=== PATIENT | female | born 1960 | race Caucasian/White ===

== ENCOUNTER → 2018-02-19 09:46 | Outpatient (CLI) | payer BC, SELFPAY ==
--- NOTE | 2018-02-19 09:51 | RAD_ITS ---
STUDY: X-RAY - PELVIS REASON FOR EXAM: Female, 57 years old. RA. TECHNIQUE: One view of the pelvis was obtained. COMPARISON: None. FINDINGS: There is a non-specific bowel gas pattern. Normal visualized soft tissue structures. Normal bilateral iliac wings, sacroiliac joints and visualized sacrum. Normal visualized bilateral superior and inferior pubic rami. Normal pubic symphysis. Normal ischial tuberosities. Normal visualized right femoral head. Normal right acetabulum. Normal right hip joint. Normal visualized left femoral head. Normal left acetabulum. Normal left hip joint. RAD/Pelvis 1 or 2 Views IMPRESSION: Normal x-ray examination of the pelvis. Electronically Signed: Jem Kaplan MD at 11:15 EST , Service support ,
[2018-02-19 12:34] LABS: Absolute Lymphocyte Count 1.28 X10^3/ul (0.83-4.51); Absolute Neutrophil Count 3.5 X10^3/uL (2.0-7.7); Basophil# 0.01 X10^3/uL; Basophil% 0.2 % (0-1); Eosinophil# 0.08 X10^3/uL; Eosinophils% 1.5 % (0-5); Hematocrit 44.4 % (37-47); Hemoglobin 14.6 g/dl (12.0-15.0); Lymphocyte # 1.28 X10^3/ul (4.0); Lymphocyte % 24.2 % (19-41); Mean Corp Hgb Conc 32.9 g/gl (32-36); Mean Corpuscular Hgb 30.5 pg (27.0-32.0); Mean Corpuscular Volume 92.7 fL (81-99); Mean Platelet Vol. 10.2 fl (6.2-12.0); Monocyte# 0.45 X10^3/uL; Monocyte% 8.5 % (0-10); Neutrophil # 3.45 X10^3/uL (2.7-7.7); Neutrophil % 65.4 % (47-70); POSITIVE COUNT NO; POSITIVE DIFFERENTIAL NO; POSITIVE MORPHOLOGY NO; Platelet Count 287 K/mm3 (150-450); RBC Distribution Width CV 13.1 % (11.6-14.6); RBC Distribution Width SD 44.3 fl (35.1-43.9); Red Blood Count 4.79 M/mm3 (4.2-5.4); White Blood Count 5.3 K/mm3 (4.4-11.0)
[2018-02-19 12:40] LABS: ALB/GLOB Ratio 1.2 RATIO (0.9-2.4); AST(SGOT) 40 U/L (15-37); Alanine Aminotransfer ALT/SGPT 107 U/L (13-56); Albumin, Serum 4.5 g/dL (3.2-5.0); Alkaline Phosphatase 122 U/L (45-117); Anion Gap 8 (5-15); BUN 13 mg/dL (7-18); BUN/Creat Ratio 19.2 RATIO (10-20); Chloride 105 mmol/L (98-107); Creatinine, Serum 0.68 mg/dL (0.55-1.02); EST Glomerular Filtration Rate 95 mL/min (>60); Est Glom Filt Rate - Afr Amer 115 mL/min (>60); Globulin 3.9 g/dL (2.2-4.2); Glucose 85 mg/dL (74-106); Potassium 3.7 mmol/L (3.5-5.1); Protein, Total 8.4 g/dL (6.4-8.2); Rheumatoid Factor < 10.0 IU/mL (<15); Sodium Level 141 mmol/L (136-145)
[2018-02-25 22:07] LABS: QNTFERON TB Mitogen Value > 10.00 IU/mL (.); QNTFERON TB Nil Value 0.06 IU/mL (.); QNTFERON TB1+ Ag Value 0.06 IU/mL (.); QNTFERON TB2+ Ag Value 0.04 IU/mL (.)
[2018-02-27 16:39] LABS: CCP IgG Antibodies 6 units (0-19); HEPATITIS B SURFACE AG Negative (Negative); HLA B27 Negative (.); Hep B Surface Antibodies Non Reactive (.); Hep C Antibodies 0.2 s/co ratio (0.0-0.9); QNTIFERON TB Positive Criteria Negative (Negative)
== END ==
PROVIDERS: Family Provider Family Medicine; PCP Family Medicine; Referring Provider Internal Medicine Rheumatology; Visit Provider Internal Medicine Rheumatology
DX: M05.79 Rheumatoid arthritis with rheumatoid factor of multiple sites without organ or systems involvement (principal); M15.9 Polyosteoarthritis, unspecified; M21.40 Flat foot [pes planus] (acquired), unspecified foot; M51.37 Other intervertebral disc degeneration, lumbosacral region
CPT/HCPCS: 36415; 72170; 80053; 81374; 85025; 86200; 86431; 86480; 86706; 86803; 87340

== ENCOUNTER → 2018-02-26 07:37 | Outpatient (CLI) | payer BC, SELFPAY ==
--- NOTE | 2018-02-26 07:42 | US_ITS ---
STUDY: ABDOMINAL ULTRASOUND - RIGHT UPPER QUADRANT REASON FOR VISIT: Female, 58 years old. Elevated liver enzymes. TECHNIQUE: Ultrasound evaluation of the right upper quadrant was performed with real-time and static sanchez-scale imaging. TECHNICAL QUALITY: Adequate. COMPARISON: None. FINDINGS: Liver: The liver measures 13.7 cm. There is increased echogenicity consistent with a mild degree of fatty infiltration. The bile ducts are within normal limits. There is hepatic color flow. The direction of portal flow is hepatopetal. There is no demonstrated mass lesion. Gallbladder: Normal distended gallbladder. The gallbladder wall measures 2.2 mm. There is a negative sonographic Alcantar's sign. There is no pericholecystic fluid. There are no gallstones. Common Bile Duct (C.B.D.): The common bile duct measures 3.9 mm. Pancreas: Normal size of the head, body and tail of the pancreas. There is normal echogenicity of the pancreas. There is no demonstrated pancreatic mass or cyst. Right Kidney: Normal size of the right kidney. The right kidney measures 10.8 cm x 4.2 cm x 4.3 cm. Normal renal cortex. The right cortex measures 1.6 cm. There is no demonstrated renal mass or cyst. There is no right hydronephrosis. US/Liver IMPRESSION: Mild degree of fatty infiltration of the liver. Electronically Signed: Ten Bass MD at 9:58 EST Tel [phone], Service support ,
--- OUTSIDE RECORDS SUMMARY | 2018-04-30 07:52 | XMS RPT_ITS ---
:1960 Author Organization [facility] Care Team Providers Name Role Phone Shruthi Henderson Attending Unavailable Shruthi Henderson Referring Unavailable Heather Siddiqui Primary Care Unavailable Shruthi Henderson Attending Unavailable Shruthi Henderson Referring Unavailable Heather Siddiqui Primary Care Unavailable SCOOTER BOLTON Attending Unavailable SCOOTER BOLTON Referring Unavailable ANDERSKAIDEN (RACK MAKER) Referring Unavailable ANDERS, KAIDEN (RACK MAKER) Attending Unavailable ANDERSKAIDEN (RACK MAKER) Referring Unavailable ANDERS, KAIDEN (RACK MAKER) Referring Unavailable ANDERSKAIDEN (RACK MAKER) Attending Unavailable HEATHER SIDDIQUI Referring Unavailable TESTRAKESCOOTER Attending Unavailable TESTRAKESCOOTER Referring Unavailable ELDERBROCKHEATHER Attending Unavailable ELDERBROCKHEATHER Referring Unavailable TESTRAKESCOOTER Referring Unavailable TESTRAKESCOOTER Referring Unavailable TESTRAKESCOOTER Attending Unavailable TESTRAKESCOOTER Referring Unavailable BITA, BRISA (RACK MAKER) Referring Unavailable BITA BRISA (RACK MAKER) Attending Unavailable ELDERBROCKHEATHER Referring Unavailable ELDERBROCKHEATHER Referring Unavailable TESTRAKESCOOTER Referring Unavailable TESTRAKESCOOTER Attending Unavailable LIVBROHEATHER LUND Referring Unavailable ELDERBROCKHEATHER Referring Unavailable ELDERBROCKHEATHER Referring Unavailable ELDERBROCKHEATHER Attending Unavailable OLEGARIO ALVARADO (RACK MAKER) Referring Unavailable PROBLEMS PROBLEMS DATE TYPE CONDITION / CODE ATTENDING STATUS SOURCE 02/19/2018 Unknown M15.9 - Shruthi Henderson Active [facility] Polyosteoarthritis, Community unspecified / Hospital M15.9(ICD-10) Repository 02/19/2018 Unknown M21.40 - Flat foot Shruthi Henderson Active [facility] [pes planus] Community (acquired), Hospital unspecified foot / Repository M21.40(ICD-10) 02/19/2018 Unknown M51.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, Hospital lumbosacral region / Repository M51.37(ICD-10) 02/19/2018 Unknown M05.79 - Rheumatoid Shruthi Henderson Active [facility] arthritis with Community rheumatoid factor of Hospital multiple sites Repository without organ or systems involvement / M05.79(ICD-10) 02/07/2018 Active Localized swelling, NA Active [facility] mass and lump, neck [facility] / R22.1(ICD-10) [place] Repository 12/17/2017 Active Other intervertebral NA Active [facility] disc degeneration, [facility] lumbar region / [place] M51.36(ICD-10) Repository 12/17/2017 Active Joint disorder, NA Active [facility] unspecified / [facility] M25.9(ICD-10) [place] Repository 07/04/2017 Active Pain in right foot / NA Active [facility] M79.671(ICD-10) [facility] [place] Repository 05/29/2017 Active Contusion of right NA Active [facility] lesser toe(s) [facility] without damage to [place] nail, initial Repository encounter / S90.121A(ICD-10) 05/29/2017 Active Unknown / TESTRAKE, Active [facility] UNK(Unknown) SCOOTER [facility] [place] Repository 05/23/2017 Active Encounter for other NA Active [facility] specified special [facility] examinations / [place] Z01.89(ICD-10) Repository 05/23/2017 Active Encounter for NA Active [facility] screening mammogram [facility] for malignant [place] neoplasm of breast / Repository Z12.31(ICD-10) 05/15/2017 Active Unspecified injury NA Active [facility] of left lower leg, [facility] initial encounter / [place] S89.92XA(ICD-10) Repository 04/07/2017 Active Other fatigue / NA Active [facility] R53.83(ICD-10) [facility] [place] Repository 04/02/2017 Active Pain in left foot / NA Active [facility] M79.672(ICD-10) [facility] [place] Repository PROCEDURES PROCEDURES No Procedure Records FoundRESULTS RESULTS LIVER Observed: 02/26/2018 Status: F Source: [place] 7:42 AM [facility] [facility] [address] [place] [address] Liver MR#: [id number] Acct: [id number] Name: BROOK PINA Rep #: [id number] : 1960 F 58 From: Ten Bass MD PCP: Cynthia HIGGINS,Heather Status: REG CLI Study: Liver Date of Exam: 02/26/18 Exam# [id number] Ordering Dr: Shruthi Henderson MD STUDY: ABDOMINAL ULTRASOUND - RIGHT UPPER QUADRANT REASON FOR VISIT: Female, 58 years old. Elevated liver enzymes. TECHNIQUE: Ultrasound evaluation of the right upper quadrant was performed with real-time and static sanchez-scale imaging. TECHNICAL QUALITY: Adequate. COMPARISON: None. FINDINGS: Liver: The liver measures 13.7 cm. There is increased echogenicity consistent with a mild degree of fatty infiltration. The bile ducts are within normal limits. There is hepatic color flow. The direction of portal flow is hepatopetal. There is no demonstrated mass lesion. Gallbladder: Normal distended gallbladder. The gallbladder wall measures 2.2 mm. There is a negative sonographic Alcantar's sign. There is no pericholecystic fluid. There are no gallstones. Common Bile Duct (C.B.D.): The common bile duct measures 3.9 mm. Pancreas: Normal size of the head, body and tail of the pancreas. There is normal echogenicity of the pancreas. There is no demonstrated pancreatic mass or cyst. Right Kidney: Normal size of the right kidney. The right kidney measures 10.8 cm x 4.2 cm x 4.3 cm. Normal renal cortex. The right cortex measures 1.6 cm. There is no demonstrated renal mass or cyst. There is no right hydronephrosis. US/Liver IMPRESSION: Mild degree of fatty infiltration of the liver. Electronically Signed: Ten Bass MD at 9:58 EST Tel [phone], Service support , CC: Heahter Siddiqui MD; Shruthi Henderson MD 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: Signed CBC W/DIFF, AUTOMATED Collected: 02/19/2018 Status: F Source: [place] 10:01 AM [facility] [place] TYPE CODE TESTS RESULT OUT OF RANGE REFERENCE UNITS LAB L100.1000 4.4-11.0 K/mm3 Normal WBC 5.3 LAB L100.1200 4.2-5.4 M/mm3 Normal RBC 4.79 LAB L100.1300 12.0-15.0 g/dl Normal HGB 14.6 LAB L100.1400 37-47 % Normal HCT 44.4 LAB L100.1500 81-99 fL Normal MCV 92.7 LAB L100.1600 27.0-32.0 pg Normal MCH 30.5 LAB L100.1700 32-36 g/gl Normal MCHC 32.9 LAB L100.1810 11.6-14.6 % Normal RDW CV 13.1 LAB L100.1820 35.1-43.9 fl High RDW SD 44.3 LAB L100.1900 150-450 K/mm3 Normal PLT 287 LAB L100.2000 6.2-12.0 fl Normal MPV 10.2 LAB L100.2100 47-70 % Normal NEUT% 65.4 LAB L100.2200 19-41 % Normal LY% 24.2 LAB L100.2300 0-10 % Normal MONO% 8.5 LAB L100.2400 0-5 % Normal EO% 1.5 LAB L100.2500 0-1 % Normal BASO% 0.2 LAB L100.2550 0.0-0.9 % Normal IM GRAN % 0.200 Result Comment: IG% - Immature Granulocytes (promyelocytes, myelocytes and metamyelocytes) > 1% indicates that a LEFT SHIFT is Present. LAB L100.2620 2.0-7.7 X10 3/uL Normal Absolute Neut 3.5 LAB L100.2720 0.83-4.51 X10 3/ul Normal Absolute Lymph 1.28 Performed By: #### L100.0100 #### [facility] [address] [place], [place], [address] COMPREHENSIVE METABOLIC Collected: 02/19/2018 Status: F Source: [place] [facility] 10:01 AM [facility] [place] TYPE CODE TESTS RESULT OUT OF RANGE REFERENCE UNITS LAB L501.0100 74-106 mg/dL Normal GLU 85 Result Comment: Please note revised GLUCOSE reference range effective 2017. LAB L501.1000 7-18 mg/dL Normal BUN 13 LAB L501.1100 0.55-1.02 mg/dL Normal CREAT,SERUM 0.68 Result Comment: The validity of the calculated GFR AND GFRAA in patients over 70 years has not been determined. Clinical correlation is essential. LAB L501.1110 >60 mL/min Normal EST GFR 95 Result Comment: Non- GFR Calc LAB L501.1115 >60 mL/min Normal EST GFR - AA 115 Result Comment: GFR Calc LAB L501.1300 10-20 RATIO Normal BUN/CRE 19.2 LAB L501.1500 6.4-8.2 g/dL High T PROT 8.4 LAB L501.1800 3.2-5.0 g/dL Normal ALB 4.5 LAB L501.1950 2.2-4.2 g/dL Normal GLOB 3.9 LAB L501.2000 0.9-2.4 RATIO Normal A/G 1.2 LAB L501.2200 8.5-10.1 mg/dL CA Normal 9.0 LAB L501.4100 15-37 U/L High AST 40 LAB L501.4305 45-117 U/L High ALK P 122 LAB L501.4405 13-56 U/L High ALT 107 LAB L501.4600 0.20-1.00 mg/dL T Normal BILI 0.50 LAB L501.5300 136-145 mmol/L NA Normal 141 LAB L501.5600 3.5-5.1 mmol/L K Normal 3.7 LAB L501.5900 98-107 mmol/L CL Normal 105 LAB L501.6100 21.0-32.0 mmol/L Normal CO2 28.0 LAB L501.6200 5-15 Normal GAP 8 Performed By: #### L500.4050, L505.7010 #### [facility] [address] [place], [place], [address] RHEUMATOID FACTOR Collected: 02/19/2018 Status: F Source: [place] 10:01 AM [facility] [place] TYPE CODE TESTS RESULT OUT OF RANGE REFERENCE UNITS LAB L505.7010 <15 IU/mL Normal RHEUMATOID FAC < 10.0 Performed By: #### L500.4050, L505.7010 #### [facility] [address] [place], [place], [id number] HEPATITIS B SURFACE Collected: 02/19/2018 Status: F Source: [place] AG 10:01 AM [facility] [place] TYPE CODE TESTS RESULT OUT OF RANGE REFERENCE UNITS LAB L3100.0400 Negative Normal HB Negative SURF AG Result Comment: Performed at: [facility] [id number] [place] Bottom Maker: Antonio Montalvo PhD, Phone: [phone] Performed at: [address] [place] [id number] [place] Maker: Hasmukh Maciel PhD, Phone: [phone] Performed at: [address] [id number] [place] Maker: Calin Drew MD, Phone: [phone] Performed By: #### L3100.0390, L3100.0528, L3100.0625, L3400.8000, L3410.1400, L4600.0100 #### [facility] (refer to report for specific site) refer to report for address and phone number HEP B SURFACE Collected: 02/19/2018 Status: F Source: [place] ANTIBODIES 10:01 AM [facility] [place] [place] TYPE CODE TESTS RESULT OUT OF RANGE REFERENCE UNITS LAB L3100.0528 . Normal Hep B Non Reactive Tiff AB Result Comment: Non Reactive: Inconsistent with immunity, less than 10 mIU/mL Reactive: Consistent with immunity, greater than 9.9 mIU/mL Performed By: #### L3100.0390, L3100.0528, L3100.0625, L3400.8000, L3410.1400, L4600.0100 #### [facility] (refer to report for specific site) refer to report for address and phone number HEPATITIS C ANTIBODIES Collected: 02/19/2018 Status: F Source: [place] 10:01 AM [facility] [place] [place] TYPE CODE TESTS RESULT OUT OF RANGE REFERENCE UNITS LAB L3100.0650 0.0-0.9 s/co ratio Normal HEP C AB 0.2 Result Comment: Negative: < 0.8 Indeterminate: 0.8 - 0.9 Positive: > 0.9 The CDC recommends that a positive HCV antibody result be followed up with a HCV Nucleic Acid Amplification test (186517). Performed By: #### L3100.0390, L3100.0528, L3100.0625, L3400.8000, L3410.1400, L4600.0100 #### [facility] (refer to report for specific site) refer to report for address and phone number QUANTIFERON TB-GOLD+ Collected: 02/19/2018 Status: F Source: [place] 10:01 AM [facility] [place] TYPE CODE TESTS RESULT OUT OF RANGE REFERENCE UNITS LAB L3400.8025 . Normal QFT TB Comment GOLD Result Comment: The QuantiFERON-TB Gold Plus result is determined by subtracting the Nil value from either TB antigen (Ag) tube. The mitogen tube serves as a control for the test. LAB L3400.8035 . IU/mL Normal QFT TB1+ AG 0.06 [facility] L3400.8045 . IU/mL Normal QFT TB2+ AG 0.04 [facility] L3400.8055 . IU/mL Normal QFT NIL VALUE 0.06 LAB L3400.8065 . IU/mL Normal QFT MITOGEN > 10.00 [facility] L3400.8075 Negative Normal QFT TB POS Negative CRIT Result Comment: The specimen received for QuantiFERON testing was incubated by the ordering institution. Specific procedures outlined in our Directory of Services and in the package insert for the QuantiFERON Gold (In Tube) test must be followed to enable for proper stimulation of cells for the production of interferon gamma. Performed By: #### L3100.0390, L3100.0528, L3100.0625, L3400.8000, L3410.1400, L4600.0100 #### [facility] (refer to report for specific site) refer to report for address and phone number HLA B27 Collected: 02/19/2018 Status: F Source: [place] 10:01 AM [facility] [place] TYPE CODE TESTS RESULT OUT OF RANGE REFERENCE UNITS LAB L3410.1500 . Normal HLA Negative B27 Result Comment: HLA-B*27 Negative B27 allele interpretation for all loci based on IMGT/HLA database version 3.33.0 This test was developed and its performance characteristics determined by [facility]. It has not been cleared or approved by the Food and Drug Administration. [facility] CLIA ID Number [id number] This test was performed using PCR (Polymerase Chain Reaction)/SSOP (Sequence Specific Oligonucleotide Probes) technique. SBT (Sequence Based Typing) and/or SSP (Sequence Specific Primers) may be used as supplemental methods when necessary. Please contact [facility] Customer Service at if you have any questions. Director of [facility] Laboratory Dr Hasmukh Maciel, PhD Performed By: #### L3100.0390, L3100.0528, L3100.0625, L3400.8000, L3410.1400, L4600.0100 #### [facility] (refer to report for specific site) refer to report for address and phone number CCP IGG ANTIBODIES Collected: 02/19/2018 Status: F Source: [place] 10:01 [facility] REPOSITORY TYPE CODE TESTS RESULT OUT OF RANGE REFERENCE UNITS LAB L4600.0100 0-19 units Normal ANTI-CCP 6 [id number] Result Comment: Negative <20 Weak positive 20 - 39 Moderate positive 40 - 59 Strong positive >59 Performed By: #### L3100.0390, L3100.0528, L3100.0625, L3400.8000, L3410.1400, L4600.0100 #### [facility] (refer to report for specific site) refer to report for address and phone number PELVIS 1 OR 2 VIEWS Observed: 02/19/2018 Status: F Source: [place] 9:52 AM [facility] [place] [facility] [address] [place] [address] Pelvis 1 or 2 Views MR#: [id number] Acct: [id number] Name: BROOK PINA Leda Rep #: [id number] : 1960 F 57 From: Jem Kaplan MD PCP: Heather Siddiqui MD Status: REG CLI Study: Pelvis 1 or 2 Views Date of Exam: 02/19/18 Exam# [id number] Ordering Dr: Shruthi Henderson MD STUDY: X-RAY - PELVIS REASON FOR EXAM: Female, 57 years old. RA. TECHNIQUE: One view of the pelvis was obtained. COMPARISON: None. FINDINGS: There is a non-specific bowel gas pattern. Normal visualized soft tissue structures. Normal bilateral iliac wings, sacroiliac joints and visualized sacrum. Normal visualized bilateral superior and inferior pubic rami. Normal pubic symphysis. Normal ischial tuberosities. Normal visualized right femoral head. Normal right acetabulum. Normal right hip joint. Normal visualized left femoral head. Normal left acetabulum. Normal left hip joint. RAD/Pelvis 1 or 2 Views IMPRESSION: Normal x-ray examination of the pelvis. Electronically Signed: Jem Kaplan MD at 11:15 EST , Service support , CC: Heather Siddiqui MD; Shruthi Henderson MD 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: Signed US THYROID/PARATHYROID Observed: 02/07/2018 Status: F Source: [address] 8:05 AM [facility] REPOSITORY * * *Final Report* * * DATE OF EXAM: Feb 07 2018 8:05AM [facility] [place] 1048 - US THYROID/PARATHYROID / PROCEDURE REASON: Localized swelling, mass and lump, neck * * * * Physician Interpretation * * * * Ultrasound Thyroid: HISTORY: 57 years old Clinical information: Localized swelling, mass and lump, neck RIGHT lobe nodule on physical exam TECHNIQUE: Images provided: Sagittal and axial images of the thyroid.Images stored and permanent archive. Comparison: None RESULT: Measurements: Right lobe 4.5 x 2.7 x 2.6 cm . Left lobe 3.9 x 1.4 x 1.3 cm . Isthmus 0.4 cm. Thyroid texture: Unremarkable . Nodules: (If there are nodules present than measurements of largest ones given below) Right lobe: There is a large complex nodule next solid and cystic measuring 3.3 x 2.6 cm. It is in the lower pole the RIGHT lobe. . Left lobe: None . Isthmus: None . IMPRESSION: Large complex nodule RIGHT lobe thyroid. Biopsy recommended 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: DAVID Transcribe Date/Time: Feb 07 2018 8:37A Dictated by : ROMY DELONG DO This examination was interpreted and the report reviewed and electronically signed by: ROMY DELONG DO on Feb 07 2018 8:39AM EST [id number] Observed: 02/07/2018 Status: COMPLETED Source: [address] 8:01 AM [facility] REPOSITORY HNO ID: [id number] Author: Belkis Wood Rdms Service: (none) Author Type: (none) Type: Progress Notes Filed: 02/07/2018 8:01 AM Note Text: Radiology Service Progress Note PATIENT NAME: Brook Pina DATE OF SERVICE: February 07, 2018 TIME: 8:01 AM PATIENT IDENTITY VERIFICATION COMPLETED USING TWO (2) METHODS: Patient confirmed name verbally and Date of . PATIENT GENDER DATA: Female. status: : No status: NO. PATIENT RELEVANT IMPLANT DATA REVIEWED: Not Applicable RADIOLOGY DEPARTMENT: Ultrasound PERIPHERAL IV DATA: Not applicable SIGNED BY: Belkis Wood Rdms February 07, 2018 8:01 AM PROGRESS Observed: 02/01/2018 Status: COMPLETED Source: [address] 3:45 PM [facility] REPOSITORY HNO ID: [id number] Author: Kaiden Mcnamara Service: (none) Author Type: Nurse Practitioner Type: Progress Notes Filed: 02/01/2018 4:07 PM Note Text: Chief Complaint Patient presents with: Mass HPI Brook Pina is a 57 year old female who presents here today for Above Complaints. Patient presents today for evaluation of thyroid. Patient believes that she has a lump on her thyroid. Had a normal TSH in 04/2017. Location is to the right side of the thyroid. No pain. Does state that she feels it when she swallows. Duration is approximately 3 weeks. No change in size. States that she was ill approximately one month ago with sneezing, sore throat, fatigue, coughing. These symptoms have resolved. No fevers or chills. Some hot flashes. No chest pain, shortness of breath, constipation, diarrhea. Does state she had some palpitations last month when she was ill. Patient was taking decongestants. Denies any swelling of her lymph nodes. No throat swelling. Patient is a former smoker. Occasional alcohol use. Past medical history, appointments, medications, allergies reviewed. Previous Medical History PAST MEDICAL HISTORY Diagnosis Date - Abdominal pain, epigastric - Arthritis of right hip - Diverticulosis of colon (without mention of hemorrhage) - Dysthymic disorder Depression (non-psychotic) - Internal hemorrhoids without mention of complication Previous Surgical History PAST SURGICAL HISTORY Procedure Laterality Date - BX OF BREAST; INCISIONAL 1987 Bx of breast, incisional - left nipple - CARPAL TUNNEL 09/13/2015, 10/18/2015 right 09/12, left 10/17 - DELIVERY ONLY , low cervical - COLONOSCOP W/ OR W/O BRSH SPEC 08/18/11 repeat 10 years - EGD W/O OR W/BRUSH/WASH 01/30/2013 EGD - LIGATE FALLOPIAN TUBE Tubal ligation - REMOVAL OF TONSILS,<12 Y/O Tonsillectomy - US BX OF BREAST NEEDLE 2007 Right, benign Family History FAMILY HISTORY Problem Relation Age of Onset - Alcohol/Drug Paternal Grandfather - Allergies Mother - Allergies Sister - Cancer Maternal Grandmother - Colon Cancer Maternal Aunt - Diabetes Brother - Alzheimer's Disease Mother - other (depression [Other]) Sister 2 sisters - other (depression [Other]) Mother - Hypertension Sister - Hypertension Sister - Stroke Mother TIA's - Coronary Artery Disease Maternal Grandfather - Aneurysm Father 84 - Arthritis Unknown Maternal side of family Patient Allergies ALLERGIES Allergen Reactions - Seasonal Allergies Other: See Comments headaches Current Medications Current Outpatient Prescriptions on File Prior to Visit: LORazepam (ATIVAN) 0.5 mg tab Take 1 tablet by mouth twice daily as needed for up to 30 days. MELATONIN ORAL Take by mouth. meloxicam (MOBIC) 15 mg tablet Take 1 tablet by mouth once daily. With food. venlafaxine ER (EFFEXOR XR) 37.5 mg 24 hr capsule Take 1-2 capsules by mouth once daily. No current facility-administered medications on file prior to visit. Social History Social History Marital status: Spouse name: Jammie Years of education: Number of children: 2 Social History Main Topics Smoking status: Former Smoker Packs/day: 0.00 Years: 0.00 Smokeless tobacco: Never Used Alcohol use: Yes 36.0 oz/week Comment: Occasionally Drug use: No Sexual activity: Yes Partners with: Male control/protection: Tubal Ligation REVIEW OF SYSTEMS: as above ? Reviewed relevant PMHx, PSHx, Social Hx, current medications and allergies. EXAM: BP 127/81 Pulse 72 Temp 36.7 ?C (98 ?F) (Tympanic) Wt 67.1 kg (148 lb) BMI 28.19 kg/m? General Appearance: Well appearing, alert, in no acute distress, well-hydrated, well nourished.. Head: Normocephalic, no masses, lesions, tenderness or abnormalities. Eyes: Anicteric sclera. Pupils are equally round and reactive to light. Extraocular movements are intact. . Ears: External ears normal, canals clear. Nose/Sinuses: Nares normal, septum midline, mucosa normal, no drainage or sinus tenderness. Oropharynx: Lips, mucosa, and tongue normal, teeth and gums normal, oropharynx normal. Neck: No adenopathy, Positive findings: adenopathy thyroid: to the right, base of the thyroid, soft, difficult to palpate. Difficult to visualize movement with swallowing. Lungs: lungs clear to auscultation. No wheezing, rhonchi, rales. Heart: RRR without murmur, gallop, or rubs. No ectopy. Health Maintenance List HEPATITIS C SCREENING due on 2005 DTAP,TDAP,TD(2 - Tdap) due on 06/05/2013 LIPID SCREEN due on 07/16/2017 MAMMOGRAM due on 05/23/2018 DIABETES SCREEN due on 12/17/2020 COLORECTAL CANCER SCREENING,SEE MODIFIER due on 08/17/2021 PAP EVERY 5 YEARS due on 05/23/2022 HPV EVERY 5 YEARS due on 05/23/2022 INFLUENZA Completed Data reviewed Component Latest Ref Rng AND Units 04/07/2017 05/23/2017 12/17/2017 01/03/2018 Protein, Total 6.3 - 8.0 g/dL 7.3 Albumin 3.9 - 4.9 g/dL 4.5 Calcium 8.5 - 10.2 mg/dL 9.4 Bilirubin, Total 0.2 - 1.3 mg/dL 0.2 Alkaline Phosphatase 34 - 123 U/L 117 AST 13 - 35 U/L 58 (H) Glucose 74 - 99 mg/dL 77 BUN 7 - 21 mg/dL 9 Creatinine 0.58 - 0.96 mg/dL 0.71 Sodium 136 - 144 mmol/L 140 Potassium 3.7 - 5.1 mmol/L 4.3 Chloride 97 - 105 mmol/L 101 CO2 22 - 30 mmol/L 23 Anion Gap 9 - 18 mmol/L 16 ALT 7 - 38 U/L 94 (H) eGFR- >60 eGFR-All Other Races . >60 YANY Negative Negative YANY Titer Negative Negative YANY Pattern Not applicable for negative result. Rapid Strep neg - pos NEG Quality Check yes/no Yes GASPCR Specimen Source Throat Swab Group A Strep PCR Result Negative for Group A Streptococcus by PCR. TSH 0.400 - 5.500 uU/mL 3.030 CA 125 <39 U/mL 12 Rheumatoid Factor <16 IU/mL 28 (H) WSR 0 - 20 mm/hr 5 CRP <0.9 mg/dL 0.1 ASSESSMENT/PLAN: 1. Localized swelling, mass and lump, neck - ICD9: 784.2, ICD10: R22.1 - Possible enlargement of the right wing of thyroid vs lipoma. - US THYROID/PARATHYROID Get imaging, refer to general surgery if needing. Kaiden Mcnamara APRN.[facility] CNOV Observed: 02/01/2018 Status: COMPLETED Source: [address] 3:40 PM [facility] REPOSITORY Office Visit (FAMPWS) BROOK PINA ([id number]) 1960 F Date Time Provider Department 02/01/18 3:40 PM KAIDEN MCNAMARA (VIKTOR) FAMPWS During your visit today, we recorded the following information about you: Temperature Pulse Blood pressure Weight 98 degrees 72/minute 127/81 67.1 kg Kaiden Mcnamara APRN.RACK MAKER 02/01/2018 4:07 PM Signed Chief Complaint Patient presents with: Mass HPI Brook Pina is a 57 year old female who presents here today for Above Complaints. Patient presents today for evaluation of thyroid. Patient believes that she has a lump on her thyroid. Had a normal TSH in 04/2017. Location is to the right side of the thyroid. No pain. Does state that she feels it when she swallows. Duration is approximately 3 weeks. No change in size. States that she was ill approximately one month ago with sneezing, sore throat, fatigue, coughing. These symptoms have resolved. No fevers or chills. Some hot flashes. No chest pain, shortness of breath, constipation, diarrhea. Does state she had some palpitations last month when she was ill. Patient was taking decongestants. Denies any swelling of her lymph nodes. No throat swelling. Patient is a former smoker. Occasional alcohol use. Past medical history, appointments, medications, allergies reviewed. Previous Medical History PAST MEDICAL HISTORY Diagnosis Date - Abdominal pain, epigastric - Arthritis of right hip - Diverticulosis of colon (without mention of hemorrhage) - Dysthymic disorder Depression (non-psychotic) - Internal hemorrhoids without mention of complication Previous Surgical History PAST SURGICAL HISTORY Procedure Laterality Date - BX OF BREAST; INCISIONAL 1987 Bx of breast, incisional - left nipple - CARPAL TUNNEL 09/13/2015, 10/18/2015 right 09/12, left 10/17 - DELIVERY ONLY , low cervical - COLONOSCOP W/ OR W/O [facility] SPEC 08/18/11 repeat 10 years - EGD W/O OR W/BRUSH/WASH 01/30/2013 EGD - LIGATE FALLOPIAN TUBE Tubal ligation - REMOVAL OF TONSILS,<12 Y/O Tonsillectomy - US BX OF BREAST NEEDLE 2007 Right, benign Family History FAMILY HISTORY Problem Relation Age of Onset - Alcohol/Drug Paternal Grandfather - Allergies Mother - Allergies Sister - Cancer Maternal Grandmother - Colon Cancer Maternal Aunt - Diabetes Brother - Alzheimer's Disease Mother - other (depression [Other]) Sister 2 sisters - other (depression [Other]) Mother - Hypertension Sister - Hypertension Sister - Stroke Mother TIA's - Coronary Artery Disease Maternal Grandfather - Aneurysm Father 84 - Arthritis Unknown Maternal side of family Patient Allergies ALLERGIES Allergen Reactions - Seasonal Allergies Other: See Comments headaches Current Medications Current Outpatient Prescriptions on File Prior to Visit: LORazepam (ATIVAN) 0.5 mg tab Take 1 tablet by mouth twice daily as needed for up to 30 days. MELATONIN ORAL Take by mouth. meloxicam (MOBIC) 15 mg tablet Take 1 tablet by mouth once daily. With food. venlafaxine ER (EFFEXOR XR) 37.5 mg 24 hr capsule Take 1-2 capsules by mouth once daily. No current facility-administered medications on file prior to visit. Social History Social History Marital status: Spouse name: Jammie Years of education: Number of children: 2 Social History Main Topics Smoking status: Former Smoker Packs/day: 0.00 Years: 0.00 Smokeless tobacco: Never Used Alcohol use: Yes 36.0 oz/week Comment: Occasionally Drug use: No Sexual activity: Yes Partners with: Male control/protection: Tubal Ligation REVIEW OF SYSTEMS: as above ? Reviewed relevant PMHx, PSHx, Social Hx, current medications and allergies. EXAM: BP 127/81 Pulse 72 Temp 36.7 ?C (98 ?F) (Tympanic) Wt 67.1 kg (148 lb) BMI 28.19 kg/m? General Appearance: Well appearing, alert, in no acute distress, well-hydrated, well nourished.. Head: Normocephalic, no masses, lesions, tenderness or abnormalities. Eyes: Anicteric sclera. Pupils are equally round and reactive to light. Extraocular movements are intact. . Ears: External ears normal, canals clear. Nose/Sinuses: Nares normal, septum midline, mucosa normal, no drainage or sinus tenderness. Oropharynx: Lips, mucosa, and tongue normal, teeth and gums normal, oropharynx normal. Neck: No adenopathy, Positive findings: adenopathy thyroid: to the right, base of the thyroid, soft, difficult to palpate. Difficult to visualize movement with swallowing. Lungs: lungs clear to auscultation. No wheezing, rhonchi, rales. Heart: RRR without murmur, gallop, or rubs. No ectopy. Health Maintenance List HEPATITIS C SCREENING due on 2005 DTAP,TDAP,TD(2 - Tdap) due on 06/05/2013 LIPID SCREEN due on 07/16/2017 MAMMOGRAM due on 05/23/2018 DIABETES SCREEN due on 12/17/2020 COLORECTAL CANCER SCREENING,SEE MODIFIER due on 08/17/2021 PAP EVERY 5 YEARS due on 05/23/2022 HPV EVERY 5 YEARS due on 05/23/2022 INFLUENZA Completed Data reviewed Component Latest Ref Rng AND Units 04/07/2017 05/23/2017 12/17/2017 01/03/2018 Protein, Total 6.3 - 8.0 g/dL 7.3 Albumin 3.9 - 4.9 g/dL 4.5 Calcium 8.5 - 10.2 mg/dL 9.4 Bilirubin, Total 0.2 - 1.3 mg/dL 0.2 Alkaline Phosphatase 34 - 123 U/L 117 AST 13 - 35 U/L 58 (H) Glucose 74 - 99 mg/dL 77 BUN 7 - 21 mg/dL 9 Creatinine 0.58 - 0.96 mg/dL 0.71 Sodium 136 - 144 mmol/L 140 Potassium 3.7 - 5.1 mmol/L 4.3 Chloride 97 - 105 mmol/L 101 CO2 22 - 30 mmol/L 23 Anion Gap 9 - 18 mmol/L 16 ALT 7 - 38 U/L 94 (H) eGFR- >60 eGFR-All Other Races . >60 YANY Negative Negative YANY Titer Negative Negative YANY Pattern Not applicable for negative result. Rapid Strep neg - pos NEG Quality Check yes/no Yes GASPCR Specimen Source Throat Swab Group A Strep PCR Result Negative for Group A Streptococcus by PCR. TSH 0.400 - 5.500 uU/mL 3.030 CA 125 <39 U/mL 12 Rheumatoid Factor <16 IU/mL 28 (H) WSR 0 - 20 mm/hr 5 CRP <0.9 mg/dL 0.1 ASSESSMENT/PLAN: 1. Localized swelling, mass and lump, neck - ICD9: 784.2, ICD10: R22.1 - Possible enlargement of the right wing of thyroid vs lipoma. - US THYROID/PARATHYROID Get imaging, refer to general surgery if needing. Kaiden Mcnamara, PUBLIC TRANSIT TROLLEY DRIVER.RACK MAKER Referring Provider: SELF [[id number]] Allergies As of Date: 02/01/2018 Noted Allergy Reaction SEASONAL ALLERGIES 07/11/2011 14 - Other: See Comments Comments: headaches Date Reviewed: 02/01/2018 Reviewed by: Rosa L Scheitler Foot Gatherer - Fully Assessed Reason for Visit: Mass [64] Primary Visit Diagnosis:Localized swelling, mass and lump, neck [R22.1] Order(s):US THYROID/PARATHYROID [[id number]] Order #: [id number] FUTURE Prescriptions as of 02/01/2018 Sig: LORAZEPAM 0.5 MG TABLET Take 1 tablet by mouth twice * MELATONIN ORAL Take by mouth. MELOXICAM 15 MG TABLET Take 1 tablet by mouth once d* VENLAFAXINE ER 37.5 MG CAPSUL* Take 1-2 capsules by mouth on* Problem List As Of Date 02/01/2018 Noted Resolved BUNION [M21.619] INVALID FOR* Depressive Disorder, not Elsewhere Classified [*INVALID FOR* Family history of abdominal aortic aneurysm [Z8*INVALID FOR* Recurrent cold sores [B00.1] INVALID FOR* PMDD (premenstrual dysphoric disorder) [F32.81] INVALID FOR* Uterine fibroid [D25.9] INVALID FOR* Pelvic pain in female [R10.2] INVALID FOR* Epigastric pain [R10.13] INVALID FOR* Nausea [R11.0] INVALID FOR* Anxiety [F41.9] INVALID FOR* Disposition: Return if symptoms worsen or fail to improve. Follow-up and Disposition History Recorded Encounter Status:Closed by KAIDEN MCNAMARA CNP on 02/01/18 GROUP A STREP BY Collected: 01/03/2018 Status: F Source: [facility] 4:43 PM [facility] [place] REPOSITORY TYPE CODE TESTS RESULT OUT OF REFERENCE UNITS RANGE LAB GASSRC Throat Swab GAS Specimen Source LAB PCRGAS Negative for Group A Strep Group A PCR Streptococcus by PCR. Result Comment: This test was developed and its performance characteristics determined by [facility] Endy Apodaca [facility] [place] ([facility]). It has not been cleared or approved by the FDA. -[facility] is regulated under CLIA as qualified to perform high-complexity testing. This test is used for clinical purposes. It should not be regarded as inv estigational or for research. Performed By: #### GASPCR #### [facility] [address] [place], [place] [address] PROGRESS Observed: 01/03/2018 Status: COMPLETED Source: [address] 4:02 PM [facility] REPOSITORY HNO ID: [id number] Author: Castro Coronel Service: (none) Author Type: Physician Pattern Drafter Type: Progress Notes Filed: 01/03/2018 5:17 PM Note Text: 01/03/2018 Patient presents with: URI SUBJECTIVE: This is a 57 year old that is here today for Complaint(s) of sore throat x today. + right ear pain associated. Both ears feel full per patient. Minimal congestion. + diarrhea earlier today, no blood. Denies fever/chills, cough, SOB, wheezing, vomiting, abdominal pain. PAST MEDICAL HISTORY Diagnosis Date - Abdominal pain, epigastric - Arthritis of right hip - Diverticulosis of colon (without mention of hemorrhage) - Dysthymic disorder Depression (non-psychotic) - Internal hemorrhoids without mention of complication ALLERGIES Seasonal Allergies MEDICATIONS Current Outpatient Prescriptions: LORazepam (ATIVAN) 0.5 mg tab Take 1 tablet by mouth twice daily as needed for up to 30 days. venlafaxine ER (EFFEXOR XR) 37.5 mg 24 hr capsule Take 1-2 capsules by mouth once daily. meloxicam (MOBIC) 15 mg tablet Take 1 tablet by mouth once daily. With food. MELATONIN ORAL Take by mouth. No current facility-administered medications for this visit. SOCIAL HISTORY Social History Marital status: Spouse name: Jammie Years of education: Number of children: 2 Social History Main Topics Smoking status: Former Smoker Packs/day: 0.00 Years: 0.00 Smokeless tobacco: Never Used Alcohol use: Yes 36.0 oz/week Comment: Occasionally Drug use: No Sexual activity: Yes Partners with: Male control/protection: Tubal Ligation REVIEW OF SYSTEMS All other reviewed and negative other than HPI. OBJECTIVE: BP 120/80 Pulse 78 Temp 36.5 ?C (97.7 ?F) (Left Tympanic) Resp 16 Wt 67.1 kg (148 lb) BMI 28.19 kg/m? APPEARANCE alert, in no acute distress, well-hydrated, well nourished. EYES PERRLA, conjunctiva and sclera normal. EARS External ears normal, canals clear. TMs normal BRAYDEN NOSE/SINUS Nares normal. Septum midline. Mucosa normal. No drainage or sinus tenderness. THROAT + posterior oropharyngeal erythema, no exudate. Uvula midline NECK Supple, + BRAYDEN anterior cervical adenopathy; HEART RRR with normal S1 and S2 appreciated LUNG clear to auscultation, No wheezing, rhonchi, rales. ASSESSMENT/PLAN: 1. Sore throat - ICD9: 462, ICD10: J02.9 - Rapid Strep negative in the office today and Throat culture pending - Discussed supportive care treatment with fluids, rest and analgesia. - The patient may also use warm salt water gargles, throat lozenges and/or OTC throat spray as needed and nasal saline gtts and suction prn. - The patient should follow up in 3-5 days if symptoms persist or worsen - Call back if drooling, increased temperature, symptoms of dehydration and/or still sick in one week - RAPID STREP TEST B/O - GROUP A STREPTOCOCCUS BY PCR The patient indicates understanding of these issues and agrees with the plan. Reviewed red flags and when to seek care sooner. Castro Coronel PA-C CNOV Observed: 01/03/2018 Status: COMPLETED Source: [address] 4:00 PM [facility] REPOSITORY Office Visit (WSTR) BROOK PINA ([id number]) 1960 F Date Time Provider Department 01/03/18 4:00 PM CASTRO CORONEL) WS During your visit today, we recorded the following information about you: Temperature Pulse Respiration Blood pressure 97.7 degrees 78/minute 16/minute 120/80 Weight 67.1 kg Castro Coronel PA-C 01/03/2018 5:17 PM Signed 01/03/2018 Patient presents with: URI SUBJECTIVE: This is a 57 year old that is here today for Complaint(s) of sore throat x today. + right ear pain associated. Both ears feel full per patient. Minimal congestion. + diarrhea earlier today, no blood. Denies fever/chills, cough, SOB, wheezing, vomiting, abdominal pain. PAST MEDICAL HISTORY Diagnosis Date - Abdominal pain, epigastric - Arthritis of right hip - Diverticulosis of colon (without mention of hemorrhage) - Dysthymic disorder Depression (non-psychotic) - Internal hemorrhoids without mention of complication ALLERGIES Seasonal Allergies MEDICATIONS Current Outpatient Prescriptions: LORazepam (ATIVAN) 0.5 mg tab Take 1 tablet by mouth twice daily as needed for up to 30 days. venlafaxine ER (EFFEXOR XR) 37.5 mg 24 hr capsule Take 1-2 capsules by mouth once daily. meloxicam (MOBIC) 15 mg tablet Take 1 tablet by mouth once daily. With food. MELATONIN ORAL Take by mouth. No current facility-administered medications for this visit. SOCIAL HISTORY Social History Marital status: Spouse name: Jammie Years of education: Number of children: 2 Social History Main Topics Smoking status: Former Smoker Packs/day: 0.00 Years: 0.00 Smokeless tobacco: Never Used Alcohol use: Yes 36.0 oz/week Comment: Occasionally Drug use: No Sexual activity: Yes Partners with: Male control/protection: Tubal Ligation REVIEW OF SYSTEMS All other reviewed and negative other than HPI. OBJECTIVE: BP 120/80 Pulse 78 Temp 36.5 ?C (97.7 ?F) (Left Tympanic) Resp 16 Wt 67.1 kg (148 lb) BMI 28.19 kg/m? APPEARANCE alert, in no acute distress, well-hydrated, well nourished. EYES PERRLA, conjunctiva and sclera normal. EARS External ears normal, canals clear. TMs normal BRAYDEN NOSE/SINUS Nares normal. Septum midline. Mucosa normal. No drainage or sinus tenderness. THROAT + posterior oropharyngeal erythema, no exudate. Uvula midline NECK Supple, + BRAYDEN anterior cervical adenopathy; HEART RRR with normal S1 and S2 appreciated LUNG clear to auscultation, No wheezing, rhonchi, rales. ASSESSMENT/PLAN: 1. Sore throat - ICD9: 462, ICD10: J02.9 - Rapid Strep negative in the office today and Throat culture pending - Discussed supportive care treatment with fluids, rest and analgesia. - The patient may also use warm salt water gargles, throat lozenges and/or OTC throat spray as needed and nasal saline gtts and suction prn. - The patient should follow up in 3-5 days if symptoms persist or worsen - Call back if drooling, increased temperature, symptoms of dehydration and/or still sick in one week - RAPID STREP TEST B/O - GROUP A STREPTOCOCCUS BY PCR The patient indicates understanding of these issues and agrees with the plan. Reviewed red flags and when to seek care sooner. Castor Coronel PA-C Referring Provider: SELF [200] Allergies As of Date: 01/03/2018 Noted Allergy Reaction SEASONAL ALLERGIES 07/11/2011 14 - Other: See Comments Comments: headaches Date Reviewed: 01/03/2018 Reviewed by: Joyce Anthony Ma - Fully Assessed Reason for Visit: URI [115] Primary Visit Diagnosis:Sore throat [J02.9] Order(s):RAPID STREP TEST B/O [[id number]] Order #: [id number] GROUP A STREPTOCOCCUS BY PCR [SQGASPCR] Order #: [id number]. #:[id number] Prescriptions as of 01/03/2018 Sig: LORAZEPAM 0.5 MG TABLET Take 1 tablet by mouth twice * VENLAFAXINE ER 37.5 MG CAPSUL* Take 1-2 capsules by mouth on* MELOXICAM 15 MG TABLET Take 1 tablet by mouth once d* MELATONIN ORAL Take by mouth. Problem List As Of Date 01/03/2018 Noted Resolved BUNION [M21.619] INVALID FOR* Depressive Disorder, not Elsewhere Classified [*INVALID FOR* Family history of abdominal aortic aneurysm [Z8*INVALID FOR* Recurrent cold sores [B00.1] INVALID FOR* PMDD (premenstrual dysphoric disorder) [F32.81] INVALID FOR* Uterine fibroid [D25.9] INVALID FOR* Pelvic pain in female [R10.2] INVALID FOR* Epigastric pain [R10.13] INVALID FOR* Nausea [R11.0] INVALID FOR* Anxiety [F41.9] INVALID FOR* Encounter Status:Closed by CASTRO CORONEL PA-C on 01/03/18 XR LUMBAR 3V Observed: 12/17/2017 Status: F Source: [address] AP/LAT/L5-S1 12:27 PM [facility] REPOSITORY * * *Final Report* * * DATE OF EXAM: Dec 17 2017 12:27PM WOX [id number] - XR LUMBAR 3V AP/LAT/L5-S1 / PROCEDURE REASON: DDD (degenerative disc disease), lumbar * * * * Physician Interpretation * * * * EXAM: LUMBAR SPINE, 3 VIEWS CLINICAL: 59-year-old female with degenerative disc disease TECHNIQUE: AP, lateral coned down lateral COMPARISON: None RESULTS: Counting reference: Anatomic Variant: None. L4-5 is considered the level of the iliac crest and assume there are 5 lumbar-type vertebrae. Mild levoscoliosis centered at L1/L2. Prominent lumbar lordosis. Mild disc space narrowing L2/L3 and L3/L4 and moderate narrowing at L4/L5. Minimal approximately 4 mm grade 1 anterolisthesis of L5 relation S1. Small osteophytes anteriorly throughout the lumbar spine. Vertebral bodies and pedicles are intact. Facet degenerative changes at L3/L4 through L5/S1. IMPRESSION: DEGENERATIVE DISC AND FACET DISEASE WITH MILD LEVOSCOLIOSIS. 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: DAVID Transcribe Date/Time: Dec 17 2017 5:21P Dictated by : HECTOR CROSS MD This examination was interpreted and the report reviewed and electronically signed by: HECTOR CROSS MD on Dec 17 2017 5:23PM EST [id number] Observed: 12/17/2017 Status: COMPLETED Source: [address] 12:17 PM [facility] REPOSITORY HNO ID: [id number] Author: Denise Tompkins (Rt) Arturo Buckner Service: (none) Author Type: Net Developer Consultant Type: Progress Notes Filed: 12/17/2017 12:24 PM Note Text: Radiology Service Progress Note PATIENT NAME: Brook Pina DATE OF SERVICE: December 17, 2017 TIME: 12:17 PM PATIENT IDENTITY VERIFICATION COMPLETED USING TWO (2) METHODS: Patient confirmed name verbally and Date of . PATIENT GENDER DATA: Female. status: : No status: NO. PATIENT RELEVANT IMPLANT DATA REVIEWED: Not Applicable RADIOLOGY DEPARTMENT: General X-ray: Exam(s) Completed: Spine X-Ray(s): Lumbar AP / LAT / L5-S1 PERIPHERAL IV DATA: Not applicable SIGNED BY: RT Ubaldo December 17, 2017 12:17 PM SED RATE WESTERGREN Collected: 12/17/2017 Status: F Source: [address] 11:45 AM [facility] [place] REPOSITORY TYPE CODE TESTS RESULT OUT OF REFERENCE UNITS RANGE LAB WSR 0-20 mm/hr Sed Rate Westergren 5 Performed By: #### WSR, CMP, CRP, RF, ANAIFS #### [facility] [address] [place], [place] [address] COMP METABOLIC PANEL Collected: 12/17/2017 Status: F Source: [address] 11:45 AM [facility] REPOSITORY TYPE CODE TESTS RESULT OUT OF REFERENCE UNITS RANGE LAB TP 6.3-8.0 g/dL Protein, Total 7.3 LAB ALB 3.9-4.9 g/dL Albumin 4.5 LAB CA 8.5-10.2 mg/dL Calcium, Total 9.4 LAB TBIL 0.2-1.3 mg/dL Bilirubin, Total 0.2 LAB ALKP 34-123 U/L Alkaline Phosphatase 117 LAB AST 13-35 U/L AST High 58 LAB GLU 74-99 mg/dL Glucose 77 Result Comment: The [place] Diabetes Association (ADA) provides guidance for cutoff values for fasting glucose and random glucose. The ADA defines fasting as no caloric intake for at least 8 hours. Fas ting plasma glucose results between 100 to 125 mg/dL indicate increased risk for diabetes (prediabetes). Fasting plasma glucose results greater than or equal to 126 mg/dL meet the criteria for diagnosis of diabetes. In the absence of unequivocal hyperglycemia, results should be confirmed by repeat testing. In a patient with classic symptoms of hyperglycemia or hyperglycemic crisis, random plasma glucose results greater than or equal to 200 mg/dL meet the criteria for diagnosis of diabetes. Reference: Standards of Medical Care in Diabetes 2016, [place] Diabetes Association. Diabetes Care. 2016.39(Suppl 1). LAB BUN 7-21 mg/dL BUN 9 LAB CRET 0.58-0.96 mg/dL Creatinine 0.71 LAB NA 136-144 mmol/L Sodium 140 LAB K 3.7-5.1 mmol/L Potassium 4.3 LAB CL 97-105 mmol/L Chloride 101 LAB CO2 22-30 mmol/L CO2 23 LAB AGAP 9-18 mmol/L Anion Gap 16 LAB ALT 7-38 U/L ALT High 94 LAB GFRAA eGFR- Amer. >60 LAB GFRNAA . eGFR-All Other Races >60 Result Comment: eGFR (Estimated GFR) Units of measure: mL/min/1.73 meters squared eGFR is derived from the reexpressed MDRD Study equation using the following parameters: serum creatinine, age, gender and race. The creatinine assay has been calibrated to be traceable to IDAR. An eGFR <60 mL/min/1.73m2 for >3 months is consistent with chronic kidney disease. Refer to KDOQI guidelines for clinical interpretation. In patients with unstable renal function, e.g. those with acute kidney injury, the eGFR may not accurately reflect actual GFR. Performed By: #### WSR, CMP, CRP, RF, ANAIFS #### [facility] [address] [place] [address] C-REACTIVE PROTEIN Collected: 12/17/2017 Status: F Source: [address] 11:45 [facility] REPOSITORY TYPE CODE TESTS RESULT OUT OF REFERENCE UNITS RANGE LAB CRP <0.9 mg/dL C-Reactive 0.1 Protein Performed By: #### WSR, CMP, CRP, RF, ANAIFS #### [place] [address] RHEUMATOID FACTOR Collected: 12/17/2017 Status: F Source: [address] 11:45 [facility] REPOSITORY TYPE CODE TESTS RESULT OUT OF REFERENCE UNITS RANGE LAB RF <16 IU/mL High Rheumatoid 28 Factor Performed By: #### WSR, CMP, CRP, RF, ANAIFS #### [place] [address] YANY BY IFA Collected: 12/17/2017 Status: F Source: [address] 11:45 [facility] REPOSITORY TYPE CODE TESTS RESULT OUT OF REFERENCE UNITS RANGE LAB ANASC Negative YANY Negative Result Comment: Normal range : negative at <1:80 serum dilution. Approximately 6% of patients with connective tissue diseases with low positive EIA values are negative by IFA. Recommend follow-up with specific antinuclear antibodies if clinically indicated. LAB STANISLAW Negative Negative YANY Titer Result Comment: Normal range : negative at <1:80 serum dilution. LAB ANAP YANY Not applicable Pattern for negative result. Performed By: #### WSR, CMP, CRP, RF, ANAIFS #### [facility] [address] [place] [address] CNOV Observed: 12/17/2017 Status: COMPLETED Source: [address] 11:00 [facility] REPOSITORY Office Visit (FAMPWS) BROOK PINA ([id number]) 1960 F Date Time Provider Department 12/17/17 11:00 AM KAIDEN MCNAMARA [facility] During your visit today, we recorded the following information about you: Temperature Pulse Respiration Blood pressure 98.2 degrees 66/minute 18/minute 142/86 Weight 66.2 kg Karolina Wallace LPN 12/17/2017 11:43 AM Signed 57 year old female here for INACTIVATED INFLUENZA VACCINE. [id number] Season Patient is identified by name and date of : Yes [] CONTRAINDICATIONS color enhanced section Age less than 6 months? No Allergy to eggs, chicken, chicken feathers, or chicken dander? No Allergy to thimerosal (a preservative) or formaldehyde, gelatin? No History of severe reaction to any vaccine component or a previous dose of influenza vaccination? No History of Guillain-[place] Syndrome within 6 weeks after a previous influenza vaccine? No Patient is not moderately or severely ill? No Current temperature greater or equal to 100.4F? No History of Bone Marrow Transplant prior 6 months or solid organ transplant in the past 3 months ? No History of fainting after a prior injection or medical procedure? No- ? If patient has fainted in the past, the CDC recommends sitting or lying down for 15 minutes after the vaccination. [] VERIFICATION color enhanced section Was the answer Yes for any of the above contraindications? No contraindications present. Acceptable to proceed with vaccine. Patient/guardian agrees the above answers are true to the best of their knowledge? Yes Flu vaccine information sheet given? Yes See immunization activity in [facility] for details of immunizations adminstered today. Patient age: [age] year old For The 3636-1983 Flu Season 6-35 months old: Fluzone 0.25 ml - IM (Preservative Free) 3 years of age: Fluzone 0.5 ml - IM (Preservative Free) 3 years and older: Fluzone 0.5 ml- IM-(with Preservatives) 65+ years old: 2-49 years old Fluzone High-Dose 0.5 ml - IM (Preservative Free) FLUMIST- intranasal REMEMBER: If patient is less than 9 years of age and this is the first vaccine of Influenza to be received in any flu season, they should receive a second dose in one months time. Kaiden Mcnamara APRN.[facility] 12/17/2017 11:43 AM Signed Chief Complaint Patient presents with: Refill Request: Lorazepam refill request Imm/Inj: Flu Vaccine HPI Brook Pina is a 57 year old female who presents here today for Above Complaints. Anxiety/Depression: patient presents to the office today for request for lorazepam refill. Patient has been prescribed Ativan 0.5 mg 1-2 tablets per day. also prescribed Effexor 37.5 mg, 1-2 capsules daily. Unfortunately, the patient failed to show up for her three-month follow-up recently and her lorazepam refill was denied as she was needing a appointment. At this time, she states that she is using usually 1 tablet per day. At times, she will take 2 tablets if she is having a stressful day or having difficulty with falling sleep. She states that the holidays cause some increased anxiety. She states that she has been mainly taking 1 capsule of Effexor. Increasing the dose will cause too much flat effect. States that recently she has been having lower back discomfort, (left greater than right), hands, knee are uncomfortable. No swelling. Taking Aleve will dull the pain. Does have a history of DDD, which was found incidentally on a MRI of the pelvis in 2011. Past medical history, appointments, medications, allergies reviewed. Previous Medical History PAST MEDICAL HISTORY Diagnosis Date - Abdominal pain, epigastric - Arthritis of right hip - Diverticulosis of colon (without mention of hemorrhage) - Dysthymic disorder Depression (non-psychotic) - Internal hemorrhoids without mention of complication Previous Surgical History PAST SURGICAL HISTORY Procedure Laterality Date - BX OF BREAST; INCISIONAL 1988 Bx of breast, incisional - left nipple - CARPAL TUNNEL 09/13/2015, 10/18/2015 right 09/12, left 10/17 - DELIVERY ONLY , low cervical - COLONOSCOP W/ OR W/O [facility] SPEC 08/18/11 repeat 10 years - EGD W/O OR W/BRUSH/WASH 01/30/2013 EGD - LIGATE FALLOPIAN TUBE Tubal ligation - REMOVAL OF TONSILS,<12 Y/O Tonsillectomy - US BX OF BREAST NEEDLE 2007 Right, benign Family History FAMILY HISTORY Problem Relation Age of Onset - Alcohol/Drug Paternal Grandfather - Allergies Mother - Allergies Sister - Cancer Maternal Grandmother - Colon Cancer Maternal Aunt - Diabetes Brother - Alzheimer's Disease Mother - other (depression [Other]) Sister 2 sisters - other (depression [Other]) Mother - Hypertension Sister - Hypertension Sister - Stroke Mother TIA's - Coronary Artery Disease Maternal Grandfather - Aneurysm Father 84 - Arthritis Unknown Maternal side of family Patient Allergies ALLERGIES Allergen Reactions - Seasonal Allergies Other: See Comments headaches Current Medications Current Outpatient Prescriptions on File Prior to Visit: LORazepam (ATIVAN) 0.5 mg tab Take 1 tablet by mouth twice daily as needed for up to 30 days. venlafaxine ER (EFFEXOR XR) 37.5 mg 24 hr capsule Take 1-2 capsules by mouth once daily. MELATONIN ORAL Take by mouth. No current facility-administered medications on file prior to visit. Social History Social History Marital status: Spouse name: Jammie Years of education: Number of children: 2 Social History Main Topics Smoking status: Former Smoker Packs/day: 0.00 Years: 0.00 Smokeless tobacco: Never Used Alcohol use: Yes 36.0 oz/week Comment: Occasionally Drug use: No Sexual activity: Yes Partners with: Male control/protection: Tubal Ligation REVIEW OF SYSTEMS: as above ? Reviewed relevant PMHx, PSHx, Social Hx, current medications and allergies. EXAM: BP 142/86 (BP Site: Left Arm, BP Position: Sitting, BP Cuff Size: Regular Adult) Pulse 66 Temp 36.8 ?C (98.2 ?F) (Left Tympanic) Resp 18 Wt 66.2 kg (146 lb) BMI 27.81 kg/m? General Appearance: Well appearing, alert, in no acute distress, well-hydrated, well nourished.. Head: Normocephalic, no masses, lesions, tenderness or abnormalities. Eyes: Anicteric sclera. Pupils are equally round and reactive to light. Extraocular movements are intact. . Ears: External ears normal, canals clear. Nose/Sinuses: Nares normal, septum midline, mucosa normal, no drainage or sinus tenderness. Oropharynx: Lips, mucosa, and tongue normal, teeth and gums normal, oropharynx normal. Back: mild to moderate left and right paraspinal tenderness. Lungs: lungs clear to auscultation. No wheezing, rhonchi, rales. Heart: RRR without murmur, gallop, or rubs. No ectopy. Musculoskeletal: DIPJ of both hands are slightly enlarged, no joint line tenderness, no swelling. Health Maintenance List HEPATITIS C SCREENING due on 2005 DTAP,TDAP,TD(2 - Tdap) due on 06/05/2013 LIPID SCREEN due on 07/16/2017 INFLUENZA(1) due on 10/06/2017 MAMMOGRAM due on 05/23/2018 DIABETES SCREEN due on 04/07/2020 COLORECTAL CANCER SCREENING,SEE MODIFIER due on 08/17/2021 PAP EVERY 5 YEARS due on 05/23/2022 HPV EVERY 5 YEARS due on 05/23/2022 Data reviewed Component Latest Ref Rng AND Units 01/10/2017 04/07/2017 05/23/2017 Cannabinoid Quant, Urine <16 ng/mL <16 Benzoylecognine Quant, Urine <24 ng/mL <24 6-Acetylmorphine Quant, Urine <5 ng/mL <5 Amphetamine Quant, Urine <5 ng/mL <5 Methamphetamine Quant, Urine <8 ng/mL <8 Buprenorphine Quant, Urine <20 ng/mL <20 Norbuprenorphine Quant, Urine <20 ng/mL <20 Methadone Quant, Urine <16 ng/mL <16 EDDP Quant, Urine <6 ng/mL <6 Tramadol Quant, Urine <25 ng/mL <25 Desmethyltramadol Quant, Urine <20 ng/mL <20 Fentanyl Quant, Urine <6 ng/mL <6 Norfentanyl Quant, Urine <6 ng/mL <6 Codeine Quant, Urine <11 ng/mL <11 Morphine Quant, Urine <10 ng/mL <10 Dihydrocodeine Quant, Urine <5 ng/mL <5 Hydrocodone Quant, Urine <8 ng/mL <8 Oxycodone Quant, Urine <5 ng/mL <5 Hydromorphone Quant, Urine <5 ng/mL <5 Oxymorphone Quant, Urine <5 ng/mL <5 Creatinine,Ur Pain Powell >19 mg/dL >50 Urine pH, Pain Powell 4 - 10 4-10 Specific [place],Ur Pain Powell 1.005 - 1.020 1.005-1.020 Oxidants,Ur Negative Negative Specimen Quality, Ur Pain Powell Specimen quality results within acceptable limits. Note,Ur Pain Powell This test is for Medical use only. Protein, Total 6.3 - 8.0 g/dL 7.1 Albumin 3.9 - 4.9 g/dL 4.5 Calcium 8.5 - 10.2 mg/dL 9.0 Bilirubin, Total 0.2 - 1.3 mg/dL 0.4 Alkaline Phosphatase 32 - 117 U/L 59 AST 13 - 35 U/L 21 Glucose 74 - 99 mg/dL 87 BUN 7 - 21 mg/dL 12 Creatinine 0.58 - 0.96 mg/dL 0.75 Sodium 136 - 144 mmol/L 141 Potassium 3.7 - 5.1 mmol/L 4.3 Chloride 97 - 105 mmol/L 101 CO2 22 - 30 mmol/L 25 Anion Gap 9 - 18 mmol/L 15 ALT 7 - 38 U/L 20 eGFR- >60 eGFR-All Other Races . >60 7-aminoclonazepam, Urine <40 ng/mL <40 Alpha-hydroxytriazolam, Urine <40 ng/mL <40 Oxazepam, Urine <40 ng/mL <40 Alpha-hydroxyalprazolam, Urine <60 ng/mL <60 Lorazepam, Urine <40 ng/mL <40 Nordiazepam, Urine <40 ng/mL <40 Temazepam, Urine <40 ng/mL <40 Creatinine, Ur Benzo >19 mg/dL >50 pH, Ur Benzo 4 - 10 4-10 Specific [place], Ur Benzo 1.005 - 1.020 1.005-1.020 Oxidants, Ur Benzo Negative Negative Specimen Quality, Ur Specimen quality results within acceptable limits. Benzo Confirm, Note This test is for Medical use only. Phencyclidine Negative Negative Benzodiazepines Urine Negative Negative Cocaine Urine Negative Negative Amphetamines Negative Negative Cannabinoids, Urine Negative Negative Opiates Negative Negative Barbiturates Negative Negative Ethanol, Urine <11 mg/dL <11 Oxycodone, Urine Negative Negative TSH 0.400 - 5.500 uU/mL 3.030 CA 125 <39 U/mL 12 ASSESSMENT/PLAN: 1. Anxiety - ICD9: 300.00, ICD10: F41.9 (primary diagnosis) - stable continue current use of lorazepam. - LORAZEPAM 0.5 MG TABLET PDMP website checked and validated. All prescriptions have been APPROPRIATELY filled. No suspicious activity was identified. 12/17/2017 by Kaiden Mcnamara APRN.RACK MAKER 2. Depression, unspecified depression type - ICD9: 311, ICD10: F32.9 - stable continue current medication. - VENLAFAXINE ER 37.5 MG CAPSULE,EXTENDED RELEASE 24 HR 3. Need for vaccination - ICD9: V05.9, ICD10: Z23 - INFLUENZA VACCINE QUADRIVALENT AGE 3 YRS PLUS + IM 4. DDD (degenerative disc disease), lumbar - ICD9: 722.52, ICD10: M51.36 - XR LUMBAR GENERAL 3V AP/LAT/L5-S1 - MELOXICAM 15 MG TABLET 5. Multiple joint complaints - ICD9: 719.99, ICD10: M25.9 - osteo-versus rheumatoid arthritis. Get workup, see rheumatology. - RHEUMATOID FACTOR BL - COMP METABOLIC PANEL - SED RATE WESTERGREN - C-REACTIVE PROTEIN (CRP) - YANY BY IFA SCREEN - MELOXICAM 15 MG TABLET - CONSULT TO RHEUM/IMMUN DISEASE labs and imaging today, follow-up in 3 months. Sooner if needed. Kaiden Mcnamara APRN.RACK MAKER Referring Provider: HEATHER SIDDIQUI [[id number]] Allergies As of Date: 12/17/2017 Noted Allergy Reaction SEASONAL ALLERGIES 07/11/2011 14 - Other: See Comments Comments: headaches Date Reviewed: 12/17/2017 Reviewed by: Karolina Wallace LPN - Fully Assessed Reason for Visit: Refill Request [94] Cmt: Lorazepam refill request Imm/Inj [58] Cmt: Flu Vaccine Reason For Visit History Recorded Primary Visit Diagnosis:Anxiety [F41.9] Other Visit Diagnoses:Depression, unspecified depression type [F32.9] Need for vaccination [Z23] DDD (degenerative disc disease), lumbar [M51.36] Multiple joint complaints [M25.9] Order(s):INFLUENZA VACCINE QUADRIVALENT AGE 3 YRS PLUS + IM [[id number]] Order #: [id number] LORazepam (ATIVAN) 0.5 mg tabTake 1 tablet by mouth twice daily as needed for up to 30 days.Disp: 60 tabletRfl: 2 venlafaxine ER (EFFEXOR XR) 37.5 mg 24 hr capsuleTake 1-2 capsules by mouth once daily.Disp: 60 capsuleRfl: 5 XR LUMBAR GENERAL 3V AP/LAT/L5-S1 [[id number]] Order #: [id number] FUTURE RHEUMATOID FACTOR BL [SQRF] Order #: [id number] FUTURE COMP METABOLIC PANEL [SQCMP] Order #: [id number] FUTURE SED RATE WESTERGREN [SQWSR] Order #: [id number] FUTURE C-REACTIVE PROTEIN (CRP) [SQCRP] Order #: [id number] FUTURE YANY BY IFA SCREEN [SQANAIFS] Order #: [id number] FUTURE meloxicam (MOBIC) 15 mg tabletTake 1 tablet by mouth once daily. With food.Disp: 30 tabletRfl: 2 CONSULT TO RHEUM/IMMUN DISEASE [9039] Order #: [id number]: 1 Prescriptions as of 12/17/2017 Sig: LORAZEPAM 0.5 MG TABLET Take 1 tablet by mouth twice * VENLAFAXINE ER 37.5 MG CAPSUL* Take 1-2 capsules by mouth on* MELOXICAM 15 MG TABLET Take 1 tablet by mouth once d* MELATONIN ORAL Take by mouth. Problem List As Of Date 12/17/2017 Noted Resolved BUNION [M21.619] INVALID FOR* Depressive Disorder, not Elsewhere Classified [*INVALID FOR* Family history of abdominal aortic aneurysm [Z8*INVALID FOR* Recurrent cold sores [B00.1] INVALID FOR* PMDD (premenstrual dysphoric disorder) [F32.81] INVALID FOR* Uterine fibroid [D25.9] INVALID FOR* Pelvic pain in female [R10.2] INVALID FOR* Epigastric pain [R10.13] INVALID FOR* Nausea [R11.0] INVALID FOR* Anxiety [F41.9] INVALID FOR* Prescriptions ordered this encounter Disp Refills Start End LORAZEPAM 0.5 MG TABLET 60 t* 2 12/17/2017 01/16/2018 Class: Print RX Route: ORAL Sig: Take 1 tablet by mouth twice daily as needed for up to 30 days. VENLAFAXINE ER 37.5 MG CAPSULE,EXTEN* 60 c* 5 12/17/2017 Route: ORAL Sig: Take 1-2 capsules by mouth once daily. MELOXICAM 15 MG TABLET 30 t* 2 12/17/2017 Route: ORAL Sig: Take 1 tablet by mouth once daily. With food. Medications Discontinued During This Encounter LORazepam (ATIVAN) 0.5 mg tab 60 t* 0 10/29/2017 12/17/2017 Class: Call Rx Route: ORAL Sig: Take 1 tablet by mouth twice daily as needed for up to 30 days. Disc: Reason for discontinue is not on file. venlafaxine ER (EFFEXOR XR) 37.5 mg * 60 c* 5 04/02/2017 12/17/2017 Route: ORAL Sig: Take 1-2 capsules by mouth once daily. Disc: Reason for discontinue is not on file. Disposition: Return in about 3 months (around 03/19/2018) for Anxiety, Depression f/u. Follow-up and Disposition History Recorded Encounter Status:Closed by KAIDEN MCNAMARA CNP on 12/17/17 PROGRESS Observed: 12/17/2017 Status: COMPLETED Source: [address] 10:59 AM [facility] [place] REPOSITORY O ID: [id number] Author: Kaiden Mcnamara Service: (none) Author Type: Nurse Practitioner Type: Progress Notes Filed: 12/17/2017 11:43 AM Note Text: Chief Complaint Patient presents with: Refill Request: Lorazepam refill request Imm/Inj: Flu Vaccine HPI Brook Pina is a 57 year old female who presents here today for Above Complaints. Anxiety/Depression: patient presents to the office today for request for lorazepam refill. Patient has been prescribed Ativan 0.5 mg 1-2 tablets per day. also prescribed Effexor 37.5 mg, 1-2 capsules daily. Unfortunately, the patient failed to show up for her three- month follow-up recently and her lorazepam refill was denied as she was needing a appointment. At this time, she states that she is using usually 1 tablet per day. At times, she will take 2 tablets if she is having a stressful day or having difficulty with falling sleep. She states that the holidays cause some increased anxiety. She states that she has been mainly taking 1 capsule of Effexor. Increasing the dose will cause too much flat effect. States that recently she has been having lower back discomfort, (left greater than right), hands, knee are uncomfortable. No swelling. Taking Aleve will dull the pain. Does have a history of DDD, which was found incidentally on a MRI of the pelvis in 2011. Past medical history, appointments, medications, allergies reviewed. Previous Medical History PAST MEDICAL HISTORY Diagnosis Date - Abdominal pain, epigastric - Arthritis of right hip - Diverticulosis of colon (without mention of hemorrhage) - Dysthymic disorder Depression (non-psychotic) - Internal hemorrhoids without mention of complication Previous Surgical History PAST SURGICAL HISTORY Procedure Laterality Date - BX OF BREAST; INCISIONAL 1988 Bx of breast, incisional - left nipple - CARPAL TUNNEL 09/13/2015, 10/18/2015 right 09/12, left 10/17 - DELIVERY ONLY , low cervical - COLONOSCOP W/ OR W/O [facility] SPEC 08/18/11 repeat 10 years - EGD W/O OR W/BRUSH/WASH 01/30/2013 EGD - LIGATE FALLOPIAN TUBE Tubal ligation - REMOVAL OF TONSILS,<12 Y/O Tonsillectomy - US BX OF BREAST NEEDLE 2007 Right, benign Family History FAMILY HISTORY Problem Relation Age of Onset - Alcohol/Drug Paternal Grandfather - Allergies Mother - Allergies Sister - Cancer Maternal Grandmother - Colon Cancer Maternal Aunt - Diabetes Brother - Alzheimer's Disease Mother - other (depression [Other]) Sister 2 sisters - other (depression [Other]) Mother - Hypertension Sister - Hypertension Sister - Stroke Mother TIA's - Coronary Artery Disease Maternal Grandfather - Aneurysm Father 84 - Arthritis Unknown Maternal side of family Patient Allergies ALLERGIES Allergen Reactions - Seasonal Allergies Other: See Comments headaches Current Medications Current Outpatient Prescriptions on File Prior to Visit: LORazepam (ATIVAN) 0.5 mg tab Take 1 tablet by mouth twice daily as needed for up to 30 days. venlafaxine ER (EFFEXOR XR) 37.5 mg 24 hr capsule Take 1-2 capsules by mouth once daily. MELATONIN ORAL Take by mouth. No current facility-administered medications on file prior to visit. Social History Social History Marital status: Spouse name: Jammie Years of education: Number of children: 2 Social History Main Topics Smoking status: Former Smoker Packs/day: 0.00 Years: 0.00 Smokeless tobacco: Never Used Alcohol use: Yes 36.0 oz/week Comment: Occasionally Drug use: No Sexual activity: Yes Partners with: Male control/protection: Tubal Ligation REVIEW OF SYSTEMS: as above ? Reviewed relevant PMHx, PSHx, Social Hx, current medications and allergies. EXAM: BP 142/86 (BP Site: Left Arm, BP Position: Sitting, BP Cuff Size: Regular Adult) Pulse 66 Temp 36.8 ?C (98.2 ?F) (Left Tympanic) Resp 18 Wt 66.2 kg (146 lb) BMI 27.81 kg/m? General Appearance: Well appearing, alert, in no acute distress, well-hydrated, well nourished.. Head: Normocephalic, no masses, lesions, tenderness or abnormalities. Eyes: Anicteric sclera. Pupils are equally round and reactive to light. Extraocular movements are intact. . Ears: External ears normal, canals clear. Nose/Sinuses: Nares normal, septum midline, mucosa normal, no drainage or sinus tenderness. Oropharynx: Lips, mucosa, and tongue normal, teeth and gums normal, oropharynx normal. Back: mild to moderate left and right paraspinal tenderness. Lungs: lungs clear to auscultation. No wheezing, rhonchi, rales. Heart: RRR without murmur, gallop, or rubs. No ectopy. Musculoskeletal: DIPJ of both hands are slightly enlarged, no joint line tenderness, no swelling. Health Maintenance List HEPATITIS C SCREENING due on 2005 DTAP,TDAP,TD(2 - Tdap) due on 06/05/2013 LIPID SCREEN due on 07/16/2017 INFLUENZA(1) due on 10/06/2017 MAMMOGRAM due on 05/23/2018 DIABETES SCREEN due on 04/07/2020 COLORECTAL CANCER SCREENING,SEE MODIFIER due on 08/17/2021 PAP EVERY 5 YEARS due on 05/23/2022 HPV EVERY 5 YEARS due on 05/23/2022 Data reviewed Component Latest Ref Rng AND Units 01/10/2017 04/07/2017 05/23/2017 Cannabinoid Quant, Urine <16 ng/mL <16 Benzoylecognine Quant, Urine <24 ng/mL <24 6-Acetylmorphine Quant, Urine <5 ng/mL <5 Amphetamine Quant, Urine <5 ng/mL <5 Methamphetamine Quant, Urine <8 ng/mL <8 Buprenorphine Quant, Urine <20 ng/mL <20 Norbuprenorphine Quant, Urine <20 ng/mL <20 Methadone Quant, Urine <16 ng/mL <16 EDDP Quant, Urine <6 ng/mL <6 Tramadol Quant, Urine <25 ng/mL <25 Desmethyltramadol Quant, Urine <20 ng/mL <20 Fentanyl Quant, Urine <6 ng/mL <6 Norfentanyl Quant, Urine <6 ng/mL <6 Codeine Quant, Urine <11 ng/mL <11 Morphine Quant, Urine <10 ng/mL <10 Dihydrocodeine Quant, Urine <5 ng/mL <5 Hydrocodone Quant, Urine <8 ng/mL <8 Oxycodone Quant, Urine <5 ng/mL <5 Hydromorphone Quant, Urine <5 ng/mL <5 Oxymorphone Quant, Urine <5 ng/mL <5 Creatinine,Ur Pain [place] >19 mg/dL >50 Urine pH, Pain [place] 4 - 10 4-10 Specific [place],Ur Pain Powell 1.005 - 1.020 1.005-1.020 Oxidants,Ur Negative Negative Specimen Quality, Ur Pain [place] Specimen quality results within acceptable limits. Note,Ur Pain Powell This test is for Medical use only. Protein, Total 6.3 - 8.0 g/dL 7.1 Albumin 3.9 - 4.9 g/dL 4.5 Calcium 8.5 - 10.2 mg/dL 9.0 Bilirubin, Total 0.2 - 1.3 mg/dL 0.4 Alkaline Phosphatase 32 - 117 U/L 59 AST 13 - 35 U/L 21 Glucose 74 - 99 mg/dL 87 BUN 7 - 21 mg/dL 12 Creatinine 0.58 - 0.96 mg/dL 0.75 Sodium 136 - 144 mmol/L 141 Potassium 3.7 - 5.1 mmol/L 4.3 Chloride 97 - 105 mmol/L 101 CO2 22 - 30 mmol/L 25 Anion Gap 9 - 18 mmol/L 15 ALT 7 - 38 U/L 20 eGFR- >60 eGFR-All Other Races . >60 7-aminoclonazepam, Urine <40 ng/mL <40 Alpha-hydroxytriazolam, Urine <40 ng/mL <40 Oxazepam, Urine <40 ng/mL <40 Alpha-hydroxyalprazolam, Urine <60 ng/mL <60 Lorazepam, Urine <40 ng/mL <40 Nordiazepam, Urine <40 ng/mL <40 Temazepam, Urine <40 ng/mL <40 Creatinine, Ur Benzo >19 mg/dL >50 pH, Ur Benzo 4 - 10 4-10 Specific [place], Ur Benzo 1.005 - 1.020 1.005-1.020 Oxidants, Ur Benzo Negative Negative Specimen Quality, Ur Specimen quality results within acceptable limits. Benzo Confirm, Note This test is for Medical use only. Phencyclidine Negative Negative Benzodiazepines Urine Negative Negative Cocaine Urine Negative Negative Amphetamines Negative Negative Cannabinoids, Urine Negative Negative Opiates Negative Negative Barbiturates Negative Negative Ethanol, Urine <11 mg/dL <11 Oxycodone, Urine Negative Negative TSH 0.400 - 5.500 uU/mL 3.030 CA 125 <39 U/mL 12 ASSESSMENT/PLAN: 1. Anxiety - ICD9: 300.00, ICD10: F41.9 (primary diagnosis) - stable continue current use of lorazepam. - LORAZEPAM 0.5 MG TABLET PDMP website checked and validated. All prescriptions have been APPROPRIATELY filled. No suspicious activity was identified. 12/17/2017 by Kaiden Mcnamara APRN.RACK MAKER 2. Depression, unspecified depression type - ICD9: 311, ICD10: F32.9 - stable continue current medication. - VENLAFAXINE ER 37.5 MG CAPSULE,EXTENDED RELEASE 24 HR 3. Need for vaccination - ICD9: V05.9, ICD10: Z23 - INFLUENZA VACCINE QUADRIVALENT AGE 3 YRS PLUS + IM 4. DDD (degenerative disc disease), lumbar - ICD9: 722.52, ICD10: M51.36 - XR LUMBAR GENERAL 3V AP/LAT/L5-S1 - MELOXICAM 15 MG TABLET 5. Multiple joint complaints - ICD9: 719.99, ICD10: M25.9 - osteo-versus rheumatoid arthritis. Get workup, see rheumatology. - RHEUMATOID FACTOR BL - COMP METABOLIC PANEL - SED RATE WESTERGREN - C-REACTIVE PROTEIN (CRP) - YANY BY IFA SCREEN - MELOXICAM 15 MG TABLET - CONSULT TO RHEUM/IMMUN DISEASE labs and imaging today, follow-up in 3 months. Sooner if needed. Kaiden Mcnamara APRN.RACK MAKER PROGRESS Observed: 12/17/2017 Status: COMPLETED Source: [address] 10:58 AM [facility] [place] REPOSITORY O ID: [id number] Author: Karolina Wallace LPN Service: (none) Author Type: (none) Type: Progress Notes Filed: 12/17/2017 11:43 AM Note Text: 57 year old female here for INACTIVATED INFLUENZA VACCINE. 9847-8063 Season Patient is identified by name and date of : Yes [] CONTRAINDICATIONS color enhanced section Age less than 6 months? No Allergy to eggs, chicken, chicken feathers, or chicken dander? No Allergy to thimerosal (a preservative) or formaldehyde, gelatin? No History of severe reaction to any vaccine component or a previous dose of influenza vaccination? No History of Guillain-[place] Syndrome within 6 weeks after a previous influenza vaccine? No Patient is not moderately or severely ill? No Current temperature greater or equal to 100.4F? No History of Bone Marrow Transplant prior 6 months or solid organ transplant in the past 3 months ? No History of fainting after a prior injection or medical procedure? No- ? If patient has fainted in the past, the CDC recommends sitting or lying down for 15 minutes after the vaccination. [] VERIFICATION color enhanced section Was the answer Yes for any of the above contraindications? No contraindications present. Acceptable to proceed with vaccine. Patient/guardian agrees the above answers are true to the best of their knowledge? Yes Flu vaccine information sheet given? Yes See immunization activity in [facility] for details of immunizations adminstered today. Patient age: [age] year old For The 1593-1264 Flu Season 6-35 months old: Fluzone 0.25 ml - IM (Preservative Free) 3 years of age: Fluzone 0.5 ml - IM (Preservative Free) 3 years and older: Fluzone 0.5 ml- IM-(with Preservatives) 65+ years old: 2-49 years old Fluzone High-Dose 0.5 ml - IM (Preservative Free) FLUMIST- intranasal REMEMBER: If patient is less than 9 years of age and this is the first vaccine of Influenza to be received in any flu season, they should receive a second dose in one months time. PROGRESS Observed: 07/04/2017 Status: COMPLETED Source: [address] 3:35 PM [facility] RE[facility] HNO ID: [id number] Author: Scooter Bolton Service: (none) Author Type: Physician Type: Progress Notes Filed: 07/04/2017 9:20 PM Note Text: ? Scooter Bolton DPM Department of Podiatry [address] [facility] [address] Dept: [phone] Dept 07/04/2017 Follow Up Podiatric Office Visit: HPI: Brook Pina is a 57 year old female. Patient presents for follow up for Plantar plate injury. Patient also presents for follow-up fracture. Patient reports some 1/10 tenderness pain if toe bent wrong. Feels better than last visit. Has new xrays of right foot. Physical Exam: Constitutional: Pt is a well developed 57 year old female who is alert, oriented and cooperative Eyes: Following during examination. No redness or drainage. Respiratory: RR normal and nonlabored. Even breathing. No evidence of distress or shortness of breath. Psychology: Patient is engaged during conversation. Normal affect and mood. Does not appear depressed or anxious during encounter. Vascular: Dorsalis pedis and posterior tibial pulses palpable right foot caapillary Fill time < 5 seconds to digits 1-5 b/l Skin temperature warm to warm proximal to distal b/l Hair growth present to digits Neurological: intact light touch/epicritic sensation Dermatological: Skin appears well hydrated and supple. good color, texture, turgor. Callosities abspent. .Open lesions absent. Wound: Not present. Musculoskeletal/Orthopaedic: Patient has no pain to palpation of right 5th toe Foot type is neutral structurally AJ ROM is full with knee extended and flexed 1st MPJ is full when loaded and no pain or crepitus are noted with ROM. MTJ, STJ are full and free of pain and crepitus. +5/5 muscle strength dorsiflexion, plantarflexion, inversion, eversion right Radiographs: xrays of right foot reviewed. There is healing fracture of right 5th toe ASSESSMENT: (S92.501A) Closed fracture of phalanx of right fifth toe, initial encounter (primary encounter diagnosis) (S89.92XA) Plantar plate injury, left, initial encounter PLAN: Patient was examined and informed of current findings. Patient has no pain and since last week, has transitioned into regular shoes at her own discretion. Discussed xrays. xrays show healing fracture. Discussed repeat xrays in 3 weeks. She feels like she is improving and would otherwise treat without xrays as she is asymptomatic. She understands and is agreeable to returning to surgical shoe should pain return. Patient understands risk of slow healing if she is active. Discussed plantar plate tear of left 2nd toe. She has no pain. She understands risk of toe deformity as a result. She was informed of surgical correction but is not interested at this time. If pain returns, she may consider f/u prn. Scooter Bolton DPM XR FOOT 3V AP/LAT/OBL Observed: 07/04/2017 Status: F Source: [address] 3:34 PM [facility] REPOSITORY * * *Final Report* * * DATE OF EXAM: Jul 04 2017 3:34PM [id number] [id number] - XR FOOT 3V AP/LAT/OBL RT / PROCEDURE REASON: Pain in right foot * * * * Physician Interpretation * * * * HISTORY: 57-YEAR-OLD FEMALE WITH Pain in right foot . Fracture follow up to the right small toe x 4 weeks. TECHNIQUE: XR FOOT 3V AP/LAT/OBL RT Laterality: RIGHT Number of different views (projections): 3 COMPARISON: 05/29/2017 RESULT: Increased resorption at the fracture of the proximal phalanx of the fifth digit with callus formation. Bones and joints of the foot otherwise unchanged. IMPRESSION: EARLY CHANGES OF HEALING OF THE FIFTH PROXIMAL PHALANGEAL FRACTURE. 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: PSCB Transcribe Date/Time: Jul 04 2017 6:41P Dictated by : HECTOR CROSS MD This examination was interpreted and the report reviewed and electronically signed by: HECTOR CROSS MD on Jul 04 2017 6:42PM EST [id number] PROGRESS Observed: 07/04/2017 Status: COMPLETED Source: [address] 3:26 PM [facility] REPOSITORY HNO ID: [id number] Author: Anne Crowe (Rt) Arturo Erwin Service: (none) Author Type: Net Developer Consultant Type: Progress Notes Filed: 07/04/2017 3:34 PM Note Text: Radiology Service Progress Note PATIENT NAME: Brook Pina DATE OF SERVICE: July 04, 2017 TIME: 3:26 PM PATIENT IDENTITY VERIFICATION COMPLETED USING TWO (2) METHODS: Patient confirmed name verbally and Date of . PATIENT GENDER DATA: Female. status: : No status: NO. PATIENT RELEVANT IMPLANT DATA REVIEWED: Not Applicable RADIOLOGY DEPARTMENT: General X-ray: Exam(s) Completed: Lower Extremity X-Ray(s): Foot, Right: PERIPHERAL IV DATA: Not applicable SIGNED BY: RT Caryn July 04, 2017 3:26 PM CNOV Observed: 07/04/2017 Status: COMPLETED Source: [address] 3:25 PM [facility] REPOSITORY Office Visit (PODIWS) YOVANIBROOK Tompkins ([id number]) 1960 F Date Time Provider Department 07/04/17 3:25 PM SCOOTER BOLTON During your visit today, we recorded the following information about you: Scooter Bolton DPM 07/04/2017 9:20 PM Signed ? Scooter Bolton DPM Department of Podiatry [address] [place] [address] Dept: [phone] Dept 07/04/2017 Follow Up Podiatric Office Visit: HPI: Brook Pina is a 57 year old female. Patient presents for follow up for Plantar plate injury. Patient also presents for follow-up fracture. Patient reports some 1/10 tenderness pain if toe bent wrong. Feels better than last visit. Has new xrays of right foot. Physical Exam: Constitutional: Pt is a well developed 57 year old female who is alert, oriented and cooperative Eyes: Following during examination. No redness or drainage. Respiratory: RR normal and nonlabored. Even breathing. No evidence of distress or shortness of breath. Psychology: Patient is engaged during conversation. Normal affect and mood. Does not appear depressed or anxious during encounter. Vascular: Dorsalis pedis and posterior tibial pulses palpable right foot caapillary Fill time < 5 seconds to digits 1-5 b/l Skin temperature warm to warm proximal to distal b/l Hair growth present to digits Neurological: intact light touch/epicritic sensation Dermatological: Skin appears well hydrated and supple. good color, texture, turgor. Callosities abspent. .Open lesions absent. Wound: Not present. Musculoskeletal/Orthopaedic: Patient has no pain to palpation of right 5th toe Foot type is neutral structurally AJ ROM is full with knee extended and flexed 1st MPJ is full when loaded and no pain or crepitus are noted with ROM. MTJ, STJ are full and free of pain and crepitus. +5/5 muscle strength dorsiflexion, plantarflexion, inversion, eversion right Radiographs: xrays of right foot reviewed. There is healing fracture of right 5th toe ASSESSMENT: (S92.501A) Closed fracture of phalanx of right fifth toe, initial encounter (primary encounter diagnosis) (S89.92XA) Plantar plate injury, left, initial encounter PLAN: Patient was examined and informed of current findings. Patient has no pain and since last week, has transitioned into regular shoes at her own discretion. Discussed xrays. xrays show healing fracture. Discussed repeat xrays in 3 weeks. She feels like she is improving and would otherwise treat without xrays as she is asymptomatic. She understands and is agreeable to returning to surgical shoe should pain return. Patient understands risk of slow healing if she is active. Discussed plantar plate tear of left 2nd toe. She has no pain. She understands risk of toe deformity as a result. She was informed of surgical correction but is not interested at this time. If pain returns, she may consider f/u prn. Scooter Bolton DPM Referring Provider: SELF [[id number]] Allergies As of Date: 07/04/2017 Noted Allergy Reaction SEASONAL ALLERGIES 07/11/2011 14 - Other: See Comments Comments: headaches Date Reviewed: 07/04/2017 Reviewed by: Jeffrey Hayes Ma - Fully Assessed Reason for Visit: Follow Up [171] Primary Visit Diagnosis:Closed fracture of phalanx of right fifth toe, initial encounter [S92.501A] Other Visit Diagnosis:Plantar plate injury, left, initial encounter [S89.92XA] Prescriptions as of 07/04/2017 Sig: LORAZEPAM 0.5 MG TABLET Take 1 tablet by mouth twice * VENLAFAXINE ER 37.5 MG CAPSUL* Take 1-2 capsules by mouth on* MELATONIN ORAL Take by mouth. Problem List As Of Date 07/04/2017 Noted Resolved BUNION [M21.619] INVALID FOR* Depressive Disorder, not Elsewhere Classified [*INVALID FOR* Family history of abdominal aortic aneurysm [Z8*INVALID FOR* Recurrent cold sores [B00.1] INVALID FOR* PMDD (premenstrual dysphoric disorder) [F32.81] INVALID FOR* Uterine fibroid [D25.9] INVALID FOR* Pelvic pain in female [R10.2] INVALID FOR* Epigastric pain [R10.13] INVALID FOR* Nausea [R11.0] INVALID FOR* Anxiety [F41.9] INVALID FOR* Disposition: Return if symptoms worsen or fail to improve. Follow-up and Disposition History Recorded Encounter Status:Closed by SCOOTER BOLTON DPM on 07/04/17 PROGRESS Observed: 07/03/2017 Status: COMPLETED Source: [address] 4:26 PM [facility] REPOSITORY HNO ID: [id number] Author: Heather Siddiqui Service: (none) Author Type: Physician Type: Progress Notes Filed: 07/03/2017 4:45 PM Note Text: Chief Complaint Patient presents with: F/U 3 Month: Anxiety and Depression HPI Brook Pina is a 57 year old female who presents here today for a 3 mo f/u. Plans on spending a week with her grandchildren, ages 16, 10 and 5. Going to [place] for a week. Anxiety/Depression - Feels that she is able to cope better with use of current medication regimen. Denies the thoughts of feeling doesn't cross her mind nearly as much with the increase dose of Effexor. Feels that stress makes symptoms worse. Currently dealing with her son and g/f fighting and possibly him moving back home. Ativan 0.5 mg 1 -2 tabs at bedtime with occasional third through the day if its a bad day and Effexor 37.5 1-2 daily. Congestion - Had a bad cold about a month ago and continues to still have some chest congestion and coughing. Started OTC allergy medication, gave some relief to coughing up sputum. GI - Burping that feels stuck in chest. Had an appointment scheduled with Shruthi and missed her appointment. Notes increased pressure and discomfort after eating and dysphagia. Past medical history, appointments, medications, allergies reviewed. Previous Medical History PAST MEDICAL HISTORY Diagnosis Date - Abdominal pain, epigastric - Arthritis of right hip - Diverticulosis of colon (without mention of hemorrhage) - Dysthymic disorder Depression (non-psychotic) - Internal hemorrhoids without mention of complication Previous Surgical History PAST SURGICAL HISTORY Procedure Laterality Date - BX OF BREAST; INCISIONAL 1987 Bx of breast, incisional - left nipple - CARPAL TUNNEL 09/13/2015, 10/18/2015 right 09/12, left 10/17 - DELIVERY ONLY , low cervical - COLONOSCOP W/ OR W/O [facility] SPEC 08/18/11 repeat 10 years - EGD W/O OR W/BRUSH/WASH 01/30/2013 EGD - LIGATE FALLOPIAN TUBE Tubal ligation - REMOVAL OF TONSILS,<12 Y/O Tonsillectomy - US BX OF BREAST NEEDLE 2007 Right, benign Family History FAMILY HISTORY Problem Relation Age of Onset - Alcohol/Drug Paternal Grandfather - Allergies Mother - Allergies Sister - Cancer Maternal Grandmother - Colon Cancer Maternal Aunt - Diabetes Brother - Alzheimer's Disease Mother - depression [Other] [OTHER] Sister 2 sisters - depression [Other] [OTHER] Mother - Hypertension Sister - Hypertension Sister - Stroke Mother TIA's - Coronary Artery Disease Maternal Grandfather - Aneurysm Father 84 - Arthritis Maternal side of family Patient Allergies ALLERGIES Allergen Reactions - Seasonal Allergies Other: See Comments headaches Current Medications Current Outpatient Prescriptions on File Prior to Visit: LORazepam (ATIVAN) 0.5 mg tab Take 1-2 tablets by mouth twice daily as needed for up to 90 days. venlafaxine ER (EFFEXOR XR) 37.5 mg 24 hr capsule Take 1-2 capsules by mouth once daily. MELATONIN ORAL Take by mouth. No current facility-administered medications on file prior to visit. Social History Social History Marital status: Spouse name: Jammie Years of education: Number of children: 2 Social History Main Topics Smoking status: Former Smoker Packs/day: 0.00 Years: 0.00 Smokeless tobacco: Never Used Alcohol use: Yes 36.0 oz/week Comment: Occasionally Drug use: No Sexual activity: Yes Partners with: Male control/protection: Tubal Ligation EXAM: BP 126/84 (BP Site: Left Arm, BP Position: Sitting, BP Cuff Size: Regular Adult) Pulse 80 Resp 16 Wt 66.8 kg (147 lb 3.2 oz) BMI 28.04 kg/m? General Appearance: Well appearing, alert, in no acute distress, well-hydrated, well nourished.. Lungs: Lungs clear to auscultation. No wheezing, rhonchi, rales. Heart: RRR without murmur, gallop, or rubs. No ectopy. Health Maintenance List HEPATITIS C SCREENING due on 2005 DTAP,TDAP,TD(2 - Tdap) due on 06/05/2013 LIPID SCREEN due on 07/16/2017 MAMMOGRAM due on 05/23/2018 DIABETES SCREEN due on 04/07/2020 COLORECTAL CANCER SCREENING,SEE MODIFIER due on 08/17/2021 PAP EVERY 5 YEARS due on 05/23/2022 HPV EVERY 5 YEARS due on 05/23/2022 INFLUENZA Completed Data reviewed OARRS website checked and validated. All prescriptions have been APPROPRIATELY filled. No suspicious activity was identified.- 07/03/2017 by Heather Siddiqui MD ASSESSMENT/PLAN: 1. Anxiety - ICD9: 300.00, ICD10: F41.9 (primary diagnosis) - Continue current medication regimen. - LORAZEPAM 0.5 MG TABLET 2. Depression, unspecified depression type - ICD9: 311, ICD10: F32.9 - Continue current medication regimen. 3. Epigastric pain - ICD9: 789.06, ICD10: R10.13 - Setup appt with GI 4. Dysphagia, unspecified type - ICD9: 787.20, ICD10: R13.10 - Setup GI appt 3 mo f/u Heather Siddiqui MD The documentation for this note was completed by Deirdre Hudson Ma acting as scribe for Heather Siddiqui MD. July 03, 2017 4:26 PM. CNOV Observed: 07/03/2017 Status: COMPLETED Source: [address] 4:20 PM [facility] REPOSITORY Office Visit (FAMPWS) BROOK PINA ([id number]) 1960 F Date Time Provider Department 07/03/17 4:20 PM [facility] During your visit today, we recorded the following information about you: Pulse Respiration Blood pressure Weight 80/minute 16/minute 126/84 66.8 kg Heather Siddiqui MD 07/03/2017 4:45 PM Signed Chief Complaint Patient presents with: F/U 3 Month: Anxiety and Depression HPI Brook Parkeres is a 57 year old female who presents here today for a 3 mo f/u. Plans on spending a week with her grandchildren, ages 16, 10 and 5. Going to [place] for a week. Anxiety/Depression - Feels that she is able to cope better with use of current medication regimen. Denies the thoughts of feeling doesn't cross her mind nearly as much with the increase dose of Effexor. Feels that stress makes symptoms worse. Currently dealing with her son and g/f fighting and possibly him moving back home. Ativan 0.5 mg 1 -2 tabs at bedtime with occasional third through the day if its a bad day and Effexor 37.5 1-2 daily. Congestion - Had a bad cold about a month ago and continues to still have some chest congestion and coughing. Started OTC allergy medication, gave some relief to coughing up sputum. GI - Burping that feels stuck in chest. Had an appointment scheduled with Shruthi and missed her appointment. Notes increased pressure and discomfort after eating and dysphagia. Past medical history, appointments, medications, allergies reviewed. Previous Medical History PAST MEDICAL HISTORY Diagnosis Date - Abdominal pain, epigastric - Arthritis of right hip - Diverticulosis of colon (without mention of hemorrhage) - Dysthymic disorder Depression (non-psychotic) - Internal hemorrhoids without mention of complication Previous Surgical History PAST SURGICAL HISTORY Procedure Laterality Date - BX OF BREAST; INCISIONAL 1987 Bx of breast, incisional - left nipple - CARPAL TUNNEL 09/13/2015, 10/18/2015 right 09/12, left 10/17 - DELIVERY ONLY , low cervical - COLONOSCOP W/ OR W/O [facility] SPEC 08/18/11 repeat 10 years - EGD W/O OR W/BRUSH/WASH 01/30/2013 EGD - LIGATE FALLOPIAN TUBE Tubal ligation - REMOVAL OF TONSILS,<12 Y/O Tonsillectomy - US BX OF BREAST NEEDLE 2007 Right, benign Family History FAMILY HISTORY Problem Relation Age of Onset - Alcohol/Drug Paternal Grandfather - Allergies Mother - Allergies Sister - Cancer Maternal Grandmother - Colon Cancer Maternal Aunt - Diabetes Brother - Alzheimer's Disease Mother - depression [Other] [OTHER] Sister 2 sisters - depression [Other] [OTHER] Mother - Hypertension Sister - Hypertension Sister - Stroke Mother TIA's - Coronary Artery Disease Maternal Grandfather - Aneurysm Father 84 - Arthritis Maternal side of family Patient Allergies ALLERGIES Allergen Reactions - Seasonal Allergies Other: See Comments headaches Current Medications Current Outpatient Prescriptions on File Prior to Visit: LORazepam (ATIVAN) 0.5 mg tab Take 1-2 tablets by mouth twice daily as needed for up to 90 days. venlafaxine ER (EFFEXOR XR) 37.5 mg 24 hr capsule Take 1-2 capsules by mouth once daily. MELATONIN ORAL Take by mouth. No current facility-administered medications on file prior to visit. Social History Social History Marital status: Spouse name: Jammie Years of education: Number of children: 2 Social History Main Topics Smoking status: Former Smoker Packs/day: 0.00 Years: 0.00 Smokeless tobacco: Never Used Alcohol use: Yes 36.0 oz/week Comment: Occasionally Drug use: No Sexual activity: Yes Partners with: Male control/protection: Tubal Ligation EXAM: BP 126/84 (BP Site: Left Arm, BP Position: Sitting, BP Cuff Size: Regular Adult) Pulse 80 Resp 16 Wt 66.8 kg (147 lb 3.2 oz) BMI 28.04 kg/m? General Appearance: Well appearing, alert, in no acute distress, well-hydrated, well nourished.. Lungs: Lungs clear to auscultation. No wheezing, rhonchi, rales. Heart: RRR without murmur, gallop, or rubs. No ectopy. Health Maintenance List HEPATITIS C SCREENING due on 2005 DTAP,TDAP,TD(2 - Tdap) due on 06/05/2013 LIPID SCREEN due on 07/16/2017 MAMMOGRAM due on 05/23/2018 DIABETES SCREEN due on 04/07/2020 COLORECTAL CANCER SCREENING,SEE MODIFIER due on 08/17/2021 PAP EVERY 5 YEARS due on 05/23/2022 HPV EVERY 5 YEARS due on 05/23/2022 INFLUENZA Completed Data reviewed OARRS website checked and validated. All prescriptions have been APPROPRIATELY filled. No suspicious activity was identified.- 07/03/2017 by Heather Siddiqui MD ASSESSMENT/PLAN: 1. Anxiety - ICD9: 300.00, ICD10: F41.9 (primary diagnosis) - Continue current medication regimen. - LORAZEPAM 0.5 MG TABLET 2. Depression, unspecified depression type - ICD9: 311, ICD10: F32.9 - Continue current medication regimen. 3. Epigastric pain - ICD9: 789.06, ICD10: R10.13 - Setup appt with GI 4. Dysphagia, unspecified type - ICD9: 787.20, ICD10: R13.10 - Setup GI appt 3 mo f/u Heather Siddiqui MD The documentation for this note was completed by Deirdre Hudson Ma acting as scribe for Heather Siddiqui MD. July 03, 2017 4:26 PM. Referring Provider: HEATHER SIDDIQUI [[id number]] Allergies As of Date: 07/03/2017 Noted Allergy Reaction SEASONAL ALLERGIES 07/11/2011 14 - Other: See Comments Comments: headaches Date Reviewed: 07/03/2017 Reviewed by: Deirdre Hudson Ma - Fully Assessed Reason for Visit: F/U 3 Month [443] Cmt: Anxiety and Depression Primary Visit Diagnosis:Anxiety [F41.9] Other Visit Diagnoses:Depression, unspecified depression type [F32.9] Epigastric pain [R10.13] Dysphagia, unspecified type [R13.10] Order(s):LORazepam (ATIVAN) 0.5 mg tabTake 1 tablet by mouth twice daily as needed for up to 90 days.Disp: 60 tabletRfl: 2 Prescriptions as of 07/03/2017 Sig: LORAZEPAM 0.5 MG TABLET Take 1 tablet by mouth twice * VENLAFAXINE ER 37.5 MG CAPSUL* Take 1-2 capsules by mouth on* MELATONIN ORAL Take by mouth. Problem List As Of Date 07/03/2017 Noted Resolved BUNION [M21.619] INVALID FOR* Depressive Disorder, not Elsewhere Classified [*INVALID FOR* Family history of abdominal aortic aneurysm [Z8*INVALID FOR* Recurrent cold sores [B00.1] INVALID FOR* PMDD (premenstrual dysphoric disorder) [F32.81] INVALID FOR* Uterine fibroid [D25.9] INVALID FOR* Pelvic pain in female [R10.2] INVALID FOR* Epigastric pain [R10.13] INVALID FOR* Nausea [R11.0] INVALID FOR* Anxiety [F41.9] INVALID FOR* Prescriptions ordered this encounter Disp Refills Start End LORAZEPAM 0.5 MG TABLET 60 t* 2 07/03/2017 10/01/2017 Class: Print RX Route: ORAL Sig: Take 1 tablet by mouth twice daily as needed for up to 90 days. Medications Discontinued During This Encounter LORazepam (ATIVAN) 0.5 mg tab 60 t* 2 04/02/2017 07/03/2017 Class: Print RX Route: ORAL Sig: Take 1-2 tablets by mouth twice daily as needed for up to 90 days. Disc: Reason for discontinue is not on file. Disposition: Return in about 3 months (around 10/03/2017). Follow-up and Disposition History Recorded Encounter Status:Closed by HEATHER SIDDIQUI MD on 07/03/17 PROGRESS Observed: 05/31/2017 Status: COMPLETED Source: [address] 3:31 PM [facility] REPOSITORY HNO ID: [id number] Author: Natty Sullivan Psr Service: (none) Author Type: (none) Type: Progress Notes Filed: 05/31/2017 3:31 PM Note Text: pap logged, letter sent. Natty Sullivan Psr PROGRESS Observed: 05/31/2017 Status: COMPLETED Source: [address] 10:05 AM [facility] REPOSITORY HNO ID: [id number] Author: Elisa Weeks RN Service: (none) Author Type: (none) Type: Progress Notes Filed: 05/31/2017 10:07 AM Note Text: Per Brook Chen was provided with a post op shoe, size small, and instructed/educated in its application, wear, and care. All questions were answered, and patient was able to demonstrate competence with the necessary skills to utilize the above equipment. Elisa Weeks RN CNNURSE Observed: 05/31/2017 Status: COMPLETED Source: [address] 10:00 AM [facility] REPOSITORY Nurse Visit (PODIWS) BROOK PINA ([id number]) 1960 F Date Time Provider Department 05/31/17 10:00 AM NURSE/CHE [facility] PODIWS During your visit today, we recorded the following information about you: Elisa Weeks RN 05/31/2017 10:07 AM Signed Per Brook Chen was provided with a post op shoe, size small, and instructed/educated in its application, wear, and care. All questions were answered, and patient was able to demonstrate competence with the necessary skills to utilize the above equipment. Elisa Weeks RN Referring Provider: SCOOTER BOLTON [[id number]] Allergies As of Date: 05/31/2017 Noted Allergy Reaction SEASONAL ALLERGIES 07/11/2011 14 - Other: See Comments Comments: headaches Date Reviewed: 05/29/2017 Reviewed by: Becca ([facility]) Ismael - Fully Assessed Primary Visit Diagnosis:Closed fracture of phalanx of right fifth toe, initial encounter [S92.501A] Prescriptions as of 05/31/2017 Sig: PREDNISONE 20 MG TABLET Take 2 tablets by mouth once * AMOXICILLIN 875 MG TABLET Take 1 tablet by mouth twice * LORAZEPAM 0.5 MG TABLET Take 1-2 tablets by mouth twi* VENLAFAXINE ER 37.5 MG CAPSUL* Take 1-2 capsules by mouth on* MELATONIN ORAL Take by mouth. Problem List As Of Date 05/31/2017 Noted Resolved BUNION [M21.619] INVALID FOR* Depressive Disorder, not Elsewhere Classified [*INVALID FOR* Family history of abdominal aortic aneurysm [Z8*INVALID FOR* Recurrent cold sores [B00.1] INVALID FOR* PMDD (premenstrual dysphoric disorder) [F32.81] INVALID FOR* Uterine fibroid [D25.9] INVALID FOR* Pelvic pain in female [R10.2] INVALID FOR* Epigastric pain [R10.13] INVALID FOR* Nausea [R11.0] INVALID FOR* Anxiety [F41.9] INVALID FOR* Encounter Status:Closed by ELISA WEEKS RN on 05/31/17 ASHLEY Observed: 05/30/2017 Status: COMPLETED Source: [address] 12:00 AM [facility] REPOSITORY Telephone (PODIWS) BROOK PINA ([id number]) 1960 F Date Time Provider Department 05/30/17 SCOOTER BOLTON During your visit today, we recorded the following information about you: Elisa Weeks RN 05/30/2017 7:53 AM Signed ----- Message from Scooter Bolton sent at 05/30/2017 7:28 AM EDT ----- Please call patient to inform her that she does have fracture of 5th toe. I would recommend ruby taping to 4th toe and use surgical shoe with repeat xrays in 4 weeks ANTONY Donald Ma 05/30/2017 9:30 AM Signed Patient notified and verbalized understanding. Will use stiff sole shoe instead of post op shoe Jeffrey Weeks RN 05/31/2017 8:25 AM Signed Pt called office and states she does not have a stiff soled shoe. She will stop by office this morning at 10 am for post op shoe. Allergies As of Date: 05/30/2017 Noted Allergy Reaction SEASONAL ALLERGIES 07/11/2011 14 - Other: See Comments Comments: headaches Date Reviewed: 05/29/2017 Reviewed by: Becca Guevara - Fully Assessed Reason for Visit: Results [95] Primary Visit Diagnosis:Pain in right foot [M79.671] Order(s):XR FOOT GENERAL 3V AP/LAT/OBL RT [[id number]] Order #: [id number] FUTURE Prescriptions as of 05/30/2017 Sig: PREDNISONE 20 MG TABLET Take 2 tablets by mouth once * AMOXICILLIN 875 MG TABLET Take 1 tablet by mouth twice * LORAZEPAM 0.5 MG TABLET Take 1-2 tablets by mouth twi* VENLAFAXINE ER 37.5 MG CAPSUL* Take 1-2 capsules by mouth on* MELATONIN ORAL Take by mouth. Problem List As Of Date 05/30/2017 Noted Resolved BUNION [M21.619] INVALID FOR* Depressive Disorder, not Elsewhere Classified [*INVALID FOR* Family history of abdominal aortic aneurysm [Z8*INVALID FOR* Recurrent cold sores [B00.1] INVALID FOR* PMDD (premenstrual dysphoric disorder) [F32.81] INVALID FOR* Uterine fibroid [D25.9] INVALID FOR* Pelvic pain in female [R10.2] INVALID FOR* Epigastric pain [R10.13] INVALID FOR* Nausea [R11.0] INVALID FOR* Anxiety [F41.9] INVALID FOR* Encounter Status:Closed by JEFFREY HAYES MA on 05/30/17 PROGRESS Observed: 05/29/2017 Status: COMPLETED Source: [address] 9:41 AM [facility] RE[facility] HNO ID: [id number] Author: Becca Guevara Service: (none) Author Type: Nurse Practitioner Type: Progress Notes Filed: 05/29/2017 12:12 PM Note Text: Subjective HPI HPI Brook Pina is a 57 year old female who presents today for CC of cough, sore throat, sneezing. This started 2 days ago. Has tried otc medication. Symptoms are worsened by nothing. Risk factors started raising ducks 2 weeks ago, is concerned that caught something from them. .Patient presents with: Head Congestion: chest congestion, cough, chills and sore throat x 2 days, did clean out duck cage PAST MEDICAL HISTORY Diagnosis Date - Abdominal pain, epigastric - Arthritis of right hip - Diverticulosis of colon (without mention of hemorrhage) - Dysthymic disorder Depression (non-psychotic) - Internal hemorrhoids without mention of complication PAST SURGICAL HISTORY Procedure Laterality Date - BX OF BREAST; INCISIONAL 1987 Bx of breast, incisional - left nipple - CARPAL TUNNEL 09/13/2015, 10/18/2015 right 09/12, left 10/17 - DELIVERY ONLY , low cervical - COLONOSCOP W/ OR W/O [facility] SPEC 08/18/11 repeat 10 years - EGD W/O OR W/BRUSH/WASH 01/30/2013 EGD - LIGATE FALLOPIAN TUBE Tubal ligation - REMOVAL OF TONSILS,<12 Y/O Tonsillectomy - US BX OF BREAST NEEDLE 2007 Right, benign ALLERGIES Seasonal Allergies MEDICATIONS LORazepam (ATIVAN) 0.5 mg tab Take 1-2 tablets by mouth twice daily as needed for up to 90 days. venlafaxine ER (EFFEXOR XR) 37.5 mg 24 hr capsule Take 1-2 capsules by mouth once daily. MELATONIN ORAL Take by mouth. FAMILY HISTORY Problem Relation Age of Onset - Alcohol/Drug Paternal Grandfather - Allergies Mother - Allergies Sister - Cancer Maternal Grandmother - Colon Cancer Maternal Aunt - Diabetes Brother - Alzheimer's Disease Mother - depression [Other] [OTHER] Sister 2 sisters - depression [Other] [OTHER] Mother - Hypertension Sister - Hypertension Sister - Stroke Mother TIA's - Coronary Artery Disease Maternal Grandfather - Aneurysm Father 84 - Arthritis Maternal side of family Social History Substance Use Topics - Smoking status: Former Smoker - Smokeless tobacco: Never Used - Alcohol use 36.0 oz/week Comment: Occasionally Review of Systems Constitutional: Negative for chills, fever and weight loss. HENT: Positive for congestion and sore throat. Negative for ear pain and nosebleeds. Respiratory: Positive for cough. Negative for shortness of breath and wheezing. Musculoskeletal: Negative for neck pain. Objective Blood pressure 110/70, pulse 78, temperature 36.8 ?C (98.2 ?F), temperature source Tympanic, resp. rate 16, weight 66.2 kg (146 lb), SpO2 97 %. Physical Exam Constitutional: She is oriented to person, place, and time and well-developed, well-nourished, and in no distress. Non-toxic appearance. She does not have a sickly appearance. No distress. HENT: Head: Normocephalic and atraumatic. Right Ear: Hearing, external ear and ear canal normal. Tympanic membrane is erythematous and bulging. Tympanic membrane is not perforated. Left Ear: Hearing, external ear and ear canal normal. Tympanic membrane is erythematous. Tympanic membrane is not perforated and not bulging. Nose: Nose normal. Mouth/Throat: Uvula is midline, oropharynx is clear and moist and mucous membranes are normal. Eyes: Conjunctivae and lids are normal. Pupils are equal, round, and reactive to light. Right eye exhibits no discharge. Left eye exhibits no discharge. No scleral icterus. Neck: Trachea normal and normal range of motion. Neck supple. Cardiovascular: Normal rate, regular rhythm and normal heart sounds. Pulmonary/Chest: Effort normal and breath sounds normal. Lymphadenopathy: She has no cervical adenopathy. Neurological: She is alert and oriented to person, place, and time. Skin: No rash noted. She is not diaphoretic. ASSESSMENT/PLAN: 1. Viral URI with cough - ICD9: 465.9, ICD10: J06.9, B97.89 (primary diagnosis) - Discussed viral etiology and rationale for treatment. - Symptomatic treatment with prn analgesia - Supportive care with fluids and rest - Follow up in 3-5 days if symptoms persist or sooner if worsening of symptoms - PREDNISONE 20 MG TABLET 2. Acute otitis media, right - ICD9: 382.9, ICD10: H66.91 - Will begin treatment with Amoxicillin for 10 days - Supportive care with plenty of fluids, rest, and analgesia prn. - Follow up in 3-5 days if symptoms persist or worsen. - AMOXICILLIN 875 MG TABLET Prescription instructions reviewed with patient as applicable. Patient advised if symptoms do not improve or if symptoms worsen sooner, to contact the office for further evaluation by their primary care physician. Potential red flag symptoms discussed with the patient. Reviewed appropriate action plan to take if red flag symptoms occur. Patient agreeable to treatment plan. Becca Guevara APRN.CNP CNOV Observed: 05/29/2017 Status: COMPLETED Source: [address] 9:30 AM [facility] REPOSITORY Office Visit (WSTR) MARJ PINAJAI Tompkins ([id number]) 1960 F Date Time Provider Department 05/29/17 9:30 AM BECCA GUEVARA (VIKTOR) [facility] During your visit today, we recorded the following information about you: Temperature Pulse Respiration Blood pressure 98.2 degrees 78/minute 16/minute 110/70 Weight 66.2 kg Becca Guevara APRN.CNP 05/29/2017 12:12 PM Signed Subjective HPI HPI Brook Tompkins Yovani is a 57 year old female who presents today for CC of cough, sore throat, sneezing. This started 2 days ago. Has tried otc medication. Symptoms are worsened by nothing. Risk factors started raising ducks 2 weeks ago, is concerned that caught something from them. .Patient presents with: Head Congestion: chest congestion, cough, chills and sore throat x 2 days, did clean out duck cage PAST MEDICAL HISTORY Diagnosis Date - Abdominal pain, epigastric - Arthritis of right hip - Diverticulosis of colon (without mention of hemorrhage) - Dysthymic disorder Depression (non-psychotic) - Internal hemorrhoids without mention of complication PAST SURGICAL HISTORY Procedure Laterality Date - BX OF BREAST; INCISIONAL 1988 Bx of breast, incisional - left nipple - CARPAL TUNNEL 09/13/2015, 10/18/2015 right 09/12, left 10/17 - DELIVERY ONLY , low cervical - COLONOSCOP W/ OR W/O [facility] SPEC 7/13/12 repeat 10 years - EGD W/O OR W/BRUSH/WASH 01/30/2013 EGD - LIGATE FALLOPIAN TUBE Tubal ligation - REMOVAL OF TONSILS,ANDlt;13 Y/O Tonsillectomy - US BX OF BREAST NEEDLE 2007 Right, benign ALLERGIES Seasonal Allergies MEDICATIONS LORazepam (ATIVAN) 0.5 mg tab Take 1-2 tablets by mouth twice daily as needed for up to 90 days. venlafaxine ER (EFFEXOR XR) 37.5 mg 24 hr capsule Take 1-2 capsules by mouth once daily. MELATONIN ORAL Take by mouth. FAMILY HISTORY Problem Relation Age of Onset - Alcohol/Drug Paternal Grandfather - Allergies Mother - Allergies Sister - Cancer Maternal Grandmother - Colon Cancer Maternal Aunt - Diabetes Brother - Alzheimer's Disease Mother - depression [Other] [OTHER] Sister 2 sisters - depression [Other] [OTHER] Mother - Hypertension Sister - Hypertension Sister - Stroke Mother TIA's - Coronary Artery Disease Maternal Grandfather - Aneurysm Father 84 - Arthritis Maternal side of family Social History Substance Use Topics - Smoking status: Former Smoker - Smokeless tobacco: Never Used - Alcohol use 36.0 oz/week Comment: Occasionally Review of Systems Constitutional: Negative for chills, fever and weight loss. HENT: Positive for congestion and sore throat. Negative for ear pain and nosebleeds. Respiratory: Positive for cough. Negative for shortness of breath and wheezing. Musculoskeletal: Negative for neck pain. Objective Blood pressure 110/70, pulse 78, temperature 36.8 ?C (98.2 ?F), temperature source Tympanic, resp. rate 16, weight 66.2 kg (146 lb), SpO2 97 %. Physical Exam Constitutional: She is oriented to person, place, and time and well-developed, well-nourished, and in no distress. Non-toxic appearance. She does not have a sickly appearance. No distress. HENT: Head: Normocephalic and atraumatic. Right Ear: Hearing, external ear and ear canal normal. Tympanic membrane is erythematous and bulging. Tympanic membrane is not perforated. Left Ear: Hearing, external ear and ear canal normal. Tympanic membrane is erythematous. Tympanic membrane is not perforated and not bulging. Nose: Nose normal. Mouth/Throat: Uvula is midline, oropharynx is clear and moist and mucous membranes are normal. Eyes: Conjunctivae and lids are normal. Pupils are equal, round, and reactive to light. Right eye exhibits no discharge. Left eye exhibits no discharge. No scleral icterus. Neck: Trachea normal and normal range of motion. Neck supple. Cardiovascular: Normal rate, regular rhythm and normal heart sounds. Pulmonary/Chest: Effort normal and breath sounds normal. Lymphadenopathy: She has no cervical adenopathy. Neurological: She is alert and oriented to person, place, and time. Skin: No rash noted. She is not diaphoretic. ASSESSMENT/PLAN: 1. Viral URI with cough - ICD9: 465.9, ICD10: J06.9, B97.89 (primary diagnosis) - Discussed viral etiology and rationale for treatment. - Symptomatic treatment with prn analgesia - Supportive care with fluids and rest - Follow up in 3-5 days if symptoms persist or sooner if worsening of symptoms - PREDNISONE 20 MG TABLET 2. Acute otitis media, right - ICD9: 382.9, ICD10: H66.91 - Will begin treatment with Amoxicillin for 10 days - Supportive care with plenty of fluids, rest, and analgesia prn. - Follow up in 3-5 days if symptoms persist or worsen. - AMOXICILLIN 875 MG TABLET Prescription instructions reviewed with patient as applicable. Patient advised if symptoms do not improve or if symptoms worsen sooner, to contact the office for further evaluation by their primary care physician. Potential red flag symptoms discussed with the patient. Reviewed appropriate action plan to take if red flag symptoms occur. Patient agreeable to treatment plan. Becca Guevara APRN.VIKTOR Guevara APRN.VIKTOR 05/29/2017 9:50 AM Signed OTITIS MEDIA GENERAL INFORMATION: Otitis media is an infection of the middle ear. The middle ear sits behind the eardrum. This infection may be caused by a virus or bacteria and often follows a cold. Children often have repeat ear infections. Otitis media is not contagious. INSTRUCTIONS: 1. An antibiotic has been prescribed. It should be taken exactly as prescribed. Do not stop the medicine even if the symptoms go away. 2. Zvhk-wju-ywjnowz pain medication may be taken or other pain medication as prescribed by the doctor. 3. Nothing should be placed in the ear unless instructed by your doctor. 4. The patient may return to school/daycare or work when the temperature is normal (98.6 F or 37 C). 5. The patient should not swim while the ear is infected. CONTACT YOUR DOCTOR IF YOU OR YOUR CHILD: 1. Does not feel better within 36 hours. 2. Develops a temperature over 102E F (39E C). 3. Starts vomiting or has diarrhea. 4. Develops drainage from the affected ear. 5. Has any new problem that may be related to the medicine prescribed. RETURN TO THE ED IF: 1. You or your child has a severe headache or pain around the ear. 2. You or your child notice swelling around the ear. 3. You or your child has a seizure (convulsion), twitching of the facial muscles, or passes out. 4. You or your child is dizzy, has a stiff neck, or cannot walk or talk normally. 5. Your child becomes more irritable or listless (not interested in his or her surroundings, does not get soothed by you holding him or her). RESPIRATORY INFECTION GENERAL INFORMATION: An upper respiratory tract infection, or cold, is a viral infection of the airway passages. It can be caused by any one of almost 200 different viruses. Common symptoms include a runny or stuffy nose, sneezing, watery eyes, sore throat, cough, and slight fever. Colds are contagious, especially during the first 3 or 4 days and cannot be cured by antibiotics. They are spread by coughs, sneezes, and direct contact, especially [id number]. A respiratory tract infection usually clears up in a few days, but some people may be sick for a week or two. INSTRUCTIONS: 1. Be careful not to blow your nose too hard because this may cause a nosebleed. 2. Use a cool-mist humidifier (vaporizer) to increase air moisture. This will make it easier for you to breathe. Do not use hot steam. 3. Rest as much as possible and get plenty of sleep. 4. Wash your hands often, especially after you blow your nose. Cover your mouth and nose with a tissue when you sneeze or cough. 5. Drink plenty of clear fluids (8 glasses a day) such as water, fruit juice, tea, clear soups, and carbonated beverages. CONTACT YOUR DOCTOR IF : 1. Your fever lasts more than 3 days. 2. You have a sore throat that gets worse or you see white or yellow spots in your throat. 3. Your cough gets worse or lasts more than 10 days. 4. You develop a rash anywhere on your skin. 5. You have an earache or a headache. 6. You have thick greenish or yellowish discharge from your nose. RETURN IMMEDIATELY IF: 1. You cough up thick yellow, green, sanchez, or bloody sputum. 2. You have difficulty breathing, pain in your chest, or your skin or nails look sanchez or blue. 3. You have shaking chills or a temperature over 102 F (39 C). Referring Provider: SELF [[id number]] Allergies As of Date: 05/29/2017 Noted Allergy Reaction SEASONAL ALLERGIES 07/11/2011 14 - Other: See Comments Comments: headaches Date Reviewed: 05/29/2017 Reviewed by: Becca WisemanCranberry Specialty HospitalAlex Guevara - Fully Assessed Reason for Visit: Head Congestion [234] Cmt: chest congestion, cough, chills and sore throat x 2 days, did clean out duck cage Primary Visit Diagnosis:Viral URI with cough [J06.9, B97.89] Other Visit Diagnosis:Acute otitis media, right [H66.91] Order(s):predniSONE (DELTASONE) 20 mg tabletTake 2 tablets by mouth once daily for 5 days.Disp: 10 tabletRfl: 0 amoxicillin (AMOXIL) 875 mg tabletTake 1 tablet by mouth twice daily for 10 days.Disp: 20 tabletRfl: 0 Prescriptions as of 05/29/2017 Sig: LORAZEPAM 0.5 MG TABLET Take 1-2 tablets by mouth twi* VENLAFAXINE ER 37.5 MG CAPSUL* Take 1-2 capsules by mouth on* MELATONIN ORAL Take by mouth. PREDNISONE 20 MG TABLET Take 2 tablets by mouth once * AMOXICILLIN 875 MG TABLET Take 1 tablet by mouth twice * Problem List As Of Date 05/29/2017 Noted Resolved BUNION [M21.619] INVALID FOR* Depressive Disorder, not Elsewhere Classified [*INVALID FOR* Family history of abdominal aortic aneurysm [Z8*INVALID FOR* Recurrent cold sores [B00.1] INVALID FOR* PMDD (premenstrual dysphoric disorder) [F32.81] INVALID FOR* Uterine fibroid [D25.9] INVALID FOR* Pelvic pain in female [R10.2] INVALID FOR* Epigastric pain [R10.13] INVALID FOR* Nausea [R11.0] INVALID FOR* Anxiety [F41.9] INVALID FOR* Other instructions from your clinician: OTITIS MEDIA GENERAL INFORMATION: Otitis media is an infection of the middle ear. The middle ear sits behind the eardrum. This infection may be caused by a virus or bacteria and often follows a cold. Children often have repeat ear infections. Otitis media is not contagious. INSTRUCTIONS: 1. An antibiotic has been prescribed. It should be taken exactly as prescribed. Do not stop the medicine even if the symptoms go away. 2. Husa-cmw-tdijlti pain medication may be taken or other pain medication as prescribed by the doctor. 3. Nothing should be placed in the ear unless instructed by your doctor. 4. The patient may return to school/daycare or work when the temperature is normal (98.6 F or 37 C). 5. The patient should not swim while the ear is infected. CONTACT YOUR DOCTOR IF YOU OR YOUR CHILD: 1. Does not feel better within 36 hours. 2. Develops a temperature over 102E F (39E C). 3. Starts vomiting or has diarrhea. 4. Develops drainage from the affected ear. 5. Has any new problem that may be related to the medicine prescribed. RETURN TO THE ED IF: 1. You or your child has a severe headache or pain around the ear. 2. You or your child notice swelling around the ear. 3. You or your child has a seizure (convulsion), twitching of the facial muscles, or passes out. 4. You or your child is dizzy, has a stiff neck, or cannot walk or talk normally. 5. Your child becomes more irritable or listless (not interested in his or her surroundings, does not get soothed by you holding him or her). RESPIRATORY INFECTION GENERAL INFORMATION: An upper respiratory tract infection, or cold, is a viral infection of the airway passages. It can be caused by any one of almost 200 different viruses. Common symptoms include a runny or stuffy nose, sneezing, watery eyes, sore throat, cough, and slight fever. Colds are contagious, especially during the first 3 or 4 days and cannot be cured by antibiotics. They are spread by coughs, sneezes, and direct contact, especially osxq-iz-eygv. A respiratory tract infection usually clears up in a few days, but some people may be sick for a week or two. INSTRUCTIONS: 1. Be careful not to blow your nose too hard because this may cause a nosebleed. 2. Use a cool-mist humidifier (vaporizer) to increase air moisture. This will make it easier for you to breathe. Do not use hot steam. 3. Rest as much as possible and get plenty of sleep. 4. Wash your hands often, especially after you blow your nose. Cover your mouth and nose with a tissue when you sneeze or cough. 5. Drink plenty of clear fluids (8 glasses a day) such as water, fruit juice, tea, clear soups, and carbonated beverages. CONTACT YOUR DOCTOR IF : 1. Your fever lasts more than 3 days. 2. You have a sore throat that gets worse or you see white or yellow spots in your throat. 3. Your cough gets worse or lasts more than 10 days. 4. You develop a rash anywhere on your skin. 5. You have an earache or a headache. 6. You have thick greenish or yellowish discharge from your nose. RETURN IMMEDIATELY IF: 1. You cough up thick yellow, green, sanchez, or bloody sputum. 2. You have difficulty breathing, pain in your chest, or your skin or nails look sanchez or blue. 3. You have shaking chills or a temperature over 102 F (39 C). Prescriptions ordered this encounter Disp Refills Start End PREDNISONE 20 MG TABLET 10 t* 0 05/29/2017 06/03/2017 Route: ORAL Sig: Take 2 tablets by mouth once daily for 5 days. AMOXICILLIN 875 MG TABLET 20 t* 0 05/29/2017 06/08/2017 Route: ORAL Sig: Take 1 tablet by mouth twice daily for 10 days. Letter Text [facility] Department of Urgent Care Becca Guevara CNP [address] [place], [place] [address] 05/29/2017 Brook Pina [facility]# [id number] [address] [place] [id number] TO WHOM IT MAY CONCERN: This is to confirm that Brook Pina had an appointment and was seen at the [facility] in the Department of Urgent Care by Becca Guevara CNP on 05/29/2017. Sincerely yours, Becca Guevara CNP Encounter Status:Closed by ENID GUEVARANATHAN VIKTOR on 05/29/17 XR FOOT 3V AP/LAT/OBL Observed: 05/29/2017 Status: F Source: [facility] 9:16 AM [facility] REPOSITORY * * *Final Report* * * DATE OF EXAM: May 29 2017 9:16AM WRX [id number] - XR FOOT 3V AP/LAT/OBL RT / PROCEDURE REASON: Contusion of right lesser toe(s) without damage to nail, initial encounter * * * * Physician Interpretation * * * * HISTORY: 57-YEAR-OLD FEMALE WITH Contusion of right lesser toe(s) without damage to nail, initial encounter . Jammed right 5th digit x 3 days ago. TECHNIQUE: XR FOOT 3V AP/LAT/OBL RT Laterality: RIGHT Number of different views (projections): 3 COMPARISON: None RESULT: Nondisplaced transverse fracture of the fifth proximal phalanx at the metaphysis. Bipartite medial sesamoid of the first metatarsal. Narrowing DIP joint and third digit. Bones and joints otherwise intact. IMPRESSION: FRACTURE OF THE PROXIMAL PHALANX OF THE FIFTH DIGIT. 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: PSCB Transcribe Date/Time: May 29 2017 2:50P Dictated by : HECTOR CROSS MD This examination was interpreted and the report reviewed and electronically signed by: HECTOR CROSS MD on May 29 2017 2:52PM EST [id number] Observed: 05/29/2017 Status: COMPLETED Source: [address] 9:07 AM [facility] REPOSITORY HNO ID: [id number] Author: Anne Crowe (Rt) Arturo Erwin Service: (none) Author Type: Net Developer Consultant Type: Progress Notes Filed: 05/29/2017 9:16 AM Note Text: Radiology Service Progress Note PATIENT NAME: Brook Pina DATE OF SERVICE: May 29, 2017 TIME: 9:07 AM PATIENT IDENTITY VERIFICATION COMPLETED USING TWO (2) METHODS: Patient confirmed name verbally and Date of . PATIENT GENDER DATA: Female. status: : No status: NO. PATIENT RELEVANT IMPLANT DATA REVIEWED: Not Applicable RADIOLOGY DEPARTMENT: General X-ray: Exam(s) Completed: Lower Extremity X-Ray(s): Foot, Right and Wt. Bearing: PERIPHERAL IV DATA: Not applicable SIGNED BY: RT Caryn May 29, 2017 9:07 AM CNVITOR Observed: 05/29/2017 Status: COMPLETED Source: [address] 8:40 AM [facility] REPOSITORY Office Visit (PODIWS) BROOK PINA ([id number]) 1960 F Date Time Provider Department 05/29/17 8:40 AM SCOOTER BOLTON During your visit today, we recorded the following information about you: Scooter Bolton DPM 05/29/2017 10:20 AM Signed ? Scooter Bolton DPM Department of Podiatry [address] [facility] [address] Dept: [phone] Dept 05/29/2017 Follow Up Podiatric Office Visit: HPI: Brook Pina is a 57 year old female. Patient presents for follow up to discuss MRI results of L foot. Patient reports that she is doing a little better, pain not as bad since MANUEL. Patient reports constant ache that is rated a 1/10 in L plantar foot. Pain is increased to a 4/10 the longer she is on her foot and with prolonged activity. Has previously tried MDF, inserts, and ruby taping with no relief. She is here to discuss MRI results. Patient reports that she stubbed her R pinky toe on 05/27/17. Patient reports R 5th toe is swollen, bruised, and painful. Pain rated a 7/10 that is described as an ache. Reports stabbing pain that if bended the wrong way. Patient has taped toe herself which provides some relief. She has not had XR or been seen for this problem. Would like to discuss today. Physical Exam: Constitutional: Pt is a well developed 57 year old female who is alert, oriented and cooperative Eyes: Following during examination. No redness or drainage. Respiratory: RR normal and nonlabored. Even breathing. No evidence of distress or shortness of breath. Psychology: Patient is engaged during conversation. Normal affect and mood. Does not appear depressed or anxious during encounter. Vascular: Dorsalis pedis and posterior tibial pulses palpable b/l Capillary Fill time ANDlt; 5 seconds to digits 1-5 b/l Skin temperature warm to warm proximal to distal b/l Hair growth present to digits Neurological: intact light touch/epicritic sensation intact protective sensation, Dermatological: Skin appears well hydrated and supple. good color, texture, turgor. Callosities absent .Open lesions absent. Swelling and bruising present to R 5th toe Musculoskeletal/Orthopaedic: Patient has pain to palpation of L 2nd toe along plantar 2nd mtpj There is bruising and swelling of right 5th toe. Foot type is neutral structurally AJ ROM is full with knee extended and flexed 1st MPJ is slightly decreased when loaded and no pain or crepitus are noted with ROM. MTJ, STJ are full and free of pain and crepitus. +5/5 muscle strength dorsiflexion, plantarflexion, inversion, eversion b/l ASSESSMENT: (S89.92XA) Plantar plate injury, left, initial encounter (primary encounter diagnosis) Plan: 1. Discussed MRI results with patient in detail. 2. 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 Ligament tear in L 2nd toe, discussed etiology with patient, L 2nd toe deviating medially. Discussed conservative options vs surgical treatment of tear. Surgical options would include, but not limited to L 2nd plantar plate repair with fortino osteotomy. Patient would need to be committed to [facility] for 6-8 weeks with boot. Risks and benefits discussed with patient. Patient would like to watch for now and understands that issue can worsen. Specifically, the toe can become subluxed over great toe. Patient informed that taping can be used to hold toe in rectus position. Again offered surgery to fix problem but patient wishes to monitor. 3. Possible pinched nerve on mri - discussed steroid injection for neuroma, since no pain at this point, patient will watch (S90.121A) Contusion of lesser toe of right foot without damage to nail, initial encounter Plan: 1. Examined patient, swelling and bruising present 2. Will order XR to see if fracture present - we will call with results RTC - PRN The documentation for this note was completed by Jeffrey Hayes Ma acting as scribe for Scooter Bolton DPM. May 29, 2017 8:35 AM. I agree with the Chief Complaint, ROS, and Past Histories independently gathered by the clinical support representative and the remaining scribed note accurately describes my personal service to the patient. Scooter Bolton DPM Referring Provider: SCOOTER BOLTON [[id number]] Allergies As of Date: 05/29/2017 Noted Allergy Reaction SEASONAL ALLERGIES 07/11/2011 14 - Other: See Comments Comments: headaches Date Reviewed: 05/29/2017 Reviewed by: Jennifer Castillo Ma - Fully Assessed Reason for Visit: Follow Up [171] Primary Visit Diagnosis:Plantar plate injury, left, initial encounter [S89.92XA] Other Visit Diagnosis:Contusion of lesser toe of right foot without damage to nail, initial encounter [S90.121A] Order(s):XR FOOT GENERAL 3V AP/LAT/OBL RT [[id number]] Order #: [id number] FUTURE Prescriptions as of 05/29/2017 Sig: LORAZEPAM 0.5 MG TABLET Take 1-2 tablets by mouth twi* VENLAFAXINE ER 37.5 MG CAPSUL* Take 1-2 capsules by mouth on* MELATONIN ORAL Take by mouth. Problem List As Of Date 05/29/2017 Noted Resolved BUNION [M21.619] INVALID FOR* Depressive Disorder, not Elsewhere Classified [*INVALID FOR* Family history of abdominal aortic aneurysm [Z8*INVALID FOR* Recurrent cold sores [B00.1] INVALID FOR* PMDD (premenstrual dysphoric disorder) [F32.81] INVALID FOR* Uterine fibroid [D25.9] INVALID FOR* Pelvic pain in female [R10.2] INVALID FOR* Epigastric pain [R10.13] INVALID FOR* Nausea [R11.0] INVALID FOR* Anxiety [F41.9] INVALID FOR* Encounter Status:Closed by SCOOTER BOLTON DPM on 05/29/17 PROGRESS Observed: 05/29/2017 Status: COMPLETED Source: [address] 8:34 AM [facility] REPOSITORY HNO ID: [id number] Author: Scooter Bolton Service: (none) Author Type: Physician Type: Progress Notes Filed: 05/29/2017 10:20 AM Note Text: ? Scooter Bolton DPM Department of Podiatry [address] [place] [facility] [address] Dept: [phone] Dept 05/29/2017 Follow Up Podiatric Office Visit: HPI: Brook Pina is a 57 year old female. Patient presents for follow up to discuss MRI results of L foot. Patient reports that she is doing a little better, pain not as bad since MANUEL. Patient reports constant ache that is rated a 1/10 in L plantar foot. Pain is increased to a 4/10 the longer she is on her foot and with prolonged activity. Has previously tried MDF, inserts, and ruby taping with no relief. She is here to discuss MRI results. Patient reports that she stubbed her R pinky toe on 05/27/17. Patient reports R 5th toe is swollen, bruised, and painful. Pain rated a 7/10 that is described as an ache. Reports stabbing pain that if bended the wrong way. Patient has taped toe herself which provides some relief. She has not had XR or been seen for this problem. Would like to discuss today. Physical Exam: Constitutional: Pt is a well developed 57 year old female who is alert, oriented and cooperative Eyes: Following during examination. No redness or drainage. Respiratory: RR normal and nonlabored. Even breathing. No evidence of distress or shortness of breath. Psychology: Patient is engaged during conversation. Normal affect and mood. Does not appear depressed or anxious during encounter. Vascular: Dorsalis pedis and posterior tibial pulses palpable b/l Capillary Fill time < 5 seconds to digits 1-5 b/l Skin temperature warm to warm proximal to distal b/l Hair growth present to digits Neurological: intact light touch/epicritic sensation intact protective sensation, Dermatological: Skin appears well hydrated and supple. good color, texture, turgor. Callosities absent .Open lesions absent. Swelling and bruising present to R 5th toe Musculoskeletal/Orthopaedic: Patient has pain to palpation of L 2nd toe along plantar 2nd mtpj There is bruising and swelling of right 5th toe. Foot type is neutral structurally AJ ROM is full with knee extended and flexed 1st MPJ is slightly decreased when loaded and no pain or crepitus are noted with ROM. MTJ, STJ are full and free of pain and crepitus. +5/5 muscle strength dorsiflexion, plantarflexion, inversion, eversion b/l ASSESSMENT: (S89.92XA) Plantar plate injury, left, initial encounter (primary encounter diagnosis) Plan: 1. Discussed MRI results with patient in detail. 2. 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 Ligament tear in L 2nd toe, discussed etiology with patient, L 2nd toe deviating medially. Discussed conservative options vs surgical treatment of tear. Surgical options would include, but not limited to L 2nd plantar plate repair with fortino osteotomy. Patient would need to be committed to NWB for 6-8 weeks with boot. Risks and benefits discussed with patient. Patient would like to watch for now and understands that issue can worsen. Specifically, the toe can become subluxed over great toe. Patient informed that taping can be used to hold toe in rectus position. Again offered surgery to fix problem but patient wishes to monitor. 3. Possible pinched nerve on mri - discussed steroid injection for neuroma, since no pain at this point, patient will watch (S90.121A) Contusion of lesser toe of right foot without damage to nail, initial encounter Plan: 1. Examined patient, swelling and bruising present 2. Will order XR to see if fracture present - we will call with results RTC - PRN The documentation for this note was completed by Jeffrey Hayes Ma acting as scribe for Scooter Bolton DPM. May 29, 2017 8:35 AM. I agree with the Chief Complaint, ROS, and Past Histories independently gathered by the clinical support representative and the remaining scribed note accurately describes my personal service to the patient. Scooter Bolton DPM CNCO Observed: 05/23/2017 Status: COMPLETED Source: [address] 11:26 AM [facility] [place] REPOSITORY HNO ID: [id number] Author: Mammography Coordinator Service: (none) Author Type: Physician Type: Letter Filed: 05/24/2017 11:32 PM Note Text: May 23, 2017 PID: [id number] Brook Pina [address] [id number] Dear Ms. Pina, We are pleased to inform you that the results of your recent breast imaging exam on 05/23/2017 are normal. Your mammogram demonstrates that you have dense breast tissue, which could hide abnormalities. Dense breast tissue, in and of itself, is a relatively common condition. Therefore, this information is not provided to cause undue concern; rather, it is to raise your awareness and promote discussion with your health care provider regarding the presence of dense breast tissue in addition to other risk factors. Early detection of cancer is very important. We also understand recommendations regarding breast cancer screening are controversial. Please discuss with your primary care provider which strategy is best for you and whether a mammogram is right for you. Your imaging studies and report will be kept on file at [facility] as part of your permanent medical record and are available for your continuing care. Thank you for allowing us to help in meeting your health care needs. Sincerely, Dr. Aaron Interpreting Radiologist [facility] (Normal over 40) CA 125 Collected: 05/23/2017 Status: F Source: [address] 9:12 AM [facility] REPOSITORY TYPE CODE TESTS RESULT OUT OF RANGE REFERENCE UNITS LAB CA125 <39 U/mL CA 125 12 Result Comment: CA 125 test methodology used is the Electrochemiluminescence Immunoassay by [facility]. The reference interval is based on the 95th percentile of 240 apparently healthy premenopausal and postmenopausal women. At a cutoff value of 65 U/mL, the test sensitivity to distinguish ovarian carcinoma (FIGO stage I to IV) versus benign gynecological disease is 79%, with a specificity of 82%. Reference: Cancer Antigen 125 (CA 125 II) [package insert V 1.0 Egyptian]. [facility], [place], [place] (November 2014) Performed By: #### CA125 #### [facility] [address] [place], [place] [address] HPV W/GENOTYPE Collected: 05/23/2017 Status: F Source: [address] 8:40 AM [facility] REPOSITORY TYPE CODE TESTS RESULT OUT OF REFERENCE UNITS RANGE LAB HPVT16 HPV HighRisk Negative for Type 16 HPV DNA high risk type 16 by PCR. LAB HPVT18 HPV HighRisk Negative for Type 18 HPV DNA high risk type 18 by PCR. LAB HPVHRO HPV HighRisk Negative for Other HPV DNA high risk types: 31,33,35,39,45 ,51,52,56,58,5 9,66,68 by PCR. Result Comment: This test was developed and its performance characteristics determined by [facility] Endy Apodaca [facility] [place] ([facility]). It has not been cleared or approved by the FDA. -[facility] is regulated under CLIA as qualified to perform high-complexity testing. This test is used for clinical purposes. It should not be regarded as inv estigational or for research. Performed By: #### HPVHRR #### [facility] [address] [place], [place] [address] CYTOLOGY Observed: 05/23/2017 Status: C Source: [address] 8:40 [facility] REPOSITORY ADDITIONAL PROCEDURES PRESENT Specimen originated from [facility] Specimen #: [id number] Submitting Physician: BRISA URRUTIA SPECIMEN SUBMITTED A: CERVICAL, SCREENING, FLUID FINAL DIAGNOSIS A. CERVICAL, SCREENING, FLUID Satisfactory for interpretation. Negative for intraepithelial lesion or malignancy. Atrophic specimen. This specimen has been analyzed by the ThinPrep Imaging System, an automated imaging and review system, which assists the laboratory in evaluating cells on ThinPrep Pap tests. Following automated imaging, selected matthew from every slide are reviewed by a chemical compounder helper. JOSUE Zuluaga(ASCP) (Electronic Signature) ADDITIONAL PROCEDURE(S) HUMAN PAPILLOMA VIRUS Date Ordered: 05/24/2017 Date Reported: 05/25/2017 Procedure Results and Interpretation Negative for HPV DNA high risk type 16 by PCR. Negative for HPV DNA high risk type 18 by PCR. Negative for HPV DNA high risk types: 31,33,35,39,45,51,52,56,58,59,66,68 by PCR. This test was developed and its performance characteristics determined by [facility] [place] ([facility]). It has not been cleared or approved by the FDA. -[facility] is regulated under CLIA as qualified to perform high-complexity testing. This test is used for clinical purposes. It should not be regarded as investigational or for research. CLINICAL DATA ROUTINE EXAM, HPV Testing: Yes, automatic HPV patients over 30 Date of Last Menstrual Period: 12/25/2016 STAINS A: CERVICAL, SCREENING, FLUID THIN PREP DUSTING AND BRUSHING MACHINE OPERATOR Rosa Lazar M.D., Staffing Operations Manager Date of Report: 05/31/2017 Date of Procedure: 05/23/2017 Date of Receipt: 05/24/2017 Submitted by: BRISA URRUTIA Location: [facility] Diagnostic interpretation performed at [facility], [address] [place] [address]. The Pap Smear is a screening test for cervical cancer. False negative results occur with all screening tests, emphasizing the need for rescreening at recommended intervals, and clinical correlation. PROGRESS Observed: 05/23/2017 Status: COMPLETED Source: [address] 8:26 AM [facility] REPOSITORY HNO ID: [id number] Author: Brisa Urrutia Service: (none) Author Type: Nurse Practitioner Type: Progress Notes Filed: 05/23/2017 9:02 AM Note Text: Brook Pina is a 57 year old who presents for her annual gynecologic exam with complaints, pain with intercourse. Works at [employer] in [employer]. 6 grandchildren [address] Postmenopausal: last menses 6 months ago lasting 3-4 days HRT use: No. Last Pap: 2013 normal HPV: 2014 negative History of abnormal pap: No Last mammogram: 2018 pending History of abnormal mammogram: Yes biopsy benign Sexually active: Yes Pain with intercourse: Yes Postcoital bleeding: No Hot flashes: Yes Night sweats: Yes Vaginal dryness: Yes Obstetric History T2 L2 SAB0 TAB0 Ectopic0 Multiple0 Live Births0 PAST MEDICAL HISTORY Diagnosis Date - Abdominal pain, epigastric - Arthritis of right hip - Diverticulosis of colon (without mention of hemorrhage) - Dysthymic disorder Depression (non-psychotic) - Internal hemorrhoids without mention of complication PAST SURGICAL HISTORY Procedure Laterality Date - BX OF BREAST; INCISIONAL 1987 Bx of breast, incisional - left nipple - CARPAL TUNNEL 09/13/2015, 10/18/2015 right 09/12, left 10/17 - DELIVERY ONLY , low cervical - COLONOSCOP W/ OR W/O BRSH SPEC 08/18/11 repeat 10 years - EGD W/O OR W/BRUSH/WASH 01/30/2013 EGD - LIGATE FALLOPIAN TUBE Tubal ligation - REMOVAL OF TONSILS,<12 Y/O Tonsillectomy - US BX OF BREAST NEEDLE 2007 Right, benign FAMILY HISTORY Problem Relation Age of Onset - Alcohol/Drug Paternal Grandfather - Allergies Mother - Allergies Sister - Cancer Maternal Grandmother - Colon Cancer Maternal Aunt - Diabetes Brother - Alzheimer's Disease Mother - depression [Other] [OTHER] Sister 2 sisters - depression [Other] [OTHER] Mother - Hypertension Sister - Hypertension Sister - Stroke Mother TIA's - Coronary Artery Disease Maternal Grandfather - Aneurysm Father 84 - Arthritis Maternal side of family SOCIAL HISTORY Social History Substance Use Topics - Smoking status: Former Smoker - Smokeless tobacco: Never Used - Alcohol use 36.0 oz/week Comment: Occasionally REVIEW OF SYSTEMS Abdomen: No abdominal pain, nausea, vomiting, diarrhea, or constipation. No bloating, early satiety, indigestion, or increased flatulence. Bladder: No dysuria, gross hematuria, urinary frequency, urinary urgency, or incontinence. Some stress incontinence Breast: No breast lumps, nipple d/c, overlying skin changes, redness or skin retraction Allergies and current medication updated:Yes EXAM: There were no vitals taken for this visit. GENERAL: pleasant, female in no apparent distress HEENT: Normocephalic, atraumatic, mucus membranes moist and no lesions NECK: Supple, full range of motion, no adenopathy and thyroid normal DERMATOLOGY: Normal, without lesions, non-icteric and non-hirsute BREAST: soft, non-tender, symmetric, no dominant mass, normal nipple-areolar complex, no lymphadenopathy and no nipple discharge CHEST: Normal inspiratory effort ABDOMEN: soft, non-tender and no masses PELVIC: external genitalia normal, normal Bartholin's glands, urethra, Guadalupe Guerra's glands, no vulvar lesions, no cervical lesions, good vaginal support, physiologic discharge present, normal appearing perineal body and perianal region, well estrogenized BIMANUAL: uterus normal size, shape and consistency, no adnexal masses, non-tender and no cervical motion tenderness RECTOVAGINAL: deferred. NEURO: alert and oriented x3,exam grossly non-focal EXTREMITIES: normal ASSESSMENT/PLAN: 1) Health maintenance: Pap done with HPV. Mammogram up to date Nutrition, exercise and routine health maintenance exams reviewed. Calcium/Vitamin D supplementation information provided. 2) Follow up one year or sooner as needed 3) CA 125 ordered per pt request- no family history of ovarian cancer but has a great fear of having it Brisa Urrutia APRN.[facility] SCREENING Observed: 05/23/2017 Status: F Source: [address] 8:18 AM [facility] [place] REPOSITORY * * *Final Report* * * DATE OF EXAM: May 23 2017 8:18AM [place] [id number] - [facility] SCREENING / PROCEDURE REASON: Encounter for screening mammogram for malignant neoplasm of breast * * * * Physician Interpretation * * * * RESULT: #[id number] - [facility] SCREENING BILATERAL DIGITAL SCREENING MAMMOGRAM WITH CAD: 05/23/2017 HISTORY: Encounter For Screening Mammogram For Malignant Neoplasm Of Breast /priors available for comparison. RESULT: TECHNIQUE: The study was acquired using full field digital technology and interpreted from soft copy. Current study was also evaluated with a Computer Aided Detection (CAD). Comparison is made to exams dated: 12/22/2015 mammogram and 11/24/2014 mammogram - [facility]. The tissue of both breasts is heterogeneously dense. This may lower the sensitivity of mammography. There is a biopsy clip in the right breast. No significant masses, calcifications, or other findings are seen in either breast. There has been no significant interval change. IMPRESSION: NEGATIVE There is no mammographic evidence of malignancy.A 1 year screening mammogram is recommended. Mami Aaron M.D., lp/miguel:05/23/2017 11:26:24 [employer] Counselor: Monika YU (R)), [facility] letter sent: Normal over 40 Mammogram BI-RADS: 1 Negative 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: Miguel Transcribe Date/Time: May 23 2017 8:06A Dictated by: MAMI AARON MD This examination was interpreted and the report reviewed and electronically signed by: MAMI AARON MD on May 23 2017 11:26AM EST [id number] Observed: 05/23/2017 Status: COMPLETED Source: [address] 8:15 AM [facility] REPOSITORY Office Visit (WOOB) BROOK PINA ([id number]) 1960 F Date Time Provider Department 05/23/17 8:15 AM BRISA URRUTIA (VIKTOR) LISA During your visit today, we recorded the following information about you: Blood pressure Weight Height Last Period 124/84 66.7 kg 1.543 m 12/25/16 Brisa Urrutia APRN.CNP 05/23/2017 9:02 AM Signed Brook Tompkins Yovani is a 57 year old who presents for her annual gynecologic exam with complaints, pain with intercourse. Works at [employer] in [employer]. 6 grandchildren [address] Postmenopausal: last menses 6 months ago lasting 3-4 days HRT use: No. Last Pap: 2013 normal HPV: 2013 negative History of abnormal pap: No Last mammogram: 2017 pending History of abnormal mammogram: Yes biopsy benign Sexually active: Yes Pain with intercourse: Yes Postcoital bleeding: No Hot flashes: Yes Night sweats: Yes Vaginal dryness: Yes Obstetric History T2 L2 SAB0 TAB0 Ectopic0 Multiple0 Live Births0 PAST MEDICAL HISTORY Diagnosis Date - Abdominal pain, epigastric - Arthritis of right hip - Diverticulosis of colon (without mention of hemorrhage) - Dysthymic disorder Depression (non-psychotic) - Internal hemorrhoids without mention of complication PAST SURGICAL HISTORY Procedure Laterality Date - BX OF BREAST; INCISIONAL 1988 Bx of breast, incisional - left nipple - CARPAL TUNNEL 09/13/2015, 10/18/2015 right 09/12, left 10/17 - DELIVERY ONLY , low cervical - COLONOSCOP W/ OR W/O BRSH SPEC 08/18/11 repeat 10 years - EGD W/O OR W/BRUSH/WASH 01/30/2013 EGD - LIGATE FALLOPIAN TUBE Tubal ligation - REMOVAL OF TONSILS,ANDlt;13 Y/O Tonsillectomy - US BX OF BREAST NEEDLE 2007 Right, benign FAMILY HISTORY Problem Relation Age of Onset - Alcohol/Drug Paternal Grandfather - Allergies Mother - Allergies Sister - Cancer Maternal Grandmother - Colon Cancer Maternal Aunt - Diabetes Brother - Alzheimer's Disease Mother - depression [Other] [OTHER] Sister 2 sisters - depression [Other] [OTHER] Mother - Hypertension Sister - Hypertension Sister - Stroke Mother TIA's - Coronary Artery Disease Maternal Grandfather - Aneurysm Father 84 - Arthritis Maternal side of family SOCIAL HISTORY Social History Substance Use Topics - Smoking status: Former Smoker - Smokeless tobacco: Never Used - Alcohol use 36.0 oz/week Comment: Occasionally REVIEW OF SYSTEMS Abdomen: No abdominal pain, nausea, vomiting, diarrhea, or constipation. No bloating, early satiety, indigestion, or increased flatulence. Bladder: No dysuria, gross hematuria, urinary frequency, urinary urgency, or incontinence. Some stress incontinence Breast: No breast lumps, nipple d/c, overlying skin changes, redness or skin retraction Allergies and current medication updated:Yes EXAM: There were no vitals taken for this visit. GENERAL: pleasant, female in no apparent distress HEENT: Normocephalic, atraumatic, mucus membranes moist and no lesions NECK: Supple, full range of motion, no adenopathy and thyroid normal DERMATOLOGY: Normal, without lesions, non-icteric and non-hirsute BREAST: soft, non-tender, symmetric, no dominant mass, normal nipple-areolar complex, no lymphadenopathy and no nipple discharge CHEST: Normal inspiratory effort ABDOMEN: soft, non-tender and no masses PELVIC: external genitalia normal, normal Bartholin's glands, urethra, Guadalupe Guerra's glands, no vulvar lesions, no cervical lesions, good vaginal support, physiologic discharge present, normal appearing perineal body and perianal region, well estrogenized BIMANUAL: uterus normal size, shape and consistency, no adnexal masses, non-tender and no cervical motion tenderness RECTOVAGINAL: deferred. NEURO: alert and oriented x3,exam grossly non-focal EXTREMITIES: normal ASSESSMENT/PLAN: 1) Health maintenance: Pap done with HPV. Mammogram up to date Nutrition, exercise and routine health maintenance exams reviewed. Calcium/Vitamin D supplementation information provided. 2) Follow up one year or sooner as needed 3) CA 125 ordered per pt request- no family history of ovarian cancer but has a great fear of having it Brisa Urrutia APRN.[facility] 05/31/2017 3:31 PM Signed pap logged, letter sent. Natty Sullivan Psr Referring Provider: HEATHER SIDDIQUI [[id number]] Allergies As of Date: 05/23/2017 Noted Allergy Reaction SEASONAL ALLERGIES 07/11/2011 14 - Other: See Comments Comments: headaches Date Reviewed: 05/23/2017 Reviewed by: Brisa Urrutia - Fully Assessed Reason for Visit: Well Woman [1463] Primary Visit Diagnosis:Encounter for gynecological examination without abnormal finding [Z01.419] Other Visit Diagnoses:Encounter for screening mammogram for malignant neoplasm of breast [Z12.31] Encounter for screening for malignant neoplasm of cervix [Z12.4] Special screening examination for human papillomavirus (HPV) [Z11.51] Patient requested diagnostic testing [Z01.89] Order(s):OSMAN SCREENING [[id number]] Order #: [id number] FUTURE PAP FLUID CERVICAL SCREENING [[id number]] Order #: [id number] #:[id number] CA 125 BLD [[id number]] Order #: [id number] FUTURE HPV W/GENOTYPE [[id number]] Order #: [id number]. #:[id number] Prescriptions as of 05/23/2017 Sig: LORAZEPAM 0.5 MG TABLET Take 1-2 tablets by mouth twi* VENLAFAXINE ER 37.5 MG CAPSUL* Take 1-2 capsules by mouth on* MELATONIN ORAL Take by mouth. Problem List As Of Date 05/23/2017 Noted Resolved BUNION [M21.619] INVALID FOR* Depressive Disorder, not Elsewhere Classified [*INVALID FOR* Family history of abdominal aortic aneurysm [Z8*INVALID FOR* Recurrent cold sores [B00.1] INVALID FOR* PMDD (premenstrual dysphoric disorder) [F32.81] INVALID FOR* Uterine fibroid [D25.9] INVALID FOR* Pelvic pain in female [R10.2] INVALID FOR* Epigastric pain [R10.13] INVALID FOR* Nausea [R11.0] INVALID FOR* Anxiety [F41.9] INVALID FOR* Medications Discontinued During This Encounter methylPREDNISolone (MEDROL, ADDI,) 4 * 1 Pa* 0 04/09/2017 05/23/2017 Sig: Take as directed Disc: Reason for discontinue is not on file. Disposition: Return in 1 year (on 05/23/2018) for Annual Exam. Follow-up and Disposition History Recorded Letter Text Brisa Urrutia CNP [facility] [address] [place], [place] [address] Brook Pina [address] [place] [id number] 05/31/2017 [facility]: [id number] Dear Brook, We are pleased to inform you that your recent Pap Test was within normal limits. Because Pap tests are so effective in the early detection of cervical cancer, you are encouraged to continue having the test at regular intervals. You will be due for a 1 year Gynecological Exam after this date 05/23/2018. If you have any questions regarding the above information, do not hesitate to call our office at between the hours of 8:00 a.m. and 5:00 p.m. Sincerely, Brisa Urrutia CNP Encounter Status:Closed by BRISA URRUTIA on 05/23/17 PROCEDURE Observed: 05/23/2017 Status: COMPLETED Source: [address] 8:04 AM [facility] REPOSITORY HNO ID: [id number] Author: Monika (RtArturo Alexander Service: (none) Author Type: Net Developer Consultant Type: Procedures Filed: 05/23/2017 8:19 AM Note Text: Radiology Service Progress Note PATIENT NAME: Brook Pina DATE OF SERVICE: May 23, 2017 TIME: 8:05 AM PATIENT IDENTITY VERIFICATION COMPLETED USING TWO (2) METHODS: Patient confirmed name verbally and Date of . PATIENT GENDER DATA: Female. status: : No status: NO. PATIENT RELEVANT IMPLANT DATA REVIEWED: Not Applicable RADIOLOGY DEPARTMENT: [facility] PERIPHERAL IV DATA: Not applicable SIGNED BY: RT Julianna May 23, 2017 8:05 AM PROGRESS Observed: 05/15/2017 Status: COMPLETED Source: [address] 8:22 AM [facility] REPOSITORY HNO ID: [id number] Author: Arturo Paul (Rt) Service: (none) Author Type: Net Developer Consultant Type: Progress Notes Filed: 05/15/2017 8:23 AM Note Text: Radiology Service Progress Note PATIENT NAME: Brook Pina DATE OF SERVICE: May 15, 2017 TIME: 8:22 AM PATIENT IDENTITY VERIFICATION COMPLETED USING TWO (2) METHODS: Patient confirmed name verbally and Date of . PATIENT GENDER DATA: Female. status: : No status: NO. PATIENT RELEVANT IMPLANT DATA REVIEWED: Yes RADIOLOGY DEPARTMENT: MR; Exam(s) Completed: Lower MSK: Forefoot/Midfoot, left PERIPHERAL IV DATA: Not applicable SIGNED BY: RT Beverly May 15, 2017 8:22 AM MRI FOOT/TOES WO IVCON Observed: 05/15/2017 Status: F Source: [facility] 8:19 AM [facility] REPOSITORY * * *Final Report* * * DATE OF EXAM: May 15 2017 8:19AM [facility] 0194 - MRI FOOT/TOES WO IVCON LT / PROCEDURE REASON: Unspecified injury of left lower leg, initial encounter * * * * Physician Interpretation * * * * HISTORY: Unspecified injury of left lower leg, initial encounter . Suspect plantar plate tear of left 2nd lateral mtpj. Lt foot pain plantar surface of 2nd toe/distal mt x several months TECHNIQUE: Routine MRI of the left forefoot without contrast COMPARISON: None RESULT: Bone Marrow: Mild degenerative edema is present in the medial hallux sesamoid. There is no evidence of fracture, osteomyelitis or marrow-replacing lesion. Cartilage: There is severe first MTP osteoarthritis, with high-grade cartilage loss throughout the joint, and small osteophytes and few small subchondral cysts. There is mild first tarsometatarsal osteoarthritis. Tendons: Flexor and extensor tendons are within normal limits. Plantar Plates: There is degeneration and tearing of the second metatarsal phalangeal joint lateral plantar plate. The medial plantar plate is intact in this joint. Additionally, there is some adventitial edema along the plantar aspect of the second and third toe fat pad near the metatarsophalangeal joints. The remaining plantar plates in the third through fifth toes are intact. There are degenerative changes at the sesamoids at the first MTP, with edema in the medial hallux sesamoid, although the first plantar plate is overall intact.. Joint Fluid: No significant joint effusion. Intermetatarsal Spaces: There is an approximately 6 mm round soft tissue mass between second and third metatarsal heads on the plantar side suggestive of a Miranda's neuroma. There is intermetatarsal bursitis at the first intermetatarsal space (series 9/image 13). Lisfranc Ligament: Intact. Plantar Aponeurosis: Visualized portions of the plantar aponeurosis in within normal limits. Muscles: Muscle bulk and signal intensity are within normal limits. IMPRESSION: 1. Degeneration and tearing of the second metatarsophalangeal joint lateral plantar plate. The medial plantar plate is intact. 2. First intermetatarsal space bursitis. Mild plantar adventitial edema at the second and third metatarsophalangeal joints and small Miranda's neuroma at the second metatarsal interspace. 3. Severe first metatarsophalangeal joint osteoarthritis and hallux sesamoid complex degenerative changes. 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: DAVID Transcribe Date/Time: May 15 2017 9:07A Dictated by : DAIN CHRISTOPHER MD This examination was interpreted and the report reviewed and electronically signed by: BRAEDEN BYRNES MD on May 16 2017 3:47PM EST [id number] PROGRESS Observed: 05/01/2017 Status: COMPLETED Source: [address] 7:55 AM [facility] REPOSITORY HNO ID: [id number] Author: Scooter Bolton Service: (none) Author Type: Physician Type: Progress Notes Filed: 05/01/2017 8:11 AM Note Text: Follow up podiatric office visit for: Chief Complaint: This 57 year old who presents for follow up:left foot pain. Patient continues to have pain to the plantar aspect of left 2nd mtpj. She has tried oral steroid, taping of the toe and use of inserts. She has done this since her last appointment 3 weeks ago. She states the oral steroid did help but she is still having pain. She states the longer she is on her foot, there is still pain. She still has pain primarily to the plantar aspect of left 2nd mtpj. She states the pain is usually 3/10 but when it is really bad, it can be 7-8/10. She has no other complaints. PAIN EVALUATION 05/01/2017 Pain Score: 3 Pain Location: Toe Description: Aching;Burning;Stabbing Duration Amount of Time: 3 Duration Units: Weeks Frequency: Intermittent Intervention: Other: See comment Comments: some relief with OTC gel inserts No results found for: HBA1C PCP: Heather Siddiqui MD PAST MEDICAL HISTORY Diagnosis Date - Abdominal pain, epigastric - Arthritis of right hip - Diverticulosis of colon (without mention of hemorrhage) - Dysthymic disorder Depression (non-psychotic) - Internal hemorrhoids without mention of complication Current Outpatient Prescriptions: LORazepam (ATIVAN) 0.5 mg tab Take 1-2 tablets by mouth twice daily as needed for up to 90 days. venlafaxine ER (EFFEXOR XR) 37.5 mg 24 hr capsule Take 1-2 capsules by mouth once daily. MELATONIN ORAL Take by mouth. methylPREDNISolone (MEDROL, ADDI,) 4 mg Dose-Pack Take as directed No current facility-administered medications for this visit. ALLERGIES Allergen Reactions - Seasonal Allergies Other: See Comments headaches PAST SURGICAL HISTORY Procedure Laterality Date - BX OF BREAST; INCISIONAL 1988 Bx of breast, incisional - left nipple - CARPAL TUNNEL 09/13/2015, 10/18/2015 right 09/12, left 10/17 - DELIVERY ONLY , low cervical - COLONOSCOP W/ OR W/O [facility] SPEC 08/18/11 repeat 10 years - EGD W/O OR W/BRUSH/WASH 01/30/2013 EGD - LIGATE FALLOPIAN TUBE Tubal ligation - REMOVAL OF TONSILS,<12 Y/O Tonsillectomy - US BX OF BREAST NEEDLE 2008 Right, benign Physical Exam: Constitutional: Pt is a well developed 57 year old female who is alert, oriented, cooperative and in no apparent distress. OBJECTIVE: NVSI unchanged from previous visit. Dermatological: Nails 1-5 b/l are normal. Webspaces clean and dry 1-4 b/l. Skin appears well hydrated and supple. good color, texture, turgor. No open lesions present. No callosities present. Musculoskeletal/Orthopaedic: Patient has pain to palpation of plantar left 2nd mtpj. No pain with palpation of left 2nd interspace Curly toes are noted to left 3rd and left 4th toe There is medial drift of left 2nd toe No hallux valgus deformity noted ASSESSMENT: (S89.92XA) Plantar plate injury, left, initial encounter (primary encounter diagnosis) PLAN: 1. History and physical examination completed today. 2. Discussed ongoing pain of left 2nd mtpj. She has tried taping, inserts, and oral steroid since last evaluation approximately 3 weeks ago. Although the pain has lessened to a degree, it is still present and worse with prolonged standing. There is medial drift of 2nd toe and I suspect component of plantar plate tear. I recommend mri to further access. I do not believe taping to be ocean transportation intermediary solution nor do I feel therapy will help with her pain and deformity. I feel mri is necessary for further treatment of this patient. 3. I did discuss injection of left 2nd mtpj. While this may help with her pain, if there is tear of the ligament, it could cause further injury so I would hold on this in favor of mri. 4. She will continue with nsaids, taping and inserts. 5. Will notify her of results following mri. ANTONY DonaldOV Observed: 05/01/2017 Status: COMPLETED Source: [address] 7:40 AM [facility] REPOSITORY Office Visit (PODIWS) BROOK PINA ([id number]) 1960 F Date Time Provider Department 05/01/17 7:40 AM SCOOTER BOLTON During your visit today, we recorded the following information about you: Scooter Bolton DPM 05/01/2017 8:11 AM Signed Follow up podiatric office visit for: Chief Complaint: This 57 year old who presents for follow up:left foot pain. Patient continues to have pain to the plantar aspect of left 2nd mtpj. She has tried oral steroid, taping of the toe and use of inserts. She has done this since her last appointment 3 weeks ago. She states the oral steroid did help but she is still having pain. She states the longer she is on her foot, there is still pain. She still has pain primarily to the plantar aspect of left 2nd mtpj. She states the pain is usually 3/10 but when it is really bad, it can be 7-8/10. She has no other complaints. PAIN EVALUATION 05/01/2017 Pain Score: 3 Pain Location: Toe Description: Aching;Burning;Stabbing Duration Amount of Time: 3 Duration Units: Weeks Frequency: Intermittent Intervention: Other: See comment Comments: some relief with OTC gel inserts No results found for: HBA1C PCP: Heather Siddiqui MD PAST MEDICAL HISTORY Diagnosis Date - Abdominal pain, epigastric - Arthritis of right hip - Diverticulosis of colon (without mention of hemorrhage) - Dysthymic disorder Depression (non-psychotic) - Internal hemorrhoids without mention of complication Current Outpatient Prescriptions: LORazepam (ATIVAN) 0.5 mg tab Take 1-2 tablets by mouth twice daily as needed for up to 90 days. venlafaxine ER (EFFEXOR XR) 37.5 mg 24 hr capsule Take 1-2 capsules by mouth once daily. MELATONIN ORAL Take by mouth. methylPREDNISolone (MEDROL, ADDI,) 4 mg Dose-Pack Take as directed No current facility-administered medications for this visit. ALLERGIES Allergen Reactions - Seasonal Allergies Other: See Comments headaches PAST SURGICAL HISTORY Procedure Laterality Date - BX OF BREAST; INCISIONAL 1988 Bx of breast, incisional - left nipple - CARPAL TUNNEL 09/13/2015, 10/18/2015 right 09/12, left 10/17 - DELIVERY ONLY , low cervical - COLONOSCOP W/ OR W/O [facility] SPEC 08/18/11 repeat 10 years - EGD W/O OR W/BRUSH/WASH 01/30/2013 EGD - LIGATE FALLOPIAN TUBE Tubal ligation - REMOVAL OF TONSILS,ANDlt;13 Y/O Tonsillectomy - US BX OF BREAST NEEDLE 2008 Right, benign Physical Exam: Constitutional: Pt is a well developed 57 year old female who is alert, oriented, cooperative and in no apparent distress. OBJECTIVE: NVSI unchanged from previous visit. Dermatological: Nails 1-5 b/l are normal. Webspaces clean and dry 1-4 b/l. Skin appears well hydrated and supple. good color, texture, turgor. No open lesions present. No callosities present. Musculoskeletal/Orthopaedic: Patient has pain to palpation of plantar left 2nd mtpj. No pain with palpation of left 2nd interspace Curly toes are noted to left 3rd and left 4th toe There is medial drift of left 2nd toe No hallux valgus deformity noted ASSESSMENT: (S89.92XA) Plantar plate injury, left, initial encounter (primary encounter diagnosis) PLAN: 1. History and physical examination completed today. 2. Discussed ongoing pain of left 2nd mtpj. She has tried taping, inserts, and oral steroid since last evaluation approximately 3 weeks ago. Although the pain has lessened to a degree, it is still present and worse with prolonged standing. There is medial drift of 2nd toe and I suspect component of plantar plate tear. I recommend mri to further access. I do not believe taping to be ocean transportation intermediary solution nor do I feel therapy will help with her pain and deformity. I feel mri is necessary for further treatment of this patient. 3. I did discuss injection of left 2nd mtpj. While this may help with her pain, if there is tear of the ligament, it could cause further injury so I would hold on this in favor of mri. 4. She will continue with nsaids, taping and inserts. 5. Will notify her of results following mri. ANTONY Donald Ma 05/01/2017 8:09 AM Signed Please schedule MRI - we will call with results and follow up Ruby rivera L 2nd and 3rd toe together with Heidi Referring Provider: SCOOTER BOLTON [[id number]] Allergies As of Date: 05/01/2017 Noted Allergy Reaction SEASONAL ALLERGIES 07/11/2011 14 - Other: See Comments Comments: headaches Date Reviewed: 05/01/2017 Reviewed by: Jeffrey Hayes Ma - Fully Assessed Reason for Visit: Follow Up [171] Primary Visit Diagnosis:Plantar plate injury, left, initial encounter [S89.92XA] Order(s):MRI FOOT/TOES RENY MARCIAL LT [[id number]] Order #: [id number] FUTURE Prescriptions as of 05/01/2017 Sig: LORAZEPAM 0.5 MG TABLET Take 1-2 tablets by mouth twi* VENLAFAXINE ER 37.5 MG CAPSUL* Take 1-2 capsules by mouth on* MELATONIN ORAL Take by mouth. METHYLPREDNISOLONE 4 MG TABLE* Take as directed Medication notes this encounter METHYLPREDNISOLONE 4 MG TABLETS IN A DOSE PACK >> Jeffrey Hayes Ma 05/01/2017 7:40 AM >> JEFFREY HAYES MA May 01, 2017 7:40 AM Course completed. Please d/c Problem List As Of Date 05/01/2017 Noted Resolved BUNION [M21.619] INVALID FOR* Depressive Disorder, not Elsewhere Classified [*INVALID FOR* Family history of abdominal aortic aneurysm [Z8*INVALID FOR* Recurrent cold sores [B00.1] INVALID FOR* PMDD (premenstrual dysphoric disorder) [F32.81] INVALID FOR* Uterine fibroid [D25.9] INVALID FOR* Pelvic pain in female [R10.2] INVALID FOR* Epigastric pain [R10.13] INVALID FOR* Nausea [R11.0] INVALID FOR* Anxiety [F41.9] INVALID FOR* Other instructions from your clinician: Please schedule MRI - we will call with results and follow up Ruby miguel Crowe 2nd and 3rd toe together with Heidi Encounter Status:Closed by SCOOTER BOLTON DPM on 05/01/17 CNOV Observed: 04/09/2017 Status: COMPLETED Source: [address] 8:10 AM [facility] REPOSITORY Office Visit (PODIWS) BROOK PINA ([id number]) 1960 F Date Time Provider Department 04/09/17 8:10 AM SCOOTER BOLTON HEIKE During your visit today, we recorded the following information about you: Scooter BoltonANTONY 04/10/2017 5:42 AM Signed Consultation requested by Dr. Siddiqui for an opinion regarding left foot pain. My final recommendations will be communicated back to the requesting physician by way of shared Medical record or letter to requesting physician via US mail. Initial Podiatric Office Visit: Chief Complaint: This 57 year old female who presents with chief complaint:left foot pain HPI Patient presents to clinic for evaluation of pain of left foot. She has pain to the ball of 2nd interspace of left foot x 3 months. She denies any injury. She states the pain varies and feels that she is stepping on a piece of glass. She states the pain is 1-8/10 and is worse the longer she is on her foot. She has tried naprosyn which has helped. She has tried otc pads which has not helped. She has xrays to review. PAIN EVALUATION 04/09/2017 Pain Score: 1 1-8/10 Pain Location: Foot-Left Description: Sharp Duration Amount of Time: 3 Duration Units: Months Frequency: Continuous Intervention: Relaxation;Reposition No results found for: HBA1C PCP: Heather Siddiqui MD PAST MEDICAL HISTORY Diagnosis Date - Abdominal pain, epigastric - Arthritis of right hip - Diverticulosis of colon (without mention of hemorrhage) - Dysthymic disorder Depression (non-psychotic) - Internal hemorrhoids without mention of complication Current Outpatient Prescriptions: LORazepam (ATIVAN) 0.5 mg tab Take 1-2 tablets by mouth twice daily as needed for up to 90 days. venlafaxine ER (EFFEXOR XR) 37.5 mg 24 hr capsule Take 1-2 capsules by mouth once daily. MELATONIN ORAL Take by mouth. No current facility-administered medications for this visit. ALLERGIES Allergen Reactions - Seasonal Allergies Other: See Comments headaches PAST SURGICAL HISTORY Procedure Laterality Date - BX OF BREAST; INCISIONAL 1988 Bx of breast, incisional - left nipple - CARPAL TUNNEL 09/13/2015, 10/18/2015 right 09/12, left 10/17 - DELIVERY ONLY , low cervical - COLONOSCOP W/ OR W/O [facility] SPEC 08/18/11 repeat 10 years - EGD W/O OR W/BRUSH/WASH 01/30/2013 EGD - LIGATE FALLOPIAN TUBE Tubal ligation - REMOVAL OF TONSILS,ANDlt;13 Y/O Tonsillectomy - US BX OF BREAST NEEDLE 2008 Right, benign FAMILY HISTORY Problem Relation Age of Onset - Alcohol/Drug Paternal Grandfather - Allergies Mother - Allergies Sister - Cancer Maternal Grandmother - Colon Cancer Maternal Aunt - Diabetes Brother - Alzheimer's Disease Mother - depression [Other] [OTHER] Sister 2 sisters - depression [Other] [OTHER] Mother - Hypertension Sister - Hypertension Sister - Stroke Mother TIA's - Coronary Artery Disease Maternal Grandfather - Aneurysm Father 84 - Arthritis Maternal side of family Social History Marital status: Spouse name: Jammie Years of education: Number of children: 2 Occupational History Occupation Employer Comment Social History Main Topics Smoking status: Former Smoker Packs/day: 0.00 Years: 0.00 Smokeless status: Never Used Alcohol use: Yes 36.0 oz/week Comment: Occasionally Drug use: No Sexual activity: Yes Partners with: Male control/protection: Tubal Ligation REVIEW OF SYSTEMS GENERAL: Negative for Malaise, significant weight loss, fever RESPIRATORY: Negative for cough, wheezing and shortness of breath CARDIOVASCULAR: Negative for chest pain, leg swelling and palpitations GI: Negative for abdominal discomfort, blood in stools or black stools and change in bowel habits : Negative for dysuria, frequency and incontinence MUSCULOSKELETAL: positive for left foot pain SKIN: Negative for lesions, rash, and itching. HEMATOLOGY/LYMPHOLOGY Negative for prolonged bleeding, bruising easily, and swollen nodes. ENDOCRINE: Negative for cold or heat intolerance, polyuria, polydipsia and goiter. NEURO: negative Physical Exam: Constitutional: Pt is a well developed 57 year old female who is alert, oriented and cooperative Eyes: Following during examination. No redness or drainage. Respiratory: RR normal and nonlabored. Even breathing. No evidence of distress or shortness of breath. Psychology: Patient is engaged during conversation. Normal affect and mood. Does not appear depressed or anxious during encounter. Vascular: Dorsalis pedis and posterior tibial pulses palpable as b/l Capillary Fill time ANDlt; 5 seconds to digits 1-5 b/l Skin temperature warm to warm proximal to distal b/l Hair growth present to digits Neurological: intact light touch/epicritic sensation Vibratory sensation intact to hallux b/l intact protective sensation no significant neurological deficits Dermatological: Nails 1-5 b/l appear normal. Webspaces clean and dry 1-4 b/l. Skin appears well hydrated and supple. good color, texture, turgor. No open lesions present. No callosities present. Musculoskeletal/Orthopaedic: Patient has pain to palpation of left 2nd metatarsal head plantar aspect. There is pain to left 2nd interspace The left 2nd toe appears to be drifting medially Foot type is pronated structurally AJ ROM is full with knee extended and flexed 1st MPJ is decreased left when loaded and no pain or crepitus are noted with ROM. MTJ, STJ are full and free of pain and crepitus. +5/5 muscle strength dorsiflexion, plantarflexion, inversion, eversion b/l Radiographs: 3 views left foot ordered April 09, 2017: I have personally reviewed and interpreted these XR myself: There appears to be dorsal spurring of left 1st metatarsal head. There is slight medial drift of left 2nd toe ASSESSMENT: (S89.92XA) Plantar plate injury, left, initial encounter (primary encounter diagnosis) (M79.672) Pain in left foot neuroma PLAN: 1. History and physical examination performed. 2. XR reviewed with patient and interpreted today 3. Discussed pain of left foot. Discussed etiology of pain being that of chronic plantar plate injury, capsulitis vs neuroma. She has pain to both 2nd interspace and 2nd metatarsal head, but more pain to plantar 2nd metatarsal head which makes me concerned given appearance of toe of plantar plate injury. Recommend taping of toe, use of gel foam for cushion, use of oral steroid. If pain does not improve with these options, I would consider injection of 2nd mtpj vs 2nd interspace but would favor getting mri prior to evaluate for any possible plantar plate tear 4. F/u in 3 weeks ANTONY Donald Ma 04/09/2017 8:25 AM Signed Oral steroid sent to pharmacy Can get gel insert over the counter Tape toe as demonstrated by Dr. Bolton in office today Follow up in 3 weeks Referring Provider: HEATHER SIDDIQUI [[id number]] Allergies As of Date: 04/09/2017 Noted Allergy Reaction SEASONAL ALLERGIES 07/11/2011 14 - Other: See Comments Comments: headaches Date Reviewed: 04/09/2017 Reviewed by: Elisa Weeks RN - Fully Assessed Reason for Visit: New Patient [172] Cmt: left foot pain Primary Visit Diagnosis:Plantar plate injury, left, initial encounter [S89.92XA] Other Visit Diagnosis:Pain in left foot [M79.672] Order(s):methylPREDNISolone (MEDROL, ADDI,) 4 mg Dose-PackTake as directedDisp: 1 PackageRfl: 0 Prescriptions as of 04/09/2017 Sig: LORAZEPAM 0.5 MG TABLET Take 1-2 tablets by mouth twi* VENLAFAXINE ER 37.5 MG CAPSUL* Take 1-2 capsules by mouth on* MELATONIN ORAL Take by mouth. METHYLPREDNISOLONE 4 MG TABLE* Take as directed Problem List As Of Date 04/09/2017 Noted Resolved BUNION [M21.619] INVALID FOR* Depressive Disorder, not Elsewhere Classified [*INVALID FOR* Family history of abdominal aortic aneurysm [Z8*INVALID FOR* Recurrent cold sores [B00.1] INVALID FOR* PMDD (premenstrual dysphoric disorder) [F32.81] INVALID FOR* Uterine fibroid [D25.9] INVALID FOR* Pelvic pain in female [R10.2] INVALID FOR* Epigastric pain [R10.13] INVALID FOR* Nausea [R11.0] INVALID FOR* Anxiety [F41.9] INVALID FOR* Other instructions from your clinician: Oral steroid sent to pharmacy Can get gel insert over the counter Tape toe as demonstrated by Dr. Bolton in office today Follow up in 3 weeks Prescriptions ordered this encounter Disp Refills Start End METHYLPREDNISOLONE 4 MG TABLETS IN A* 1 Pa* 0 04/09/2017 Sig: Take as directed Disposition: Return in about 3 weeks (around 04/30/2017) for L foot. Follow-up and Disposition History Recorded Encounter Status:Closed by SCOOTER BOLTON DPM on 04/10/17 PROGRESS Observed: 04/09/2017 Status: COMPLETED Source: [address] 8:08 AM [facility] [place] REPOSITORY O ID: [id number] Author: Scooter Bolton Service: (none) Author Type: Physician Type: Progress Notes Filed: 04/10/2017 5:42 AM Note Text: Consultation requested by Dr. Siddiqui for an opinion regarding left foot pain. My final recommendations will be communicated back to the requesting physician by way of shared Medical record or letter to requesting physician via [place] mail. Initial Podiatric Office Visit: Chief Complaint: This 57 year old female who presents with chief complaint:left foot pain HPI Patient presents to clinic for evaluation of pain of left foot. She has pain to the ball of 2nd interspace of left foot x 3 months. She denies any injury. She states the pain varies and feels that she is stepping on a piece of glass. She states the pain is 1-8/10 and is worse the longer she is on her foot. She has tried naprosyn which has helped. She has tried otc pads which has not helped. She has xrays to review. PAIN EVALUATION 04/09/2017 Pain Score: 1 1-8/10 Pain Location: Foot-Left Description: Sharp Duration Amount of Time: 3 Duration Units: Months Frequency: Continuous Intervention: Relaxation;Reposition No results found for: HBA1C PCP: Heather Siddiqui MD PAST MEDICAL HISTORY Diagnosis Date - Abdominal pain, epigastric - Arthritis of right hip - Diverticulosis of colon (without mention of hemorrhage) - Dysthymic disorder Depression (non-psychotic) - Internal hemorrhoids without mention of complication Current Outpatient Prescriptions: LORazepam (ATIVAN) 0.5 mg tab Take 1-2 tablets by mouth twice daily as needed for up to 90 days. venlafaxine ER (EFFEXOR XR) 37.5 mg 24 hr capsule Take 1-2 capsules by mouth once daily. MELATONIN ORAL Take by mouth. No current facility-administered medications for this visit. ALLERGIES Allergen Reactions - Seasonal Allergies Other: See Comments headaches PAST SURGICAL HISTORY Procedure Laterality Date - BX OF BREAST; INCISIONAL 1988 Bx of breast, incisional - left nipple - CARPAL TUNNEL 09/13/2015, 10/18/2015 right 09/12, left 10/17 - DELIVERY ONLY , low cervical - COLONOSCOP W/ OR W/O [facility] SPEC 08/18/11 repeat 10 years - EGD W/O OR W/BRUSH/WASH 01/30/2013 EGD - LIGATE FALLOPIAN TUBE Tubal ligation - REMOVAL OF TONSILS,<12 Y/O Tonsillectomy - US BX OF BREAST NEEDLE 2007 Right, benign FAMILY HISTORY Problem Relation Age of Onset - Alcohol/Drug Paternal Grandfather - Allergies Mother - Allergies Sister - Cancer Maternal Grandmother - Colon Cancer Maternal Aunt - Diabetes Brother - Alzheimer's Disease Mother - depression [Other] [OTHER] Sister 2 sisters - depression [Other] [OTHER] Mother - Hypertension Sister - Hypertension Sister - Stroke Mother TIA's - Coronary Artery Disease Maternal Grandfather - Aneurysm Father 84 - Arthritis Maternal side of family Social History Marital status: Spouse name: Jammie Years of education: Number of children: 2 Occupational History Occupation Employer Comment Social History Main Topics Smoking status: Former Smoker Packs/day: 0.00 Years: 0.00 Smokeless status: Never Used Alcohol use: Yes 36.0 oz/week Comment: Occasionally Drug use: No Sexual activity: Yes Partners with: Male control/protection: Tubal Ligation REVIEW OF SYSTEMS GENERAL: Negative for Malaise, significant weight loss, fever RESPIRATORY: Negative for cough, wheezing and shortness of breath CARDIOVASCULAR: Negative for chest pain, leg swelling and palpitations GI: Negative for abdominal discomfort, blood in stools or black stools and change in bowel habits : Negative for dysuria, frequency and incontinence MUSCULOSKELETAL: positive for left foot pain SKIN: Negative for lesions, rash, and itching. HEMATOLOGY/LYMPHOLOGY Negative for prolonged bleeding, bruising easily, and swollen nodes. ENDOCRINE: Negative for cold or heat intolerance, polyuria, polydipsia and goiter. NEURO: negative Physical Exam: Constitutional: Pt is a well developed 57 year old female who is alert, oriented and cooperative Eyes: Following during examination. No redness or drainage. Respiratory: RR normal and nonlabored. Even breathing. No evidence of distress or shortness of breath. Psychology: Patient is engaged during conversation. Normal affect and mood. Does not appear depressed or anxious during encounter. Vascular: Dorsalis pedis and posterior tibial pulses palpable as b/l Capillary Fill time < 5 seconds to digits 1-5 b/l Skin temperature warm to warm proximal to distal b/l Hair growth present to digits Neurological: intact light touch/epicritic sensation Vibratory sensation intact to hallux b/l intact protective sensation no significant neurological deficits Dermatological: Nails 1-5 b/l appear normal. Webspaces clean and dry 1-4 b/l. Skin appears well hydrated and supple. good color, texture, turgor. No open lesions present. No callosities present. Musculoskeletal/Orthopaedic: Patient has pain to palpation of left 2nd metatarsal head plantar aspect. There is pain to left 2nd interspace The left 2nd toe appears to be drifting medially Foot type is pronated structurally AJ ROM is full with knee extended and flexed 1st MPJ is decreased left when loaded and no pain or crepitus are noted with ROM. MTJ, STJ are full and free of pain and crepitus. +5/5 muscle strength dorsiflexion, plantarflexion, inversion, eversion b/l Radiographs: 3 views left foot ordered April 09, 2017: I have personally reviewed and interpreted these XR myself: There appears to be dorsal spurring of left 1st metatarsal head. There is slight medial drift of left 2nd toe ASSESSMENT: (S89.92XA) Plantar plate injury, left, initial encounter (primary encounter diagnosis) (M79.672) Pain in left foot neuroma PLAN: 1. History and physical examination performed. 2. XR reviewed with patient and interpreted today 3. Discussed pain of left foot. Discussed etiology of pain being that of chronic plantar plate injury, capsulitis vs neuroma. She has pain to both 2nd interspace and 2nd metatarsal head, but more pain to plantar 2nd metatarsal head which makes me concerned given appearance of toe of plantar plate injury. Recommend taping of toe, use of gel foam for cushion, use of oral steroid. If pain does not improve with these options, I would consider injection of 2nd mtpj vs 2nd interspace but would favor getting mri prior to evaluate for any possible plantar plate tear 4. F/u in 3 weeks Scooter Bolton DPM COMP METABOLIC PANEL Collected: 04/07/2017 Status: F Source: [address] 7:40 AM [facility] REPOSITORY TYPE CODE TESTS RESULT OUT OF REFERENCE UNITS RANGE LAB TP 6.3-8.0 g/dL Protein, Total 7.1 LAB ALB 3.9-4.9 g/dL Albumin 4.5 LAB CA 8.5-10.2 mg/dL Calcium, Total 9.0 LAB TBIL 0.2-1.3 mg/dL Bilirubin, Total 0.4 LAB ALKP 32-117 U/L Alkaline Phosphatase 59 LAB AST 13-35 U/L AST 21 LAB GLU 74-99 mg/dL Glucose 87 Result Comment: The [place] Diabetes Association (ADA) provides guidance for cutoff values for fasting glucose and random glucose. The ADA defines fasting as no caloric intake for at least 8 hours. Fas ting plasma glucose results between 100 to 125 mg/dL indicate increased risk for diabetes (prediabetes). Fasting plasma glucose results greater than or equal to 126 mg/dL meet the criteria for diagnosis of diabetes. In the absence of unequivocal hyperglycemia, results should be confirmed by repeat testing. In a patient with classic symptoms of hyperglycemia or hyperglycemic crisis, random plasma glucose results greater than or equal to 200 mg/dL meet the criteria for diagnosis of diabetes. Reference: Standards of Medical Care in Diabetes 2016, [place] [employer] Association. Diabetes Care. 2016.39(Suppl 1). LAB BUN 7-21 mg/dL BUN 12 LAB CRET 0.58-0.96 mg/dL Creatinine 0.75 LAB NA 136-144 mmol/L Sodium 141 LAB K 3.7-5.1 mmol/L Potassium 4.3 LAB CL 97-105 mmol/L Chloride 101 LAB CO2 22-30 mmol/L CO2 25 LAB AGAP 9-18 mmol/L Anion Gap 15 LAB ALT 7-38 U/L ALT 20 LAB GFRAA eGFR- Amer. >60 LAB GFRNAA . eGFR-All Other Races >60 Result Comment: eGFR (Estimated GFR) Units of measure: mL/min/1.73 meters squared eGFR is derived from the reexpressed MDRD Study equation using the following parameters: serum creatinine, age, gender and race. The creatinine assay has been calibrated to be traceable to IDMS. An eGFR <60 mL/min/1.73m2 for >3 months is consistent with chronic kidney disease. Refer to KDOQI guidelines for clinical interpretation. In patients with unstable renal function, e.g. those with acute kidney injury, the eGFR may not accurately reflect actual GFR. Performed By: #### CMP, TSH #### [facility] [address] [place], [place] [address] TSH Collected: 04/07/2017 Status: F Source: [address] 7:40 AM [facility] REPOSITORY TYPE CODE TESTS RESULT OUT OF RANGE REFERENCE UNITS LAB TSH 0.400-5.500 uU/mL TSH 3.030 Performed By: #### CMP, TSH #### [facility] [address] [place], [place] [address] XR FOOT 3V AP/LAT/OBL Observed: 04/02/2017 Status: F Source: [facility] 11:08 AM [facility] REPOSITORY * * *Final Report* * * DATE OF EXAM: Apr 02 2017 11:08AM WOX [id number] - XR FOOT 3V AP/LAT/OBL LT / PROCEDURE REASON: Pain in left foot * * * * Physician Interpretation * * * * LEFT FOOT TECHNIQUE: AP, lateral, oblique views of the foot of interest: 3 images HISTORY: Pain COMPARISON: none RESULT: Details in impression IMPRESSION: Mild midfoot sag. Small subchondral cysts in the first metatarsal head. Otherwise unremarkable. 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: [employer] Transcribe Date/Time: Apr 02 2017 11:41A Dictated by : SANCHO ARVIZU MD This examination was interpreted and the report reviewed and electronically signed by: SANCHO ARVIZU MD on Apr 02 2017 11:42AM EST [id number] PROGRESS Observed: 04/02/2017 Status: COMPLETED Source: [address] 11:00 AM [facility] REPOSITORY HNO ID: [id number] Author: Denise WisemanRtArturo Riley Service: (none) Author Type: Net Developer Consultant Type: Progress Notes Filed: 04/02/2017 11:08 AM Note Text: Radiology Service Progress Note PATIENT NAME: Brook Pina DATE OF SERVICE: April 02, 2017 TIME: 11:00 AM PATIENT IDENTITY VERIFICATION COMPLETED USING TWO (2) METHODS: Patient confirmed name verbally and Date of . PATIENT GENDER DATA: Female. status: : No status: NO. PATIENT RELEVANT IMPLANT DATA REVIEWED: Not Applicable RADIOLOGY DEPARTMENT: General X-ray: Exam(s) Completed: Lower Extremity X-Ray(s): Foot, Left: PERIPHERAL IV DATA: Not applicable SIGNED BY: RT Ubaldo April 02, 2017 11:00 AM PROGRESS Observed: 04/02/2017 Status: COMPLETED Source: [address] 10:22 AM [facility] REPOSITORY HNO ID: [id number] Author: Heather Siddiqui Service: (none) Author Type: Physician Type: Progress Notes Filed: 04/02/2017 10:49 AM Note Text: Chief Complaint Patient presents with: Musculoskeletal Problem: left foot pain trouble swallowing HPI Brook Pina is a 57 year old female who presents here today for foot pain, dysphagia.. Left foot pain: several months; tried stretching, loosening shoes. 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 Has tried padding without help. Dysphagia: feels like food gets stuck sometimes; choking. Some mid-chest discomfort at couple of times. Would like to be checked for DM; has gained weight, some dizziness; fatigue, sore throat. Anxiety: on effexor xr 37.5 mg daily; not fully controlled. Also uses ativan prn, mainly to help sleep. Past medical history, appointments, medications, allergies reviewed. Previous Medical History PAST MEDICAL HISTORY Diagnosis Date - Abdominal pain, epigastric - Arthritis of right hip - Diverticulosis of colon (without mention of hemorrhage) - Dysthymic disorder Depression (non-psychotic) - Internal hemorrhoids without mention of complication Previous Surgical History PAST SURGICAL HISTORY Procedure Laterality Date - BX OF BREAST; INCISIONAL 1988 Bx of breast, incisional - left nipple - CARPAL TUNNEL 09/13/2015, 10/18/2015 right 09/12, left 10/17 - DELIVERY ONLY , low cervical - COLONOSCOP W/ OR W/O [facility] SPEC 08/18/11 repeat 10 years - EGD W/O OR W/BRUSH/WASH 01/30/2013 EGD - LIGATE FALLOPIAN TUBE Tubal ligation - REMOVAL OF TONSILS,<12 Y/O Tonsillectomy - US BX OF BREAST NEEDLE 2007 Right, benign Family History FAMILY HISTORY Problem Relation Age of Onset - Alcohol/Drug Paternal Grandfather - Allergies Mother - Allergies Sister - Cancer Maternal Grandmother - Colon Cancer Maternal Aunt - Diabetes Brother - Alzheimer's Disease Mother - depression [Other] [OTHER] Sister 2 sisters - depression [Other] [OTHER] Mother - Hypertension Sister - Hypertension Sister - Stroke Mother TIA's - Coronary Artery Disease Maternal Grandfather - Aneurysm Father 84 - Arthritis Maternal side of family Patient Allergies ALLERGIES Allergen Reactions - Seasonal Allergies Other: See Comments headaches Current Medications Current Outpatient Prescriptions on File Prior to Visit: LORazepam (ATIVAN) 0.5 mg tab Take 1-2 tablets by mouth twice daily as needed. venlafaxine ER (EFFEXOR XR) 37.5 mg 24 hr capsule Take 1 capsule by mouth once daily. MELATONIN ORAL Take by mouth. No current facility-administered medications on file prior to visit. Social History Social History Marital status: Spouse name: Jammie Years of education: Number of children: 2 Occupational History Occupation Employer Comment Social History Main Topics Smoking status: Former Smoker Packs/day: 0.00 Years: 0.00 Smokeless status: Never Used Alcohol use: Yes 36.0 oz/week Comment: Occasionally Drug use: No Sexual activity: Yes Partners with: Male control/protection: Tubal Ligation EXAM: BP 120/72 Pulse 68 Resp 14 Wt 67.6 kg (149 lb) BMI 28.68 kg/m2 General Appearance: Well appearing, alert, in no acute distress, well-hydrated, well nourished.. Lungs: Lungs clear to auscultation. No wheezing, rhonchi, rales. Heart: RRR without murmur, gallop, or rubs. No ectopy. Abdomen: Normal abdominal exam, Abdomen soft, non-tender. Bowel sounds normal. No masses, organomegaly. Left foot: tenderness second metatarsal head, no swelling or deformity. Health Maintenance List HEPATITIS C SCREENING due on 2005 HPV EVERY 5 YEARS due on 07/23/2016 INFLUENZA(1) due on 10/06/2016 MAMMOGRAM due on 12/21/2016 LIPID SCREEN due on 07/16/2017 PAP EVERY 5 YEARS due on 09/17/2018 DIABETES SCREEN due on 12/23/2018 COLORECTAL CANCER SCREENING,SEE MODIFIER due on 08/17/2021 TETANUS due on 11/15/2021 Data reviewed None ASSESSMENT/PLAN: 1. Foot pain, left - ICD9: 729.5, ICD10: M79.672 (primary diagnosis) - CONSULT TO PODIATRY - XR FOOT GENERAL 3V AP/LAT/OBL LT 2. Screening for malignant neoplasm of breast - ICD9: V76.10, ICD10: Z12.31 - OSMAN SCREENING 3. Screening for cervical cancer - ICD9: V76.2, ICD10: Z12.4 - CONSULT TO GYNECOLOGY 4. Anxiety - ICD9: 300.00, ICD10: F41.9 Increase effexor to 75 mg daily; continue ativan - LORAZEPAM 0.5 MG TABLET 5. Dysphagia, unspecified type - ICD9: 787.20, ICD10: R13.10 - CONSULT TO GASTROENTEROLOGY 6. Fatigue, unspecified type - ICD9: 780.79, ICD10: R53.83 - COMP METABOLIC PANEL - TSH BLD Notify of lab results Follow up in 3 months Heather Siddiqui MD ALLERGIES ALLERGIES DATE TYPE / CODE NAME / CODE REACTION SEVERITY SOURCE 07/11/2011 Environ/420 SEASONAL OTHER: SEE C [facility] [id number](SNOM ALLERGIES [facility] [place] [facility]) Repository ENCOUNTERS ENCOUNTERS ADMIT/DISCHARGE ACCOUNT ADMITTING ENCOUNTER LOCATION SOURCE NUMBER CLASS 02/26/2018 [id number] Ambulatory [facility] ing:US Repository 02/19/2018 [id number] [facility] ing[facility] Repository 02/07/2018/02/07/19 [id number] Ambulatory [address] [place] Repository 02/01/2018/02/05/20 [id number] Ambulatory [address] [place] Repository 01/03/2018/01/05/20 [id number] Ambulatory [address] [place] Repository 12/17/2017/12/18/19 [id number] Ambulatory [place] [facility] [place] Repository 12/17/2017/12/18/19 [id number] Ambulatory [address] [place] Repository 12/17/2017/12/19/19 [id number] Ambulatory [address] [place] Repository 07/04/2017/07/06/19 [id number] Ambulatory [place] [facility] [place] Repository 07/04/2017/07/05/19 [id number] Ambulatory [place] [facility] [place] Repository 07/03/2017/07/05/19 [id number] Ambulatory [place] [facility] [place] Repository 05/31/2017/06/02/19 [id number] Ambulatory [place] [facility] [place] Repository 05/29/2017/05/31/19 [id number] Ambulatory [place] [facility] [place] Repository 05/29/2017/05/30/19 [id number] Ambulatory [place] [facility] [place] Repository 05/29/2017/05/31/19 [id number] Ambulatory [place] [facility] [place] Repository 05/23/2017/05/24/19 [id number] Ambulatory [place] [facility] [place] Repository 05/23/2017/05/26/19 [id number] Ambulatory [place] [facility] [place] Repository 05/23/2017/05/24/19 [id number] Ambulatory [address] [place] Repository 05/15/2017/05/16/19 [id number] Ambulatory [address] Repository 05/01/2017/05/03/19 [id number] Ambulatory [address] Repository 04/09/2017/04/12/19 [id number] Ambulatory [address] Repository 04/07/2017/04/08/19 [id number] Ambulatory [address] Repository 04/02/2017/04/02/19 [id number] Ambulatory [address] Repository 04/02/2017/04/07/19 [id number] Ambulatory [address] Repository PAYERS PAYERS ENCOUNTER GUARANTOR PAYER SUBSCRIBER SOURCE 02/26/2018 BROOK Tompkins Primary BROOK Leda Ronnie [id number] [place] Insurance:ANTHEMPolic FRIESDOB: Community [facility], [place] Number: [id number] [facility] [id number]: 330 [id number] Repository [phone] () Date:[id number] [address]QT: 02/26/2018 Secondary NOT GIVENUNK Ethel Insurance:SELF PAY [facility] Number: Effective Repository Date:2018-02-19 02/19/2018 BROOK Tompkins Primary BROOK [place] [id number] [place] Insurance:ANTHEMPolic FRIESDOB: [facility] [place] Number: [id number] Hospital [address]Cra: 330 [id number] Repository [phone] () Date:[id number] [address]KW: 02/19/2018 Secondary NOT GIVENUNK Ethel Insurance:SELF PAY [facility] Number: Effective Repository Date:2018-02-19
== END ==
PROVIDERS: Family Provider Family Medicine; PCP Family Medicine; Referring Provider Internal Medicine Rheumatology; Visit Provider Internal Medicine Rheumatology
DX: R94.5 Abnormal results of liver function studies (principal); M05.79 Rheumatoid arthritis with rheumatoid factor of multiple sites without organ or systems involvement; M15.9 Polyosteoarthritis, unspecified; M21.40 Flat foot [pes planus] (acquired), unspecified foot; M51.37 Other intervertebral disc degeneration, lumbosacral region
CPT/HCPCS: 76705

== ENCOUNTER → 2018-03-08 16:36 | Outpatient (CLI) | payer BC, SELFPAY ==
--- NOTE | 2018-03-08 16:41 | RAD_ITS ---
STUDY: X-RAY CHEST REASON FOR EXAM: Female, 58 years old. Rheumatoid arthritis, long-term medication use TECHNIQUE: PA and lateral views of the chest. COMPARISON: None. FINDINGS: The lungs are clear and expanded. There is no demonstrated pleural abnormality. Normal size heart. Normal mediastinum and jaqueline. Normal visualized pulmonary arteries. Normal visualized aortic arch and descending thoracic aorta. There is a dextroscoliosis of the thoracic spine. Normal visualized ribs, clavicles, and shoulders. There is no demonstrated abnormality of the visualized soft tissue structures of the upper abdomen. RAD/Chest PA and Lateral IMPRESSION: 1. No acute cardiopulmonary process. No pulmonary nodule or fibrotic changes identified. Electronically Signed: Jimmie Leslie MD at 10:29 EST , Service support ,
== END ==
PROVIDERS: Family Provider Family Medicine; PCP Family Medicine; Referring Provider Internal Medicine Rheumatology; Visit Provider Internal Medicine Rheumatology
DX: M05.79 Rheumatoid arthritis with rheumatoid factor of multiple sites without organ or systems involvement (principal); K76.0 Fatty (change of) liver, not elsewhere classified; M21.40 Flat foot [pes planus] (acquired), unspecified foot; M51.37 Other intervertebral disc degeneration, lumbosacral region; F41.9 Anxiety disorder, unspecified; F32.89 Other specified depressive episodes; H93.13 Tinnitus, bilateral; E04.1 Nontoxic single thyroid nodule; Z79.899 Other long term (current) drug therapy
CPT/HCPCS: 71046

== ENCOUNTER → 2018-06-03 | Outpatient (CLI) | payer BC, SELFPAY ==
[2018-06-03 17:47] LABS: Absolute Lymphocyte Count 2.09 X10^3/ul (0.83-4.51); Absolute Neutrophil Count 2.4 X10^3/uL (2.0-7.7); Basophil# 0.02 X10^3/uL; Basophil% 0.4 % (0-1); Eosinophil# 0.09 X10^3/uL; Eosinophils% 1.8 % (0-5); Hematocrit 38.6 % (37-47); Hemoglobin 12.9 g/dl (12.0-15.0); Lymphocyte # 2.09 X10^3/ul (4.0); Lymphocyte % 41.4 % (19-41); Mean Corp Hgb Conc 33.4 g/gl (32-36); Mean Corpuscular Hgb 30.2 pg (27.0-32.0); Mean Corpuscular Volume 90.4 fL (81-99); Mean Platelet Vol. 10.3 fl (6.2-12.0); Monocyte# 0.45 X10^3/uL; Monocyte% 8.9 % (0-10); Neutrophil % 47.5 % (47-70); Platelet Count 279 K/mm3 (150-450); RBC Distribution Width SD 42.5 fl (35.1-43.9); Red Blood Count 4.27 M/mm3 (4.2-5.4); White Blood Count 5.1 K/mm3 (4.4-11.0)
[2018-06-03 17:53] LABS: POSITIVE COUNT NO; POSITIVE DIFFERENTIAL NO; POSITIVE MORPHOLOGY NO
[2018-06-03 17:56] LABS: ALB/GLOB Ratio 1.1 RATIO (0.9-2.4); AST(SGOT) 30 U/L (15-37); Alanine Aminotransfer ALT/SGPT 52 U/L (13-56); Albumin, Serum 3.9 g/dL (3.2-5.0); Alkaline Phosphatase 96 U/L (45-117); Anion Gap 7 (5-15); BUN 16 mg/dL (7-18); BUN/Creat Ratio 22.3 RATIO (10-20); Chloride 111 mmol/L (98-107); Creatinine, Serum 0.72 mg/dL (0.55-1.02); EST Glomerular Filtration Rate 89 mL/min (>60); Est Glom Filt Rate - Afr Amer 108 mL/min (>60); Globulin 3.5 g/dL (2.2-4.2); Glucose 93 mg/dL (74-106); Potassium 3.8 mmol/L (3.5-5.1); Protein, Total 7.4 g/dL (6.4-8.2); Sodium Level 145 mmol/L (136-145)
== END | disposition home or self-care (01) ==
LOC: MTLAB 15:48
PROVIDERS: Family Provider Family Medicine; PCP Family Medicine; Referring Provider Internal Medicine Rheumatology; Visit Provider Internal Medicine Rheumatology
DX: M05.79 Rheumatoid arthritis with rheumatoid factor of multiple sites without organ or systems involvement (principal); M15.9 Polyosteoarthritis, unspecified; M21.40 Flat foot [pes planus] (acquired), unspecified foot; M51.37 Other intervertebral disc degeneration, lumbosacral region; F41.9 Anxiety disorder, unspecified; F32.89 Other specified depressive episodes; H93.13 Tinnitus, bilateral; E04.1 Nontoxic single thyroid nodule; K76.0 Fatty (change of) liver, not elsewhere classified; Z79.899 Other long term (current) drug therapy
CPT/HCPCS: 36415; 80053; 85025

== ENCOUNTER → 2018-09-05 | Outpatient (CLI) | payer BC, SELFPAY ==
[2018-09-05 16:32] LABS: Absolute Lymphocyte Count 1.85 X10^3/uL (0.83-4.51); Absolute Neutrophil Count 2.7 X10^3/uL (2.0-7.7); Basophil# 0.02 X10^3/uL; Basophil% 0.4 % (0-1); Eosinophil# 0.08 X10^3/uL; Eosinophils% 1.5 % (0-5); Hematocrit 37.9 % (37-47); Hemoglobin 12.4 g/dL (12.0-15.0); Lymphocyte # 1.85 X10^3/ul (4.0); Lymphocyte % 35.4 % (19-41); Mean Corp Hgb Conc 32.7 g/dL (32-36); Mean Corpuscular Hgb 29.9 pg (27.0-32.0); Mean Corpuscular Volume 91.3 fL (81-99); Mean Platelet Vol. 9.8 fl (6.2-12.0); Monocyte# 0.57 X10^3/uL; Monocyte% 10.9 % (0-10); NRBC Flagged by Analyzer 0 % (0-5); Neutrophil % 51.6 % (47-70); Platelet Count 271 K/mm3 (150-450); RBC Distribution Width CV 12.5 % (11.6-14.6); RBC Distribution Width SD 41.4 fl (35.1-43.9); Red Blood Count 4.15 M/mm3 (4.2-5.4); White Blood Count 5.2 K/mm3 (4.4-11.0)
[2018-09-05 17:01] LABS: AST(SGOT) 30 U/L (15-37); Alanine Aminotransfer ALT/SGPT 64 U/L (13-56); Albumin, Serum 3.7 g/dL (3.2-5.0); Alkaline Phosphatase 100 U/L (45-117); Anion Gap 7 (5-15); BUN 13 mg/dL (7-18); BUN/Creat Ratio 19.6 RATIO (10-20); Calcium,Total 8.8 mg/dL (8.5-10.1); Chloride 109 mmol/L (98-107); Creatinine, Serum 0.66 mg/dL (0.55-1.02); EST Glomerular Filtration Rate 97 mL/min (>60); Est Glom Filt Rate - Afr Amer 118 mL/min (>60); Globulin 3.7 g/dL (2.2-4.2); Glucose 93 mg/dL (74-106); Potassium 3.9 mmol/L (3.5-5.1); Protein, Total 7.4 g/dL (6.4-8.2); Sodium Level 144 mmol/L (136-145)
== END | disposition home or self-care (01) ==
LOC: LAB 16:06
PROVIDERS: Family Provider Family Medicine; PCP Family Medicine; Referring Provider Internal Medicine Rheumatology; Visit Provider Internal Medicine Rheumatology
DX: M05.79 Rheumatoid arthritis with rheumatoid factor of multiple sites without organ or systems involvement (principal); K76.0 Fatty (change of) liver, not elsewhere classified; M15.9 Polyosteoarthritis, unspecified; M21.40 Flat foot [pes planus] (acquired), unspecified foot; M51.37 Other intervertebral disc degeneration, lumbosacral region; F41.9 Anxiety disorder, unspecified; F32.89 Other specified depressive episodes; H93.13 Tinnitus, bilateral; E04.1 Nontoxic single thyroid nodule; Z79.899 Other long term (current) drug therapy
CPT/HCPCS: 36415; 80053; 85025

== ENCOUNTER → 2018-12-05 | Outpatient (CLI) | payer BC, SELFPAY ==
[2018-12-05 17:39] LABS: Absolute Lymphocyte Count 1.56 X10^3/uL (0.83-4.51); Basophil# 0.02 X10^3/uL; Basophil% 0.4 % (0-1); Eosinophil# 0.06 X10^3/uL; Eosinophils% 1.1 % (0-5); Hemoglobin 12.5 g/dL (12.0-15.0); Lymphocyte # 1.56 X10^3/ul (4.0); Lymphocyte % 29.9 % (19-41); Mean Corp Hgb Conc 32.9 g/dL (32-36); Mean Corpuscular Hgb 29.8 pg (27.0-32.0); Mean Corpuscular Volume 90.5 fL (81-99); Mean Platelet Vol. 10.5 fl (6.2-12.0); Monocyte# 0.58 X10^3/uL; Monocyte% 11.1 % (0-10); NRBC Flagged by Analyzer 0 % (0-5); Neutrophil % 57.5 % (47-70); Platelet Count 258 K/mm3 (150-450); RBC Distribution Width CV 12.5 % (11.6-14.6); White Blood Count 5.2 K/mm3 (4.4-11.0)
[2018-12-05 18:05] LABS: ALB/GLOB Ratio 1.1 RATIO (0.9-2.4); AST(SGOT) 34 U/L (15-37); Alanine Aminotransfer ALT/SGPT 74 U/L (13-56); Albumin, Serum 3.7 g/dL (3.2-5.0); Alkaline Phosphatase 113 U/L (45-117); Anion Gap 8 (5-15); BUN 14 mg/dL (7-18); BUN/Creat Ratio 16.8 RATIO (10-20); Calcium,Total 8.8 mg/dL (8.5-10.1); Chloride 109 mmol/L (98-107); Creatinine, Serum 0.83 mg/dL (0.55-1.02); EST Glomerular Filtration Rate 75 mL/min (>60); Est Glom Filt Rate - Afr Amer 91 mL/min (>60); Globulin 3.5 g/dL (2.2-4.2); Glucose 114 mg/dL (74-106); Potassium 3.9 mmol/L (3.5-5.1); Protein, Total 7.2 g/dL (6.4-8.2); Sodium Level 145 mmol/L (136-145)
== END | disposition home or self-care (01) ==
LOC: MTLAB 15:56
PROVIDERS: Family Provider Family Medicine; PCP Family Medicine; Referring Provider Internal Medicine Rheumatology; Visit Provider Internal Medicine Rheumatology
DX: M05.79 Rheumatoid arthritis with rheumatoid factor of multiple sites without organ or systems involvement (principal); K76.0 Fatty (change of) liver, not elsewhere classified; M15.9 Polyosteoarthritis, unspecified; M21.40 Flat foot [pes planus] (acquired), unspecified foot; M51.37 Other intervertebral disc degeneration, lumbosacral region; Z79.899 Other long term (current) drug therapy
CPT/HCPCS: 36415; 80053; 85025

== ENCOUNTER → 2019-04-07 | Outpatient (CLI) | payer BC, SELFPAY ==
[2019-04-07 17:48] LABS: Absolute Neutrophil Count 2.9 X10^3/uL (2.0-7.7); Basophil# 0.02 X10^3/uL; Basophil% 0.4 % (0-1); Eosinophil# 0.06 X10^3/uL; Eosinophils% 1.1 % (0-5); Hematocrit 39.9 % (37-47); Lymphocyte % 32.4 % (19-41); Mean Corp Hgb Conc 32.6 g/dL (32-36); Mean Corpuscular Hgb 29.5 pg (27.0-32.0); Mean Corpuscular Volume 90.7 fL (81-99); Mean Platelet Vol. 10.4 fl (6.2-12.0); Monocyte# 0.56 X10^3/uL; Monocyte% 10.7 % (0-10); NRBC Flagged by Analyzer 0 % (0-5); Neutrophil # 2.89 X10^3/uL (2.7-7.7); Neutrophil % 55.2 % (47-70); Platelet Count 289 K/mm3 (150-450); RBC Distribution Width CV 12.2 % (11.6-14.6); RBC Distribution Width SD 40.8 fl (35.1-43.9); White Blood Count 5.2 K/mm3 (4.4-11.0)
[2019-04-07 18:23] LABS: ALB/GLOB Ratio 1.1 RATIO (0.9-2.4); AST(SGOT) 26 U/L (15-37); Alanine Aminotransfer ALT/SGPT 51 U/L (13-56); Albumin, Serum 3.9 g/dL (3.2-5.0); Alkaline Phosphatase 87 U/L (45-117); Anion Gap 4 (5-15); BUN 12 mg/dL (7-18); BUN/Creat Ratio 15.2 RATIO (10-20); Calcium,Total 9.1 mg/dL (8.5-10.1); Chloride 105 mmol/L (98-107); Creatinine, Serum 0.79 mg/dL (0.55-1.02); EST Glomerular Filtration Rate 80 mL/min (>60); Est Glom Filt Rate - Afr Amer 97 mL/min (>60); Globulin 3.6 g/dL (2.2-4.2); Glucose 85 mg/dL (74-106); Protein, Total 7.5 g/dL (6.4-8.2); Sodium Level 139 mmol/L (136-145)
== END | disposition home or self-care (01) ==
LOC: MTLAB 15:59
PROVIDERS: PCP Family Medicine; Referring Provider Internal Medicine Rheumatology; Visit Provider Internal Medicine Rheumatology
DX: M05.79 Rheumatoid arthritis with rheumatoid factor of multiple sites without organ or systems involvement (principal); K76.0 Fatty (change of) liver, not elsewhere classified; M15.9 Polyosteoarthritis, unspecified; M21.40 Flat foot [pes planus] (acquired), unspecified foot; M51.37 Other intervertebral disc degeneration, lumbosacral region; F41.9 Anxiety disorder, unspecified; F32.89 Other specified depressive episodes; H93.13 Tinnitus, bilateral; E04.1 Nontoxic single thyroid nodule; Z79.899 Other long term (current) drug therapy
CPT/HCPCS: 36415; 80053; 85025

== ENCOUNTER → 2019-04-08 | Outpatient (CLI) | payer BC, SELFPAY ==
[2019-04-08 17:48] LABS: Erythrocyte Sedimentation Rate 7 mm/hr (0-30)
[2019-04-08 17:58] LABS: CRP < 2.90 mg/L (0.0-3.0)
== END | disposition home or self-care (01) ==
LOC: MTLAB 16:36
PROVIDERS: PCP Family Medicine; Referring Provider Internal Medicine Rheumatology; Visit Provider Internal Medicine Rheumatology
DX: M05.70 Rheumatoid arthritis with rheumatoid factor of unspecified site without organ or systems involvement (principal); K76.0 Fatty (change of) liver, not elsewhere classified; M15.9 Polyosteoarthritis, unspecified; M21.40 Flat foot [pes planus] (acquired), unspecified foot; M51.37 Other intervertebral disc degeneration, lumbosacral region; F41.9 Anxiety disorder, unspecified; F32.89 Other specified depressive episodes; H93.13 Tinnitus, bilateral; E04.1 Nontoxic single thyroid nodule; Z79.899 Other long term (current) drug therapy
CPT/HCPCS: 36415; 85652; 86140

== ENCOUNTER → 2019-06-17 | Outpatient (CLI) | payer BC, SELFPAY ==
[2019-06-17 17:40] LABS: Absolute Lymphocyte Count 2.15 X10^3/uL (0.83-4.51); Absolute Neutrophil Count 2.9 X10^3/uL (2.0-7.7); Basophil# 0.03 X10^3/uL; Basophil% 0.5 % (0-1); Eosinophil# 0.23 X10^3/uL; Hematocrit 42.1 % (37-47); Hemoglobin 13.9 g/dL (12.0-15.0); Lymphocyte # 2.15 X10^3/ul (4.0); Lymphocyte % 37.4 % (19-41); Mean Corpuscular Hgb 29.9 pg (27.0-32.0); Mean Corpuscular Volume 90.5 fL (81-99); Mean Platelet Vol. 10.3 fl (6.2-12.0); Monocyte# 0.45 X10^3/uL; Monocyte% 7.8 % (0-10); NRBC Flagged by Analyzer 0 % (0-5); Neutrophil # 2.88 X10^3/uL (2.7-7.7); Neutrophil % 50.1 % (47-70); Platelet Count 276 K/mm3 (150-450); RBC Distribution Width CV 12.7 % (11.6-14.6); RBC Distribution Width SD 41.7 fl (35.1-43.9); Red Blood Count 4.65 M/mm3 (4.2-5.4); White Blood Count 5.8 K/mm3 (4.4-11.0)
[2019-06-17 18:00] LABS: Erythrocyte Sedimentation Rate 7 mm/hr (0-30)
[2019-06-17 18:38] LABS: AST(SGOT) 21 U/L (15-37); Alanine Aminotransfer ALT/SGPT 43 U/L (13-56); Albumin, Serum 3.7 g/dL (3.2-5.0); Alkaline Phosphatase 83 U/L (45-117); Anion Gap 7 (5-15); BUN 13 mg/dL (7-18); BUN/Creat Ratio 14.1 RATIO (10-20); CRP < 2.90 mg/L (0.0-3.0); Calcium,Total 9.2 mg/dL (8.5-10.1); Chloride 106 mmol/L (98-107); Creatinine, Serum 0.92 mg/dL (0.55-1.02); EST Glomerular Filtration Rate 67 mL/min (>60); Est Glom Filt Rate - Afr Amer 81 mL/min (>60); Globulin 3.6 g/dL (2.2-4.2); Glucose 132 mg/dL (74-106); Potassium 3.9 mmol/L (3.5-5.1); Protein, Total 7.3 g/dL (6.4-8.2); Sodium Level 141 mmol/L (136-145)
== END | disposition home or self-care (01) ==
LOC: MTLAB 14:40
PROVIDERS: PCP Family Medicine; Referring Provider Internal Medicine Rheumatology; Visit Provider Internal Medicine Rheumatology
DX: M05.70 Rheumatoid arthritis with rheumatoid factor of unspecified site without organ or systems involvement (principal); K76.0 Fatty (change of) liver, not elsewhere classified; M15.9 Polyosteoarthritis, unspecified; M21.40 Flat foot [pes planus] (acquired), unspecified foot; M51.37 Other intervertebral disc degeneration, lumbosacral region; F41.9 Anxiety disorder, unspecified; F32.89 Other specified depressive episodes; H93.13 Tinnitus, bilateral; E04.1 Nontoxic single thyroid nodule; Z79.899 Other long term (current) drug therapy
CPT/HCPCS: 36415; 80053; 85025; 85652; 86140

== ENCOUNTER → 2019-11-19 | Outpatient (CLI) | payer BC, SELFPAY | END | disposition home or self-care (01) | LOC: LABSPEC 10:09 | PROVIDERS: PCP Family Medicine; Referring Provider Family Medicine; Visit Provider Family Medicine | DX: Z20.828 Contact with and (suspected) exposure to other viral communicable diseases (principal) | CPT/HCPCS: 87635; C9803; U0003 ==

== ENCOUNTER 2021-09-17 12:48 | Emergency (ER) | payer BC, SELFPAY ==
[2021-09-17 12:49] VITALS: BP 146/82; PULSE 95; RESP 15; TEMP 36.7; O2SAT 100; BMI 29.4
--- NOTE | 2021-09-17 13:12 | EDS_ITS ---
HPI HPI - GI History of Present Illness Chief Complaint: Abd Pain Narrative Narrative: 61-year-old female presenting with left lower quadrant abdominal pain. She also has some pain in the left lower back. Patient states has had some diarrhea over the past 3 days. She has a general feeling of mild malaise. She thinks she may have may not have a fever at home. She is not coughing or short of breath. She went to the urgent care today and they checked a UA and this was normal. Patient states that the urgent care sent her over to rule out a fistula. She does not know what kind of fistula. She does state to me she has a history of diverticulitis. Her pain does resemble this. She states he does not have any urinary complaints or history of kidney stones. She is nauseous without vomiting. PFSH PFSH Home Medications amoxicillin 875 mg-potassium clavulanate 125 mg tablet 1 tab PO BID #20 tabs 09/17/21 [Rx Last Taken Unknown] hydrocodone-acetaminophen 5-325mg 5mg-325mg 1 tab PO Q6H PRN pain 3 days #12 tabs 09/17/21 [Rx Last Taken Unknown] ondansetron 4 mg disintegrating tablet 4 mg PO Q8H PRN nausea and vomiting #14 tabs 09/17/21 [Rx Last Taken Unknown] Allergy/AdvReac Type Severity Reaction Status Date / Time No Known Allergies Allergy Verified 09/17/21 12:49 Social History Smoking Status: Former smoker ROS ROS ED Constitutional Constitutional ED: Denies chills or fever(s) ENT ENT ED: Denies rhinorrhea or sore throat Cardiovascular Cardiovascular: Denies chest pain or palpitations Respiratory/Chest Respiratory/Chest: Denies cough or dyspnea Gastrointestinal Gastrointestinal: Reports abdominal pain, diarrhea and nausea; Denies vomiting Genitourinary Genitourinary ED: Denies dysuria or hematuria Musculoskeletal Musculoskeletal: Reports back pain; Denies arthralgias Integumentary Denies abscess Neurologic Neurologic: Reports headache(s); Denies paresthesias Psychiatric Psychiatric: Denies anxiety or depression EXAM Physical Exam Const Vital Signs: 09/17/21 12:49 Temperature 98.1 F Temperature Source Temporal Pulse Rate 95 Respiratory Rate 15 Blood Pressure 146/82 H Blood Pressure Mean 103 Pulse Ox 100 Oxygen Delivery Method Room Air Positive well nourished General Appearance ED: NAD; Negative for pallor HEENT Reports moist mucous membranes atraumatic Eyes PERRL and EOMs intact bilaterally General Eye ED: Negative for pale conjunctiva or scleral icterus Resp normal respiratory effort and clear to auscultation bilaterally Cardio regular rate and regular rhythm GI Palpation: tender LLQ Neuro CN's II-XII intact bilaterally Sensorium / Orientation: alert, oriented to person, oriented to place and oriented to time Motor Exam: strength 5/5 throughout Psych mental status grossly normal and thought process normal Skin General Skin Exam: Negative for jaundice or pallor MDM MDM MDM Narrative Medical decision making narrative: Patient presenting with left lower quadrant abdominal pain. She does have a history of diverticulitis. She was medicated with morphine and Zofran. I obtained blood work and her CBC and CMP are unremarkable. I did obtain a CT of the abdomen pelvis with IV contrast which does show an uncomplicated diverticulitis. Small mesenteric cyst as well but this is not associated with the diverticulitis with more than an abscess. Patient feeling well on reevaluation. Patient will be discharged home with Augmentin, [place], Zofran. She was given follow-up with Dr. Padgett for follow-up after her diverticulitis resolves. She is counseled on foods to avoid. Return precautions were discussed. Impression: 1. Acute sigmoid diverticulitis 2. Nausea 3. Mesenteric cyst Lab Data Attestation: I reviewed the patient's lab results. Labs: Laboratory Results - last 24 hr 09/17/21 09/17/21 13:45 13:45 WBC 10.1 RBC 4.65 Hgb 14.0 Hct 41.9 MCV 90.1 MCH 30.1 MCHC 33.4 RDW Std Deviation 41.3 RDW Coeff of Christopher 12.6 Plt Count 284 MPV 9.8 Immature Gran % (Auto) 0.300 Neut % (Auto) 79.3 H Lymph % (Auto) 10.3 L [place] % (Auto) 9.6 Eos % (Auto) 0.3 Baso % (Auto) 0.2 Absolute Neuts (auto) 8.0 H Absolute Lymphs (auto) 1.04 Nucleated RBC % 0 Sodium 138 Potassium 4.1 Chloride 105 Carbon Dioxide 29.0 Anion Gap 4 L BUN 13 Creatinine 0.75 Estim Creat Clear Calc 60.19 Est GFR (MDRD) Af Amer 102 Est GFR (MDRD) Non-Af 84 BUN/Creatinine Ratio 17.4 Glucose 106 Calcium 9.2 Total Bilirubin 0.60 AST 37 ALT 59 H Alkaline Phosphatase 95 Total Protein 7.9 Albumin 3.7 Globulin 4.2 Albumin/Globulin Ratio 0.9 Radiography Diagnostic Testing: Clinical Impression(s) from Imaging Studies Abdomen/Pelvis CT 09/17/21 13:12 IMPRESSION: 1. Diverticulosis of the sigmoid colon with mild thickening and stranding consistent with early acute diverticulitis. No evidence of drainable abscess or free air. 2. Well-defined fluid collection in the right lower quadrant of undetermined etiology at this time and may represent mesenteric cyst. 3. Small uterine fibroid. Electronically Signed: Bill Bell MD at 14:30 EDT , Discharge Plan Triage Chief Complaint: Abd Pain ED Provider: Thomas Morales Dx/Rx/DC Orders Instructions: ED Diverticulitis Prescriptions: New ondansetron 4 mg tablet,disintegrating 4 mg PO Q8H PRN (Reason: nausea and vomiting) Qty: 14 0RF amoxicillin-pot clavulanate 875-125 mg tablet 1 tab PO BID Qty: 20 0RF hydrocodone-acetaminophen 5-325 mg tablet 1 tab PO Q6H PRN (Reason: pain) 3 Days Qty: 12 0RF Primary Care Provider: Dave Marie Referrals: Dave Marie MD [Primary Care Provider] - Melvin Padgett DO [Med Staff - Active Staff] - As Needed Disposition Disposition: Home, Self Care
--- NOTE | 2021-09-17 13:12 | CT_ITS ---
STUDY: CT ABDOMEN AND PELVIS WITH CONTRAST REASON FOR EXAM: Female, 61 years old. Left lower quadrant pain RADIATION DOSAGE (If Supplied By Facility): CTDIvol = ( 13.73 ) mGy, DLP = ( 815.06 ) mGycm TECHNIQUE: Transaxial images were obtained from the dome of the diaphragm to the symphysis pubis without oral contrast. IV 100mL Isovue-370 was administered. Sagittal and coronal images were reconstructed. Individualized dose optimization techniques were used for this CT. COMPARISON: None. FINDINGS: The visualized lung bases are unremarkable. The visualized portions of the heart are within normal limits. 5 mm low-density lesion/cyst in the lower pole of the liver difficult to characterize on this exam. Normal gallbladder and extrahepatic biliary system. Normal spleen. Normal pancreas. Normal bilateral adrenal glands. Normal right kidney. Normal left kidney. Normal visualized stomach. Nonspecific fluid-filled small bowel loops. No evidence of bowel obstruction. Diverticulosis of the sigmoid colon with thickening of the segment of sigmoid colon. Early acute diverticulitis cannot be excluded. No evidence of free air or drainable abscess. The appendix is visualized and appears normal. Normal abdominal aorta. Normal inferior vena cava. Normal retroperitoneum. 5 x 7 x 5.5 cm fluid collection/cyst in the right lower quadrant posterior to the cecum undetermined etiology at this time and may represent mesenteric cyst. Normal urinary bladder. 2 cm mass in the anterior wall of uterus consistent with uterine fibroid. Status post bilateral tubal ligation.. Normal abdominal wall. Degenerative changes in the lower thoracic spine. CT/Abdomen/Pelvis W IV Cont ONLY IMPRESSION: 1. Diverticulosis of the sigmoid colon with mild thickening and stranding consistent with early acute diverticulitis. No evidence of drainable abscess or free air. 2. Well-defined fluid collection in the right lower quadrant of undetermined etiology at this time and may represent mesenteric cyst. 3. Small uterine fibroid. Electronically Signed: Bill Bell MD at 14:30 EDT ,
[2021-09-17] MEDS: Morphine 4 MG/ML Syringe IV (13:43)
[2021-09-17] MEDS: 0.9% Normal Saline 1,000 ML 1000 ML IV (13:44)
[2021-09-17] MEDS: Ondansetron 4 MG/2 ML Vial IV (13:44)
[2021-09-17 14:00] LABS: Absolute Lymphocyte Count 1.04 X10^3/uL (0.83-4.51); Basophil# 0.02 X10^3/uL; Basophil% 0.2 % (0-1); Eosinophil# 0.03 X10^3/uL; Eosinophils% 0.3 % (0-5); Hematocrit 41.9 % (37-47); Lymphocyte # 1.04 X10^3/ul (0.83-4.51); Lymphocyte % 10.3 % (19-41); Mean Corp Hgb Conc 33.4 g/dL (32-36); Mean Corpuscular Hgb 30.1 pg (27.0-32.0); Mean Corpuscular Volume 90.1 fL (81-99); Mean Platelet Vol. 9.8 fl (6.2-12.0); Monocyte# 0.97 X10^3/uL; Monocyte% 9.6 % (0-10); NRBC Flagged by Analyzer 0 % (0-5); Neutrophil # 7.97 X10^3/uL (2.7-7.7); Neutrophil % 79.3 % (47-70); Platelet Count 284 K/mm3 (150-450); RBC Distribution Width CV 12.6 % (11.6-14.6); RBC Distribution Width SD 41.3 fl (35.1-43.9); Red Blood Count 4.65 M/mm3 (4.2-5.4); White Blood Count 10.1 K/mm3 (4.4-11.0)
[2021-09-17 14:16] LABS: ALB/GLOB Ratio 0.9 RATIO (0.9-2.4); AST(SGOT) 37 U/L (15-37); Alanine Aminotransfer ALT/SGPT 59 U/L (13-56); Albumin, Serum 3.7 g/dL (3.2-5.0); Alkaline Phosphatase 95 U/L (45-117); Anion Gap 4 (5-15); BUN 13 mg/dL (7-18); BUN/Creat Ratio 17.4 RATIO (10-20); Calcium,Total 9.2 mg/dL (8.5-10.1); Chloride 105 mmol/L (98-107); Creatinine, Serum 0.75 mg/dL (0.55-1.02); EST Glomerular Filtration Rate 84 mL/min (>60); Est Glom Filt Rate - Afr Amer 102 mL/min (>60); Estimated Creatinine Clearance 60.19 ml/min; Globulin 4.2 g/dL (2.2-4.2); Glucose 106 mg/dL (74-106); Potassium 4.1 mmol/L (3.5-5.1); Protein, Total 7.9 g/dL (6.4-8.2); Sodium Level 138 mmol/L (136-145)
[2021-09-17] MEDS: HYDROcodone Bitartrate/Apap 5/325 Tablet PO (15:29)
[2021-09-17] MEDS: Amox/Clavulanate 875 MG Tablet PO (15:29)
== END 2021-09-17 15:36 | disposition home or self-care (01) ==
PROVIDERS: Emergency Provider Student in an Organized Health Care Education/Training Program; PCP Family Medicine; Visit Provider Student in an Organized Health Care Education/Training Program
DX: K57.32 Diverticulitis of large intestine without perforation or abscess without bleeding (principal); Z87.891 Personal history of nicotine dependence; R11.0 Nausea; K66.8 Other specified disorders of peritoneum
CPT/HCPCS: 74177; 80053; 85025; 96361; 96374; 96375; 99285; J7030; Q9967; J2405

== ENCOUNTER → 2021-09-23 | Outpatient (CLI) | payer BC, SELFPAY ==
[2021-09-23 15:18] LABS: Erythrocyte Sedimentation Rate 36 mm/hr (0-30)
[2021-09-23 16:01] LABS: LDH 157 U/L (84-246)
[2021-09-26 13:07] LABS: Albumin 3.2 g/dL (2.9-4.4); Alpha-1-Globulins 0.3 g/dL (0.0-0.4); Alpha-2-Globulins 0.9 g/dL (0.4-1.0); Gamma Globulin 1.1 g/dL (0.4-1.8); Immunoglobulin A 156 mg/dL (87-352); Immunoglobulin G 1134 mg/dL (586-1602); Immunoglobulin M 113 mg/dL (26-217); PROEL- TOTAL PROTEIN 6.8 g/dL (6.0-8.5)
[2021-09-27 08:03] LABS: Cancer Antigen 125 17.4 U/mL (0.0-38.1); IMMUNOFIXATION RESULT,S Comment: (.)
== END | disposition home or self-care (01) ==
LOC: LAB 14:48
PROVIDERS: PCP Family Medicine; Visit Provider Nurse Practitioner Adult Health
DX: R19.7 Diarrhea, unspecified (principal); K57.92 Diverticulitis of intestine, part unspecified, without perforation or abscess without bleeding; R18.8 Other ascites
CPT/HCPCS: 36415; 82378; 82784; 83615; 84165; 85652; 86140; 86304; 86334

== ENCOUNTER → 2021-09-26 | Outpatient (CLI) | payer BC, SELFPAY ==
[2021-09-28 08:02] LABS: Calprotectin, Stool 49 ug/g (0-120)
== END | disposition home or self-care (01) ==
LOC: LABSPEC 08:35
PROVIDERS: PCP Family Medicine; Referring Provider Nurse Practitioner Adult Health; Visit Provider Nurse Practitioner Adult Health
DX: K57.92 Diverticulitis of intestine, part unspecified, without perforation or abscess without bleeding (principal); R19.7 Diarrhea, unspecified
CPT/HCPCS: 83630; 83993; 87177; 87209; 87493; 87506

== ENCOUNTER 2021-11-28 07:50 | Day surgery (SDC) | payer BC, SELFPAY ==
[2021-11-28] VITALS (7 sets, daily range): BP systolic 92–124; BP diastolic 58–82; PULSE 58–76; RESP 16–18; TEMP 35.9–36.7; O2SAT 97–98; BMI 28.3
--- NOTE | 2021-11-28 | ESO_PTH ---
PATIENT: BROOK PINA LOC: EN U#:[id number] AGE/SX: 61/F ROOM: RE11/28/[address]: Dr. Melvin Padgett DO : 1960 BED: DIS: 11/28/2021 SPEC #: [id number] RECD: 11/28/21 10:42 STATUS: PAYAL SAMIR #: [id number] RENA: 11/28/21 00:[address]: Melvin Padgett DEPT: SURGICAL PATHOLOGY RECD BY: Magdiel Alejandre ENTERED: 11/28/21 10:43 SP TYPE: RAFAELA MORAES DR: Dr. Dave Marie MD Tissues: A - Esophagus, NOS B - Ileum, NOS C - Sigmoid colon biopsy Procedures: Surgery Specimen Level IV HEADER OPERATION: Colonoscopy, EGD ([facility] [place] biopsy, dilation PRE-OP DIAGNOSIS: Acute diverticulitis, diarrhea, dysphagia TISSUE SUBMITTED: A - Random esophageal biopsy, B - Terminal ileum biopsy, C - Sigmoid biopsy MICROSCOPIC DIAGNOSIS A. Esophagus, random biopsy: Focal changes of reflux. See comment. B. Terminal ileum, biopsy: No pathologic change. C. Sigmoid colon, biopsy: No pathologic change. AM:sky 11/29/2021 COMMENT A. Junctional mucosa is not represented in the biopsy. Clinical correlation is suggested. MICROSCOPIC DESCRIPTION Slides are reviewed. GROSS DESCRIPTION A - Received in fixative is one container labeled with the patient's name and designated random esophagus biopsy. The specimen consists of multiple irregular fragments of light arreola soft tissue that in aggregate measure 2 x 1 x 0.1 cm. The specimen is totally submitted in one cassette. B - Received in fixative is one container labeled with the patient's name and designated terminal ileum biopsy. The specimen consists of multiple irregular fragments of light arreola soft tissue that in aggregate measure 1 x 0.5 x 0.1 cm. The specimen is totally submitted in one cassette. C - Received in fixative is one container labeled with the patient's name and designated sigmoid biopsy. The specimen consists of multiple irregular fragments of light arreola soft tissue that in aggregate measure 1 x 0.3 x 0.1 cm. The specimen is totally submitted in one cassette. / AM:sky 11/28/2021 TC:3 CPT: 65894 x3
[2021-11-28] MEDS: Lactated Ringers 1,000 ML 15 ML IV (08:00)
--- NOTE | 2021-11-28 09:12 | HP.PCM_ITS ---
History and Physical Date of Admission: 11/28/21 BROOK PINA, is a 61 F who presents to the office today for f/u ED visit on 09/17/21 for diverticulitis, discharged on augmentin. Accompanied by . CT in ED showed diverticulitis and a fluid collection in the right lower abdomen, no evidence of abscess. Symptoms started about 4 wks ago, pain middle of lower abdomen, was intermittent discomfort with mild loose stools, but then pain became constant and developed diarrhea. [place] poorly in general with max temp 99, no chills. Pain is sharp, still constant but better on augmentin. Pain is worse with BM, worse with full bladder. Now pain is rated 2/10, at its worst it was 7/10 when she went to ED. Increased pain when she eats, then has diarrhea within next couple of hours. Does better on only liquids, trying to follow BRAT diet. Painful cramping diarrhea. No blood per rectum. Nausea when more severe pain, no vomiting. No heartburn. Last week it felt like food and pills were sticking in mid esophagus. Some flares of similar symptoms but much milder over the years, with lower abd discomfort and loose stools. Remote hx of duller pain in rectum, resolved spontaneously, felt constipated but had regular BMs, no diarrhea, never had evaluated. Last colonoscopy 10 yrs ago, no worrisome findings that she recalls. Off effexor and ativan x 6 wks for anxiety/depression Abdomen/Pelvis CT? 09/17/21 IMPRESSION: 1.? Diverticulosis of the sigmoid colon with mild thickening and stranding consistent with early acute diverticulitis.? No evidence of drainable abscess or free air. 2.? Well-defined fluid collection in the right lower quadrant of undetermined etiology at this time and may represent mesenteric cyst. 3.? Small uterine fibroid. ROS Const Constitutional: Positive for fatigue, headache(s) and weight change ENT ENT: Positive for headache(s); No difficulty swallowing Gastro GI: Positive for abdominal pain, bloating, change in bowel habits, diarrhea, excessive flatus and nausea/dyspepsia; No belching, change in stool character, coffee ground emesis, constipation, cramping, heartburn, difficulty swallowing, feeling full early, incontinent of stools, Vomiting blood/hematemesis, Blood in stool, loose stools, Black,tarry stools, pain with swallowing, vomiting or other Musc Musculoskeletal: Positive for abnormal gait, joint pain, back pain, muscle cramps, muscle weakness, numbness, stiffness, tingling, Arthritis, sciatica, restless legs and leg pain at night Skin Skin: No yellowing of the eye or itchy eyes Neuro Neurology: Positive for abnormal gait, dizziness, headache(s), numbness, tingling and restless legs Psych Psychiatric: Positive for anxiety, Positive for depression and Positive for inattentiveness Endo Endocrine: Positive for fatigue and weight change Aller/Imm Allergy/Immunologic: No itchy eyes Isaak/Lymp Hematologic/Lymphatic: No easy bleeding or easy bruising Exam Const General: cooperative and no acute distress Nutritional Appearance: overweight Orientation: alert, awake and oriented x3 HENMT Head: normal to inspection Eyes General: appearance normal, both eyes and all related structures Resp Effort & Inspection: normal respiratory effort GI Inspection: normal to inspection Palpation: soft, no hepatosplenomegaly, no masses and tender in the epigastrum and in the RLQ Skin General: no rashes or lesions noted Neuro Speech: speech normal Gait: normal gait Psych Mood: euthymic mood Affect: normal affect Quality Reporting Tobacco Screening ([facility] 138) Smoking Status: Former smoker Assessment and Plan Assessment and Plan (1) Acute diverticulitis: ?Status:?Acute ?Plan: 61 yr old female with acute diverticulitis improving on augmentin. CT images viewed at appt with Dr Padgett; repeat CT 6 wks to reeval the fluid collection in the lower right abd, ensure it resolves, no evidence of abscess. Will check tumor markers because of this fluid collection. No hx ovarian cysts. Only abd/pel surgeries: tubal, . finish augmentin continue BRAT diet as needed, advance as tolerated labs today to eval for ibd (considering recurrent similar symptoms over the years), infection stool tests for infection, inflammation schedule egd (dysphagia) and colonoscopy (2) Diarrhea: ?Status:?Acute ?Plan: as above (3) Intraabdominal fluid collection: ?Status:?Acute ?Plan: as above ? ? ? Orders: Orders Calprotectin, Stool 09/23/21 K57.92 - Diverticulitis of inte madalyn, part unspecified, without perforation or abscess without bleeding, R19.7 - Diarrhea, unspecified ? Ova and Parasites 8623 09/23/21 K57.92 - Diverticulitis of inte madalyn, part unspecified, without perforation or abscess without bleeding, K58.9 - Irritable bowel syndrome without diarrhea, R19.7 - Diarrhea, unspecified ? CDIFF (PCR) 09/23/21 K57.92 - Diverticulitis of inte madalyn, part unspecified, without perforation or abscess without bleeding, R19.7 - Diarrhea, unspecified ? ENTERIC PATHOGEN PANEL STOOL 09/23/21 K57.92 - Diverticulitis of inte madalyn, part unspecified, without perforation or abscess without bleeding, K58.9 - Irritable bowel syndrome without diarrhea, R19.7 - Diarrhea, unspecified ? Stool Lactoferrin/WBC 09/23/21 K57.92 - Diverticulitis of inte madalyn, part unspecified, without perforation or abscess without bleeding, K58.9 - Irritable bowel syndrome without diarrhea, R19.7 - Diarrhea, unspecified ? CRP 09/23/21 K57.92 - Diverticulitis of inte madalyn, part unspecified, without perforation or abscess without bleeding, R19.7 - Diarrhea, unspecified ? Erythrocyte Sed Rate 09/23/21 K57.92 - Diverticulitis of inte madalyn, part uns pecified, without perforation or abscess without bleeding, R19.7 - Diarrhea, unspecified ? Cancer Antigen 125 09/23/21 K57.92 - Diverticulitis of inte madalyn, part unspeci fied, without perforation or abscess without bleeding, R18.8 - Other ascites, R19.7 - Diarrhea, unspecified ? NACHO + Protein Elect, Serum 09/23/21 K57.92 - Diverticulitis of inte madalyn, part unspecified, without perforation or abscess without bleeding, R18.8 - Other ascites, R19.7 - Diarrhea, unspecified ? Carcinoembryonic Antigen 09/23/21K K57.92 - Diverticulitis of int estine, part unspecified, without perforation or abscess without bleeding, R18.8 - Other ascites, R19.7 - Diarrhea, unspecified ? LDH 09/23/21 K57.92 - Diverticulitis of inte madalyn, part unspecified, without perforation or abscess without bleeding, R18.8 - Other ascites, R19.7 - Diarrhea, unspecified ? Medications: New dicyclomine 10 mg? PO BID PRN 30 caps 0RF diarrhea ? ? Discontinued ondansetron ?? Discontinued Reason:? Pt no longer taking 4 mg? PO Q8H PRN 14 tabs 0RF nausea and vomiting ? ? I have re-examined the patient. There are no clinical changes since date of exam.
--- NOTE | 2021-11-28 09:55 | OP.EGD_ITS ---
Patient Name: Felice Chapman Procedure Date: 11/28/2021 9:12 AM Date of : 1960 Age: 61 Procedure: Upper GI endoscopy Indications: Dysphagia Providers: Melvin Padgett DO Medicines: Monitored Anesthesia Care Patient Profile: This is a 61 year old female. Refer to note in patient chart for documentation of history and physical. Patient has symptoms of chronic dysphagia and dysphagia with solids. She is status post colonoscopy (normal) in the distant past. Complications: No immediate complications. Procedure: Pre-Anesthesia Assessment: - Prior to the procedure, a History and Physical was performed, and patient medications and allergies were reviewed. The risks and benefits of the procedure and the sedation options and risks were discussed with the patient. All questions were answered and informed consent was obtained. Patient identification and proposed procedure were verified by the physician in the pre-procedure area. Mental Status Examination: alert and oriented. Airway Examination: normal oropharyngeal airway and neck mobility. Respiratory Examination: clear to auscultation. CV Examination: normal. Prophylactic Antibiotics: The patient does not require prophylactic antibiotics. Prior Anticoagulants: The patient has taken no previous anticoagulant or antiplatelet agents. After reviewing the risks and benefits, the patient was deemed in satisfactory condition to undergo the procedure. The anesthesia plan was to use monitored anesthesia care (MAC). Immediately prior to administration of medications, the patient was re-assessed for adequacy to receive sedatives. The heart rate, respiratory rate, oxygen saturations, blood pressure, adequacy of pulmonary ventilation, and response to care were monitored throughout the procedure. The physical status of the patient was re-assessed after the procedure. After obtaining informed consent, the endoscope was passed under direct vision. Throughout the procedure, the patient's blood pressure, pulse, and oxygen saturations were monitored continuously. The Colonoscope was introduced through the mouth, and advanced to the second part of duodenum. The upper GI endoscopy was accomplished without difficulty. The patient tolerated the procedure well. Scope In: 9:21:52 AM Scope Out: 9:29:54 AM Total Procedure Duration Time 0 hours 8 minutes 2 seconds Findings: Mucosal changes including ringed esophagus, feline appearance and small-caliber esophagus were found in the lower third of the esophagus. Biopsies were obtained from the proximal and distal esophagus with cold forceps for histology of suspected eosinophilic esophagitis. Verification of patient identification for the specimen was done. Estimated blood loss was minimal. A moderate Schatzki ring was found in the lower third of the esophagus. A guidewire was placed and the scope was withdrawn. Dilation was performed with a Savary dilator with no resistance at 60 Fr. The dilation site was examined and showed moderate improvement in luminal narrowing. Estimated blood loss was minimal. A medium-sized hiatal hernia was present. No other significant abnormalities were identified in a careful examination of the stomach. The first portion of the duodenum was normal. Impression: - Esophageal mucosal changes consistent with eosinophilic esophagitis. Biopsied. - Moderate Schatzki ring. Dilated. - Medium-sized hiatal hernia. - Normal first portion of the duodenum. Recommendation: - Discharge patient to home. - Resume previous diet. - Use Protonix (pantoprazole) 40 mg PO BID for 8 weeks. - Continue present medications. Procedure Code(s): --- Professional --- 92923, Esophagogastroduodenoscopy, flexible, transoral; with insertion of guide wire followed by passage of dilator(s) through esophagus over guide wire 48765, 59,51, Esophagogastroduodenoscopy, flexible, transoral; with biopsy, single or multiple CPT copyright 2017 [employer]. All rights reserved. The codes documented in this report are preliminary and upon joy loader review may be revised to meet current compliance requirements. Melvin Padgett DO 11/28/2021 9:54:59 AM This report has been signed electronically. Number of Addenda: 0 Note Initiated On: 11/28/2021 9:12 AM
--- NOTE | 2021-11-28 09:56 | OP.CCLET_ITS ---
11/28/2021 Dave Marie [address] [place] [address] Re : Upper GI endoscopy procedure for Felicehaley Chapman Dear Dr. Marie This procedure was performed on Sunday, November 28, 2021. My impressions and recommendations are as follows: Impressions : - Esophageal mucosal changes consistent with eosinophilic esophagitis. Biopsied. - Moderate Schatzki ring. Dilated. - Medium-sized hiatal hernia. - Normal first portion of the duodenum. Recommendations : - Discharge patient to home. - Resume previous diet. - Use Protonix (pantoprazole) 40 mg PO BID for 8 weeks. - Continue present medications. My findings are described in the full procedure note, which is enclosed. If I can be of further assistance, please feel free to contact me at . Sincerely, Melvin Friend, 11/28/2021 9:54:59 AM This report has been signed electronically.
--- NOTE | 2021-11-28 10:01 | OP.COLON_ITS ---
Patient Name: Felice Chapman Procedure Date: 11/28/2021 9:30 AM Date of : 1960 Age: 61 Procedure: Colonoscopy Indications: Abdominal pain in the left lower quadrant, Abnormal CT of the GI tract Providers: Melvin Padgett DO Medicines: Monitored Anesthesia Care Patient Profile: This is a 61 year old female. Refer to note in patient chart for documentation of history and physical. Patient has symptoms of chronic dysphagia and dysphagia with solids. She is status post colonoscopy (normal) in the distant past. Last Colonoscopy: more than 10 years ago. Complications: No immediate complications. Procedure: Pre-Anesthesia Assessment: - Prior to the procedure, a History and Physical was performed, and patient medications and allergies were reviewed. The risks and benefits of the procedure and the sedation options and risks were discussed with the patient. All questions were answered and informed consent was obtained. Patient identification and proposed procedure were verified by the physician in the pre-procedure area. Mental Status Examination: alert and oriented. Airway Examination: normal oropharyngeal airway and neck mobility. Respiratory Examination: clear to auscultation. CV Examination: normal. Prophylactic Antibiotics: The patient does not require prophylactic antibiotics. Prior Anticoagulants: The patient has taken no previous anticoagulant or antiplatelet agents. After reviewing the risks and benefits, the patient was deemed in satisfactory condition to undergo the procedure. The anesthesia plan was to use monitored anesthesia care (MAC). Immediately prior to administration of medications, the patient was re-assessed for adequacy to receive sedatives. The heart rate, respiratory rate, oxygen saturations, blood pressure, adequacy of pulmonary ventilation, and response to care were monitored throughout the procedure. The physical status of the patient was re-assessed after the procedure. After I obtained informed consent, the scope was passed under direct vision. Throughout the procedure, the patient's blood pressure, pulse, and oxygen saturations were monitored continuously. The Endoscope was introduced through the anus and advanced to the terminal ileum. The colonoscopy was performed without difficulty. The patient tolerated the procedure well. The quality of the bowel preparation was good. Scope In: 9:31:58 AM Scope Withdrawal Time 0 hours 12 minutes 19 seconds Scope Out: 9:48:29 AM Total Procedure Duration Time 0 hours 16 minutes 31 seconds Findings: An area of moderately congested mucosa was found in the sigmoid colon. Biopsies were taken with a cold forceps for histology. Verification of patient identification for the specimen was done. Estimated blood loss was minimal. Multiple small and large-mouthed diverticula were found in the recto-sigmoid colon, sigmoid colon, descending colon, hepatic flexure and ascending colon. There was no evidence of diverticular bleeding. A patchy area of the terminal ileum was congested. Biopsies were taken with a cold forceps for histology. Verification of patient identification for the specimen was done. Estimated blood loss was minimal. Impression: - Congested mucosa in the sigmoid colon. Biopsied. - Moderate diverticulosis in the recto-sigmoid colon, in the sigmoid colon, in the descending colon, at the hepatic flexure and in the ascending colon. There was no evidence of diverticular bleeding. - Congested mucosa in the terminal ileum. Biopsied. Recommendation: - Discharge patient to home. - Resume regular diet today. - Continue present medications. - Await pathology results. - Repeat colonoscopy in 5 years for surveillance. Procedure Code(s): --- Professional --- 74424, Colonoscopy, flexible; with biopsy, single or multiple CPT copyright 2017 [employer]. All rights reserved. The codes documented in this report are preliminary and upon concert manager review may be revised to meet current compliance requirements. Melvin Padgett DO 11/28/2021 10:00:31 AM This report has been signed electronically. Number of Addenda: 0 Note Initiated On: 11/28/2021 9:30 AM
--- NOTE | 2021-11-28 10:02 | OP.CCLET_ITS ---
11/28/2021 Dave Marie [address] [place] [address] Re : Colonoscopy procedure for Felice Chapman Dear Dr. Marie This procedure was performed on Sunday, November 28, 2021. My impressions and recommendations are as follows: Impressions : - Congested mucosa in the sigmoid colon. Biopsied. - Moderate diverticulosis in the recto-sigmoid colon, in the sigmoid colon, in the descending colon, at the hepatic flexure and in the ascending colon. There was no evidence of diverticular bleeding. - Congested mucosa in the terminal ileum. Biopsied. Recommendations : - Discharge patient to home. - Resume regular diet today. - Continue present medications. - Await pathology results. - Repeat colonoscopy in 5 years for surveillance. My findings are described in the full procedure note, which is enclosed. If I can be of further assistance, please feel free to contact me at . Sincerely, Melvin Padgett, 11/28/2021 10:00:31 AM This report has been signed electronically.
== END 2021-11-28 10:44 | disposition home or self-care (01) ==
LOC: EN 07:51 → AC 07:52
PROVIDERS: PCP Family Medicine; Referring Provider Family Medicine; Visit Provider Internal Medicine Gastroenterology
PROC: 0DJD8ZZ Inspection of Lower Intestinal Tract, Via Natural or Artificial Opening Endoscopic (ICD-10-PCS; CPT 45378; principal; 2021-11-28 08:55)
DX: K22.2 Esophageal obstruction (principal); R13.10 Dysphagia, unspecified; K44.9 Diaphragmatic hernia without obstruction or gangrene; K57.30 Diverticulosis of large intestine without perforation or abscess without bleeding; Z79.899 Other long term (current) drug therapy; Z87.891 Personal history of nicotine dependence
CPT/HCPCS: 45380; 43239; 43248; 88305; J7120; C1769; J2405

== ENCOUNTER → 2021-12-12 | Outpatient (CLI) | payer BC, SELFPAY ==
[2021-12-14 15:08] LABS: Albumin 3.9 g/dL (2.9-4.4); Alpha-1-Globulins 0.2 g/dL (0.0-0.4); Alpha-2-Globulins 0.6 g/dL (0.4-1.0); Gamma Globulin 1.2 g/dL (0.4-1.8); Immunoglobulin A 145 mg/dL (87-352); Immunoglobulin G 1196 mg/dL (586-1602); Immunoglobulin M 107 mg/dL (26-217); PROEL- TOTAL PROTEIN 6.9 g/dL (6.0-8.5)
[2021-12-14 20:10] LABS: IMMUNOFIXATION RESULT,S Comment: (.)
== END | disposition home or self-care (01) ==
LOC: LAB 15:47
PROVIDERS: PCP Family Medicine; Referring Provider Nurse Practitioner Adult Health; Visit Provider Nurse Practitioner Adult Health
DX: R77.8 Other specified abnormalities of plasma proteins (principal)
CPT/HCPCS: 36415; 82784; 84165; 86334

== ENCOUNTER → 2022-01-03 | Outpatient (CLI) | payer BC, SELFPAY ==
--- NOTE | 2022-01-03 07:21 | CT_ITS ---
EXAM: CT ABDOMEN AND PELVIS WITH INTRAVENOUS CONTRAST CLINICAL INDICATION: intraabdominal fluid collection, compare to 09/2021 TECHNIQUE: Helically acquired images were obtained of the abdomen and pelvis with intravenous contrast. This CT exam was performed using one or more of the following dose reduction techniques: automated exposure control, adjustment of the mA and/or kV according to patient size, and/or use of iterative reconstruction technique. This report was created using [employer] report generation technology. CONTRAST: 100 mL IV Isovue-370. Oral contrast was also given. RADIATION DOSE: CTDIvol = 16.33 mGy, DLP = 1003.88 mGy-cm COMPARISON: CT abdomen and pelvis with contrast 09/17/2021. FINDINGS: LOWER THORAX: Unremarkable. Lung bases are clear. No cardiomegaly. No significant pericardial effusion. ABDOMEN: LIVER: Unremarkable. Homogeneous. No focal mass. GALLBLADDER AND BILE DUCTS: Unremarkable. No calcified gallstones. No gallbladder distention or wall edema. No intra- or extrahepatic biliary ductal dilation. PANCREAS: Unremarkable. No focal cystic or solid mass. SPLEEN: Unremarkable. Normal size without focal cystic or solid mass. ADRENALS: Unremarkable. No nodules. KIDNEYS AND URETERS: Unremarkable. Normal renal size and position. No hydronephrosis. STOMACH AND BOWEL: Multiple diverticula in sigmoid colon without diverticulitis. Fewer diverticula in the remaining colon. No stomach or bowel distention. PELVIS: APPENDIX: Normal. BLADDER: Unremarkable. REPRODUCTIVE: Unremarkable as visualized. No mass. Radiopaque clips in both fallopian tubes are unchanged. ABDOMEN and PELVIS: INTRAPERITONEAL SPACE: Unremarkable. No ascites or other fluid collection. No free air. BONES/JOINTS: 6.5 x 5.4 cm loculated fluid collection overlying the right iliac fossa is unchanged. It has a CT number of 19.7 Hounsfield units. No suspicious lytic or blastic abnormality. SOFT TISSUES: Unremarkable. No discrete abdominal or pelvic wall hernia. VASCULATURE: Unremarkable. Abdominal aorta is non-dilated. LYMPH NODES: Unremarkable. No enlarged lymph nodes. CT/Abdomen/Pelvis WITH Contrast IMPRESSION: 1. Loculated right retroperitoneal fluid overlying the right iliac fossa measuring 6.5 x 5.4 cm. This is unchanged. 2. Colonic diverticulosis without diverticulitis. 3. No acute abnormality in the abdomen and pelvis and no significant interval change since 09/17/2021. Electronically Signed: Jem Kaplan MD at 10:34 EST ,
== END | disposition home or self-care (01) ==
LOC: CT 07:20
PROVIDERS: PCP Family Medicine; Referring Provider Orthopaedic Surgery; Visit Provider Nurse Practitioner Adult Health
DX: R18.8 Other ascites (principal)
CPT/HCPCS: 74177; Q9967

== ENCOUNTER → 2022-03-27 | Outpatient (CLI) | payer BC, SELFPAY ==
[2022-03-27] VITALS (10 sets, daily range): BP systolic 119–151; BP diastolic 63–85; PULSE 52–79; RESP 13–20; O2SAT 40–100; BMI 27.3
--- NOTE | 2022-03-27 07:57 | CT_ITS ---
PROCEDURE: CT DIRECTED ABSCESS DRAINAGE, PERITONEAL DATE OF EXAMINATION: 03/27/2022. INDICATION: Female, 62 years old. Loculated fluid collection in the right hemipelvis. PHYSICIAN: Ten Bass M.D. CONSENT: Written informed consent was obtained having explained the risks, benefits and alternatives in detail with the patient who accepted the risks and agreed to proceed. Laboratory review and clinical assessment was performed. CONSCIOUS SEDATION PROTOCOL: The Drugs used were: 3 mg Versed, IV., and 100 mcg Fentanyl, IV. The sedation time was: 60 minutes. Conscious sedation was started at 9:15 AM 10:15 AM. The conscious sedation protocol was independently monitored. RADIATION DOSAGE (If Supplied By Facility): CTDIvol = ( 11 ) mGy, DLP = ( 1239.88 ) mGycm TECHNIQUE: CT sections were made through the abdomen and pelvis revealing a fluid collection in the right hemipelvis.. The skin surface was prepped and draped in a sterile fashion. Puncture of this collection was performed initially with a 5 English catheter and fluid was aspirated. Drainage catheter was then inserted into the collection and formed into position. No fluid was aspirated. The fluid must be too thick to drain percutaneously. CT/Biopsy/Inj or Needle Placement IMPRESSION: 1. CT directed drainage of a fluid collection using CT image guidance and image documentation as described. 2. Conscious Sedation protocol utilized with independent monitoring Electronically Signed: Ten Bass MD at 11:17 EST ,
[2022-03-27 07:58] LABS: Platelet Count 260 K/mm3 (150-450)
[2022-03-27 08:10] LABS: Prothrombin Time (Protime)PT. 12.9 SECONDS (11.7-14.9)
[2022-03-27 08:11] LABS: Partial Thromboplast Time 33.7 Seconds (24.1-36.2)
[2022-03-27] MEDS: Midazolam 2 MG/2 ML Syringe IV ×2 (09:15→10:07)
[2022-03-27] MEDS: fentaNYL 100 MCG/2 ML Ampul IV ×3 (09:19→09:50)
[2022-03-27] MEDS: Lidocaine 2% (20 ml mdv) 20 ML Vial INFILT (09:32)
== END | disposition home or self-care (01) ==
PROVIDERS: PCP Family Medicine; Referring Provider Nurse Practitioner Adult Health; Visit Provider Nurse Practitioner Adult Health
DX: R18.8 Other ascites (principal); Z86.718 Personal history of other venous thrombosis and embolism; Z79.899 Other long term (current) drug therapy; Z87.891 Personal history of nicotine dependence
CPT/HCPCS: 49406; 36415; 77012; 85049; 85610; 85730; 99156; 99157; J7050; A4216

== ENCOUNTER → 2022-09-07 | Outpatient (CLI) | payer BC, SELFPAY ==
--- NOTE | 2022-09-07 14:36 | CT_ITS ---
STUDY: CT ABDOMEN AND PELVIS WITH CONTRAST REASON FOR EXAM: Female, 62 years old. Abdominal pain and distention RADIATION DOSAGE (If Supplied By Facility): CTDIvol = ( 12.78 ) mGy, DLP = ( 634.88 ) mGycm TECHNIQUE: Transaxial images were obtained from the dome of the diaphragm to the symphysis pubis without oral contrast. Oral and amp; IV Readi-CAT and amp; 100mL Isovue-300 was administered. Sagittal and coronal images were reconstructed. Individualized dose optimization techniques were used for this CT. COMPARISON: 01/03/2022 FINDINGS: The visualized lung bases are unremarkable aside from dependent atelectasis. The visualized portions of the heart are within normal limits. Liver is unremarkable aside from a stable subcentimeter simple cyst in the right lobe. Normal gallbladder and extrahepatic biliary system. Normal spleen. Normal pancreas. Normal bilateral adrenal glands. Normal right kidney. Normal left kidney. Stomach is distended with oral contrast and food. Normal small intestine. There are multiple colonic diverticula consistent with diverticulosis. The appendix is visualized and appears normal. Appendix seen on coronal recon images 54 through 59 Normal abdominal aorta. Normal inferior vena cava. Normal retroperitoneum. Normal urinary bladder. Uterus is present, the endometrium cannot be accurately evaluated with CT. Evidence of previous tubal ligation Normal abdominal wall. Mild degenerative bony changes CT/Abdomen/Pelvis WITH Contrast IMPRESSION: No suspicious solid organ abnormality No free intraperitoneal fluid, air, or suspicious adenopathy, normal appendix visualized. Previously noted loculated fluid collection in the right flank is no longer identified Diverticulosis, no CT evidence of acute diverticulitis Uterus is present, the endometrium cannot be accurately evaluated with CT. Electronically Signed: Malvin Centeno MD at 8:44 EDT ,
[2022-09-07 15:03] LABS: CREATININE FINGERSTICK < 0.9 mg/dL (0.55-1.02); EGFR FINGERSTICK > 60.0000 mL/min (>60)
== END | disposition home or self-care (01) ==
LOC: CT 14:34
PROVIDERS: PCP Family Medicine; Referring Provider Internal Medicine Gastroenterology; Visit Provider Internal Medicine Gastroenterology
DX: Z01.812 Encounter for preprocedural laboratory examination (principal); R18.8 Other ascites
CPT/HCPCS: 74177; Q9967

== ENCOUNTER 2023-02-19 08:25 | Emergency (ER) | payer BC, SELFPAY ==
[2023-02-19 08:25] VITALS: BP 156/92; PULSE 76; RESP 16; TEMP 35.7; O2SAT 99; BMI 26.9
--- NOTE | 2023-02-19 08:44 | ED.VIS.BACK ---
HPI History of Present Illness Chief Complaint: Back Informant: patient Narrative Narrative: Patient presents with back, right hip, and leg pain is been intermittent for quite some time. Patient states pain started again yesterday and is radiating down her thigh. No known injury. No prior back surgeries or injections. She states she been seen by family resource management specialist in the past who thought it might be related to bursitis. PFSH PFSH Medical History Anxiety Arthritis Back pain DVT (deep venous thrombosis) Former smoker History of Clostridium difficile infection History of diverticulitis History of irregular heartbeat Injury of head and neck Migraine headache Post-menopausal Rheumatoid arthritis Shortness of breath on exertion Wears glasses Home Medications hydroxychloroquine 200 mg tablet 200 mg PO DAILY RA 11/24/21 [History Last Taken Unknown] lorazepam 03/27/22 [History Last Taken Unknown] pantoprazole 40 mg tablet,delayed release (Protonix) 40 mg PO QAM #90 tabs 08/01/22 [Rx Last Taken Unknown] cyclobenzaprine 10 mg tablet 10 mg PO TID PRN Muscle Spasm #20 TABLETS 02/19/23 [Rx Last Taken Unknown] hydrocodone-acetaminophen 5-325mg 5mg-325mg 1 tab PO Q6H PRN PRN Pain 3 days #10 TABLETS 02/19/23 [Rx Last Taken Unknown] naproxen 500 mg tablet (Naprosyn) 500 mg PO BID PRN pain #20 tabs 02/19/23 [Rx Last Taken Unknown] prednisone 20 mg tablet 40 mg (2 x 20 mg) PO DAILY #8 tabs 02/19/23 [Rx Last Taken Unknown] Allergy/AdvReac Type Severity Reaction Status Date / Time No Known Allergies Allergy Verified 05/15/22 15:42 Surgical History Hx of breast biopsy Hx of colonoscopy Hx of tonsillectomy Hx of tubal ligation Social History Smoking Status: Former smoker ROS ROS ED Constitutional Constitutional ED: Denies chills or fever(s) Eyes Eyes: Denies discharge from eye(s) ENT ENT ED: Denies discharge from eye(s), rhinorrhea or sore throat Cardiovascular Cardiovascular: Denies chest pain or palpitations Respiratory/Chest Respiratory/Chest: Denies cough or dyspnea Gastrointestinal Gastrointestinal: Denies abdominal pain, nausea or vomiting Genitourinary Genitourinary ED: Denies dysuria Musculoskeletal Musculoskeletal: Reports back pain and extremity pain Integumentary Denies Abrasions or rash Neurologic Neurologic: Denies headache(s), paresthesias or weakness Psychiatric Psychiatric: Denies anxiety or depression Allergic/Immunologic Allergic/Immunologic ED: Denies lip swelling or urticaria EXAM Physical Exam Const Vital Signs: 02/19/23 08:25 Temperature 96.2 F L Temperature Source Temporal Pulse Rate 76 Respiratory Rate 16 Blood Pressure 156/92 H Blood Pressure Mean 113 Pulse Ox 99 Oxygen Delivery Method Room Air Positive well nourished and well developed General Appearance ED: well developed HEENT Reports moist mucous membranes Eyes EOMs intact bilaterally Resp normal respiratory effort and clear to auscultation bilaterally Cardio regular rate and regular rhythm GI soft to palpation and non-tender Back/Spine Back/Spine Narrative: Reproducible tenderness of the midline L4 and L5 along with the right lumbar paraspinal muscles. No skin changes or erythema. Extremity Extremity Narrative: Full range of motion right lower extremity without difficulty. Strong distal pulses and normal sensation. Neuro oriented x3 and no sensory deficits noted Motor Exam: strength 5/5 throughout Psych mental status grossly normal Skin no rashes or lesions noted MDM MDM MDM Narrative Medical decision making narrative: Patient be sent for x-rays of the lumbar spine, pelvis, and right hip to evaluate for potential fracture, arthritic changes. Radiography Diagnostic Testing: Clinical Impression(s) from Imaging Studies Hip/Pelvis X-Ray 02/19/23 08:50 IMPRESSION: No acute abnormality is seen. Electronically Signed: Ten Bass MD at 9:03 EST , Lumbar Spine X-Ray 02/19/23 08:50 IMPRESSION: Degenerative changes of the spine, as detailed above. Electronically Signed: Ten Bass MD at 9:04 EST , Treatment and Re-Evaluation Narrative: X-rays per my interpretation reveal slight scoliosis change of lumbar spine, likely from muscle spasm. No fractures appreciated. Radiology interpretation is reviewed on both studies. No significant abnormalities appreciated. Patient be given prescriptions for naproxen, prednisone, Flexeril, and Burt. She is advised that she cannot operate heavy machinery or drive if requiring Flexeril or Burt for pain control. She is encouraged to call her primary care physician as she may require physical therapy. Return instructions given. Discharge Plan Triage Chief Complaint: Back ED Provider: Rosa Lozano Dx/Rx/DC Orders Clinical Impression: Sciatica Instructions: ED Sciatica Prescriptions: New naproxen [Naprosyn] 500 mg tablet 500 mg PO BID PRN (Reason: pain) Qty: 20 0RF prednisone 20 mg tablet 40 mg PO DAILY Qty: 8 0RF cyclobenzaprine 10 mg tablet 10 mg PO TID PRN (Reason: Muscle Spasm) Qty: 20 0RF hydrocodone-acetaminophen 5-325 mg tablet 1 tab PO Q6H PRN PRN (Reason: Pain) 3 Days Qty: 10 0RF No Action hydroxychloroquine 200 mg tablet 200 mg PO DAILY Patient Comments: PLEASE SEE ATTACHED FOR DETAILED DIRECTIONS lorazepam pantoprazole [Protonix] 40 mg tablet,delayed release (DR/EC) 40 mg PO QAM Qty: 90 3RF Stand Alone Forms: ED Work / School Excuse Primary Care Provider: Dave Marie Referrals: Dave Marie MD [Primary Care Provider] - 1-2 Weeks Disposition Disposition: Home, Self Care
--- NOTE | 2023-02-19 08:50 | RAD_ITS ---
STUDY: X-RAY - LUMBAR SPINE REASON FOR EXAM: Female, 62 years old. Chronic right hip pain and right lower extremity pain. TECHNIQUE: 3 view(s) of the lumbar spine were obtained. COMPARISON: None FINDINGS: There is an exaggerated lumbar lordosis. There is no substantial scoliosis. There is a normal alignment of the vertebrae. Normal vertebral bodies and endplates. Mild degree of disc space narrowing at the L4-L5 level. Facet joint osteoarthritis. The soft tissue structures are unremarkable. RAD/Lumbar Spine 2 or 3 Views IMPRESSION: Degenerative changes of the spine, as detailed above. Electronically Signed: Ten Bass MD at 9:04 EST ,
--- NOTE | 2023-02-19 08:50 | RAD_ITS ---
STUDY: X-RAY - PELVIS AND RIGHT HIP REASON FOR EXAM: Female, 62 years old. Chronic low back pain and right hip pain. TECHNIQUE: 3 views of the pelvis and hip. COMPARISON: None. FINDINGS: There is a non-specific bowel gas pattern. Presents of bilateral tubal ligation clips. Normal bilateral iliac wings, sacroiliac joints and visualized sacrum. Normal bilateral superior and inferior pubic rami. There is narrowing with sclerosis of the pubic symphysis. Normal bilateral ischial tuberosities. Normal visualized femoral head. Normal acetabulum. Normal hip joint. RAD/HIP, UNI W/ Pelvis 2-3 Views IMPRESSION: No acute abnormality is seen. Electronically Signed: Ten Bass MD at 9:03 EST ,
[2023-02-19] MEDS: cycloBENZAPRine HCl 10 MG Tablet PO (09:39)
[2023-02-19] MEDS: predniSONE 20 MG Tablet 40 MG PO (09:39)
[2023-02-19] MEDS: Naproxen 500 MG Tablet PO (09:39)
== END 2023-02-19 09:42 | disposition home or self-care (01) ==
PROVIDERS: Emergency Provider Emergency Medicine; PCP Family Medicine; Visit Provider Emergency Medicine
DX: M54.30 Sciatica, unspecified side (principal); Z87.891 Personal history of nicotine dependence
CPT/HCPCS: 72100; 73502; 99283

== ENCOUNTER → 2023-11-05 | Outpatient (CLI) | payer BC, SELFPAY ==
[2023-11-05 10:39] LABS: Erythrocyte Sedimentation Rate 4 mm/hr (0-30)
[2023-11-05 10:40] LABS: Absolute Lymphocyte Count 1.31 X10^3/uL (0.83-4.51); Absolute Neutrophil Count 5.2 X10^3/uL (2.0-7.7); Basophil# 0.01 X10^3/uL; Basophil% 0.1 % (0-1); Eosinophil# 0.02 X10^3/uL; Eosinophils% 0.3 % (0-5); Hematocrit 41.1 % (37-47); Hemoglobin 13.5 g/dL (12.0-15.0); Lymphocyte # 1.31 X10^3/ul (0.83-4.51); Lymphocyte % 18.3 % (19-41); Mean Corp Hgb Conc 32.8 g/dL (32-36); Mean Corpuscular Hgb 29.8 pg (27.0-32.0); Mean Corpuscular Volume 90.7 fL (81-99); Mean Platelet Vol. 9.3 fl (6.2-12.0); Monocyte# 0.62 X10^3/uL; Monocyte% 8.7 % (0-10); NRBC Flagged by Analyzer 0 % (0-5); Neutrophil # 5.17 X10^3/uL (2.7-7.7); Neutrophil % 72.3 % (47-70); Platelet Count 246 K/mm3 (150-450); RBC Distribution Width CV 12.9 % (11.6-14.6); RBC Distribution Width SD 42.5 fl (35.1-43.9); Red Blood Count 4.53 M/mm3 (4.2-5.4); White Blood Count 7.2 K/mm3 (4.4-11.0)
[2023-11-05 11:44] LABS: AST(SGOT) 24 U/L (15-37); Alanine Aminotransfer ALT/SGPT 44 U/L (13-56); Albumin, Serum 3.8 g/dL (3.2-5.0); Alkaline Phosphatase 85 U/L (45-117); Anion Gap 6 (5-15); BUN 9 mg/dL (7-18); BUN/Creat Ratio 12.3 RATIO (10-20); CRP 4.69 mg/L (0.0-3.0); Calcium,Total 9.4 mg/dL (8.5-10.1); Chloride 106 mmol/L (98-107); Creatinine, Serum 0.73 mg/dL (0.55-1.02); EST Glomerular Filtration Rate 86 mL/min (>60); Est Glom Filt Rate - Afr Amer 104 mL/min (>60); Globulin 3.7 g/dL (2.2-4.2); Glucose 95 mg/dL (74-106); LDH 222 U/L (84-246); Protein, Total 7.5 g/dL (6.4-8.2); Sodium Level 140 mmol/L (136-145)
[2023-11-07 16:11] LABS: ACCA 28 units (0-90); ALCA 18 units (0-60); AMCA 35 units (0-100); Albumin 3.8 g/dL (2.9-4.4); Alpha-1-Globulins 0.2 g/dL (0.0-0.4); Alpha-2-Globulins 0.7 g/dL (0.4-1.0); Gamma Globulin 1.1 g/dL (0.4-1.8); IMMUNOFIXATION RESULT,S Comment: (.); Immunoglobulin A 133 mg/dL (87-352); Immunoglobulin G 1131 mg/dL (586-1602); Immunoglobulin M 95 mg/dL (26-217); PROEL- TOTAL PROTEIN 6.7 g/dL (6.0-8.5); gASCA 27 units (0-50)
== END | disposition home or self-care (01) ==
LOC: LAB 10:11
PROVIDERS: PCP Family Medicine
DX: K57.90 Diverticulosis of intestine, part unspecified, without perforation or abscess without bleeding (principal)
CPT/HCPCS: 36415; 80053; 82784; 83516; 83615; 84165; 85025; 85652; 86036; 86140; 86334; 86671

== ENCOUNTER → 2023-11-06 | Outpatient (CLI) | payer BC, SELFPAY ==
[2023-11-09 00:07] LABS: Giardia Lamblia, Stool EIA Negative (Negative); Pancreatic Elastase, Fecal 529 (>200)
[2023-11-09 14:10] LABS: Calprotectin, Stool 83 ug/g (0-120)
== END | disposition home or self-care (01) ==
LOC: LAB 07:02 → LABSPEC 07:03
PROVIDERS: PCP Family Medicine
DX: K57.90 Diverticulosis of intestine, part unspecified, without perforation or abscess without bleeding (principal); K58.9 Irritable bowel syndrome, unspecified
CPT/HCPCS: 82653; 83630; 83993; 87329; 87506

== ENCOUNTER → 2023-11-20 | Outpatient (CLI) | payer BC, SELFPAY ==
--- NOTE | 2023-11-20 07:48 | CT_ITS ---
STUDY: CT ABDOMEN AND PELVIS WITH CONTRAST REASON FOR EXAM: Female, 63 years old. diverticular disease, new diarrhea RADIATION DOSAGE (If Supplied By Facility): CTDIvol = ( 13.10 ) mGy, DLP = ( 648.33 ) mGycm TECHNIQUE: Transaxial images were obtained from the dome of the diaphragm to the symphysis pubis with oral contrast. Oral and amp; IV Readi-CAT and amp; 100mL Isovue-300 was administered. Sagittal and coronal images were reconstructed. Individualized dose optimization techniques were used for this CT. COMPARISON: 09/07/2022. FINDINGS: The visualized lung bases are unremarkable. The visualized portions of the heart are within normal limits. Normal liver. Normal gallbladder and extrahepatic biliary system. Normal spleen. Normal pancreas. Normal bilateral adrenal glands. Normal right kidney. Normal left kidney. Normal visualized stomach. Normal small intestine. Normal caliber large bowel. Prominent fecal retention and fecal impaction is not excluded. Diverticulosis without definite diverticulitis. The appendix is visualized and appears normal. Normal abdominal aorta. Normal inferior vena cava. Normal retroperitoneum. Normal urinary bladder. Normal visualized uterus. Normal abdominal wall. Normal osseous structures. CT/Abdomen/Pelvis WITH Contrast IMPRESSION: No definite acute or significant abnormality seen. Prominent fecal retention and fecal impaction is not excluded. Diverticulosis without definite diverticulitis. Electronically Signed: Omer Sosa MD at 16:19 EDT ,
== END | disposition home or self-care (01) ==
LOC: CT 07:40
PROVIDERS: PCP Family Medicine
DX: K57.90 Diverticulosis of intestine, part unspecified, without perforation or abscess without bleeding (principal)
CPT/HCPCS: 74177; Q9967

== ENCOUNTER → 2024-02-12 | Outpatient (CLI) | payer BC, SELFPAY ==
--- NOTE | 2024-02-12 16:16 | RAD_ITS ---
STUDY: X-RAY - ABDOMEN/PELVIS REASON FOR EXAM: Female, 63 years old. Abdominal pain and distention TECHNIQUE: Two AP supine views of the abdomen and pelvis. COMPARISON: None. FINDINGS: Normal visualized lung bases. There is an abundance of fecal material throughout the colon. There is no demonstrated free abdominal air. The visualized liver, spleen and kidneys are grossly normal in size and morphology. Normal soft tissue structures. Normal visualized osseous structures. RAD/Abdomen Single View IMPRESSION: No acute abnormalities, retained stool Electronically Signed: Malvin Centeno MD at 23:34 EST ,
== END | disposition home or self-care (01) ==
LOC: RAD 16:12
PROVIDERS: PCP Family Medicine; Referring Provider Student in an Organized Health Care Education/Training Program; Visit Provider Student in an Organized Health Care Education/Training Program
DX: K59.00 Constipation, unspecified (principal)
CPT/HCPCS: 74018

== ENCOUNTER → 2024-02-15 | Outpatient (CLI) | payer BC, SELFPAY ==
--- NOTE | 2024-02-15 07:15 | US_ITS ---
HISTORY: elevated bilirubin. TECHNIQUE: Clancy scale and color doppler imaging was performed of the right upper quadrant. 78 images. COMPARISON: CT 11/20/2023. FINDINGS: LIVER: 14.8 cm in length. Mildly echogenic without focal lesion demonstrated. No intrahepatic ductal dilatation. MAIN PORTAL VEIN: Patent with flow in the appropriate direction. COMMON BILE DUCT: 5 mm in diameter. GALLBLADDER: No gallstones. 2 mm wall thickness. No pericholecystic fluid. Sonographic Alcantar sign negative. PANCREAS: Visualized proximal portion unremarkable. RIGHT KIDNEY: 10.8 cm in length with a cortical thickness of 1.3 cm. No hydronephrosis or gross renal mass demonstrated. US/Gallbladder IMPRESSION: No sonographic evidence of cholelithiasis. Mild hepatic steatosis. Electronically Signed: Mckenzie Genao MD at 15:40 EST ,
[2024-02-18 07:07] LABS: Giardia Lamblia, Stool EIA Negative (Negative); Pancreatic Elastase, Fecal > 800 (>200)
[2024-02-20 08:10] LABS: Calprotectin, Stool 32 ug/g (0-120)
== END | disposition home or self-care (01) ==
PROVIDERS: PCP Family Medicine; Referring Provider Student in an Organized Health Care Education/Training Program; Visit Provider Student in an Organized Health Care Education/Training Program
DX: K58.9 Irritable bowel syndrome, unspecified (principal); R19.5 Other fecal abnormalities; R17 Unspecified jaundice

== ENCOUNTER → 2024-09-11 | Outpatient (CLI) | payer BC, SELFPAY ==
--- NOTE | 2024-09-11 08:50 | US_ITS ---
PROCEDURE: EXT NON VASC LIMITED/SOFT TISS 09/11/2024 REASON FOR EXAM: SWELLING/LUMP/MASS RLE Palpable lump in the anterior aspect of the right ankle. TECHNIQUE: EXT NON VASC LIMITED/SOFT TISS COMPARISON: None FINDINGS: The palpable lump corresponds to a well encapsulated isoechoic 3 cm x 1.2 cm by 0.3 cm hypoechoic soft tissue mass. Patient has a history of injury 13 years ago. US/Ext Non Vasc Limited/Soft Tiss IMPRESSION: The palpable lump corresponds to a 3 cm x 1.2 cm x 0.3 cm hypoechoic soft tissu e mass. This may represent an area of scarring. Reading Location: [facility]
--- NOTE | 2024-09-11 08:50 | US_ITS ---
PROCEDURE: EXT NON VASC LIMITED/SOFT TISS 09/11/2024 REASON FOR EXAM: SWELLING/LUMP/MASS RLE Palpable lump in the anterior aspect of the right ankle. TECHNIQUE: EXT NON VASC LIMITED/SOFT TISS COMPARISON: None FINDINGS: The palpable lump corresponds to a well encapsulated isoechoic 3 cm x 1.2 cm by 0.3 cm hypoechoic soft tissue mass. Patient has a history of injury 13 years ago. US/Ext Non Vasc Limited/Soft Tiss IMPRESSION: The palpable lump corresponds to a 3 cm x 1.2 cm x 0.3 cm hypoechoic soft tissu e mass. This may represent an area of scarring. Reading Location: [facility]
== END | disposition home or self-care (01) ==
PROVIDERS: PCP Family Medicine; Referring Provider Student in an Organized Health Care Education/Training Program; Visit Provider Student in an Organized Health Care Education/Training Program
DX: R22.41 Localized swelling, mass and lump, right lower limb (principal)
CPT/HCPCS: 76882